=== PATIENT | female | born 1950 | race Caucasian/White ===

== ENCOUNTER 2018-06-23 12:22 | Emergency (ER) | payer MEDICARE, OTHER, SELFPAY ==
[2018-06-23 12:24] VITALS: BP 134/88; PULSE 106; RESP 20; TEMP 36.8; O2SAT 96; BMI 27.4
[2018-06-23 12:28] VITALS: PULSE 86; RESP 22; O2SAT 98
[2018-06-23] MEDS: ALBUTEROL 2.5 MG/3 ML NEB (ADULT) INH (12:28)
--- NOTE | 2018-06-23 12:59 | DI.RAD.S_ITS ---
PROCEDURE: XR CHEST 1V INDICATIONS: short of breath TECHNIQUE: One view of the chest was acquired. COMPARISON: [facility], , CHEST 2 VIEW, 10/23/2008, 1:15. FINDINGS: Surgical changes and devices: None. Lungs and pleura: No pleural effusions or pneumothorax. Lungs are clear. Mediastinum: Mediastinal contours appear normal. Heart size is normal. Bones and chest wall: No suspicious bony lesions. Overlying soft tissues appear unremarkable. IMPRESSION: No acute cardiopulmonary findings. Dictated by: Ira Messina M.D. on 06/23/2018 at 14:23 Approved by: Ira Messina M.D. on 06/23/2018 at 14:23
[2018-06-23 13:00] VITALS: BP 124/93; PULSE 83; RESP 12; O2SAT 100
--- NOTE | 2018-06-23 13:01 | ED.SOB ---
HPI - SOB/Dyspnea General Chief Complaint: Shortness of Breath/Dyspnea Stated Complaint: SOB Time Seen by Provider: 06/23/18 12:31 Source: patient Mode of arrival: ambulatory Limitations: no limitations History of Present Illness Patient is a 68-year-old female with history of asthma presenting with shortness of breath. She says over last 2-3 days she has needed to use her albuterol inhaler about every 2-3 hours. This is pretty atypical for her. She feels her chest gets tight with exertion. No fever no productive cough she does not have chest heaviness or heart palpitations. She has had 1 breathing treatment and does feel little bit better but does not feel back to normal. His MD Complaint: shortness of breath Severity: moderate Exacerbating factors: exertion Related Data Home Medications Medication Instructions Recorded Confirmed Adrenal Stess Calm 1 tab PO DIRECTED 06/23/18 06/23/18 albuterol sulfate [Ventolin HFA] 2 puff INHALATION Q4H PRN 06/23/18 06/23/18 cetirizine [Allergy Relief 10 mg PO DAILY 06/23/18 06/23/18 (cetirizine)] chlorpheniramine maleate 4 mg PO PRN PRN 06/23/18 06/23/18 fluticasone [Flonase Allergy 1 spray INTRANASAL BID 06/23/18 06/23/18 Relief] fluticasone [Flovent HFA] 1 puff INHALATION BID 06/23/18 06/23/18 glucosamine aia-zmprpcrgfs-nvk 1 tab PO DIRECTED 06/23/18 06/23/18 lorazepam [Ativan] 0.25 - 0.5 mg PO Q8H PRN 06/23/18 06/23/18 gfqbgmga-hgm-ofij-FA-lutein 1 tab PO DAILY 06/23/18 06/23/18 [Centrum Silver Women] fvkyz-2a-rxv-epa-fish oil [Fish 1 cap PO DAILY 06/23/18 06/23/18 Oil] sertraline 50 mg PO DAILY 06/23/18 06/23/18 vitamin B complex 1 tab PO DIRECTED 06/23/18 06/23/18 vitamin E 400 unit PO DAILY 06/23/18 06/23/18 Previous Rx's Medication Instructions Recorded prednisone 40 mg PO DAILY #10 tab 06/23/18 Allergies Allergy/AdvReac Type Severity Reaction Status Date / Time venlafaxine [From Effexor] AdvReac Intermediate Difficulty Verified 06/23/18 14:57 Breathing bupropion AdvReac Unknown Anxiety Verified 06/23/18 14:57 escitalopram [From Lexapro] AdvReac Unknown Verified 06/23/18 14:54 fluoxetine AdvReac Unknown Verified 06/23/18 14:57 mirtazapine AdvReac Unknown Verified 06/23/18 14:56 Review of Systems Review of Systems All systems reviewed & are unremarkable except as noted in HPI and below Constitutional Denies chills, Denies fever(s), Denies lethargy and Denies weakness Cardiovascular Reports as per HPI and Reports chest pain Respiratory Reports as per HPI Gastrointestinal Gastrointestinal: Denies abdominal pain, Denies change in bowel habits, Denies diarrhea, Denies nausea and Denies vomiting Musculoskeletal Denies back pain, Denies muscle weakness, Denies numbness and Denies tingling Integumentary/Breasts Denies pruritus, Denies erythema, Denies rash and Denies wounds Neurologic Denies numbness, Denies tingling and Denies weakness [facility] Medical History Asthma (Acute) Social History Smoking Status: Never smoker Exam Initial Vital Signs Initial Vital Signs: Vital Signs Temperature 98.3 F 06/23/18 12:24 Pulse Rate 106 H 06/23/18 12:24 Respiratory Rate 20 06/23/18 12:24 Blood Pressure 134/88 06/23/18 12:24 Pulse Oximetry 96 06/23/18 12:24 GENERAL: Well-appearing, well-nourished and in no acute distress. HEENT: Head atraumatic,EOMI, pupils reactive CARDIOVASCULAR: Regular rate and rhythm without murmurs, rubs or gallops. RESPIRATORY: Decreased breath sounds bilaterally faint expiratory wheezing speak in full sentences no sign of respiratory distress ABDOMEN: Soft, nontender. Normoactive bowel sounds all 4 quadrants. No guarding or rebound. EXTREMITIES: Normal range of motion, no clubbing or edema. Neurovascularly intact NEUROLOGICAL: Alert and oriented x4.Normal gait and speech. Cranial nerves II through XII grossly intact. SKIN: Warm, dry, no laceration, no petechiae, no rashes or lesions. Course Orders Ordered: ED Orders 06/23/18 12:15 EKG-12 Lead Stat 06/23/18 12:58 Consult to Respiratory Therapy Evaluate & Treat B Type Natriuretic Peptide Stat Complete Blood Count AUTO DIFF Stat Comprehensive Metabolic Panel Stat Magnesium Stat Procalcitonin Stat Troponin & CK Cardiac Panel Stat 06/23/18 12:59 XR chest 1V Stat Comprehensive Metabolic Panel Stat Discontinued Medications Albuterol (Ventolin) 2.5 mg INH NOW ONE Stop: 06/23/18 12:28 Last Admin: 06/23/18 12:28 Dose: 2.5 mg Albuterol (Proventil 0.5% Neb Solution) 10 mg INH CONT LILIAN Stop: 06/23/18 13:58 Last Admin: 06/23/18 13:11 Dose: 10 mg Albuterol/Ipratropium (Duoneb) 3 ml INH NOW ONE Stop: 06/23/18 12:59 Last Admin: 06/23/18 13:11 Dose: 3 ml Methylprednisolone (Solu-Medrol 125 Mg Vial) 125 mg IV NOW ONE Stop: 06/23/18 12:59 Last Admin: 06/23/18 13:19 Dose: 125 mg Vital Signs - 8 hr 06/23/18 12:24 06/23/18 12:28 06/23/18 13:00 Temperature 98.3 F Pulse Rate 106 H 86 83 Respiratory Rate 20 22 12 Blood Pressure 134/88 Blood Pressure [Right Arm] 124/93 H Pulse Oximetry 96 98 100 06/23/18 13:22 06/23/18 13:30 06/23/18 14:42 Temperature Pulse Rate 87 89 105 H Respiratory Rate 16 18 19 Blood Pressure Blood Pressure [Right Arm] 126/83 121/78 Pulse Oximetry 100 96 94 MDM - SOB/Dyspnea Lab Data Attestation: I reviewed the patient's lab results. Result diagrams: 06/23/18 13:15 06/23/18 13:15 Lab Results 06/23/18 06/23/18 06/23/18 Range/Units 13:15 13:15 13:15 WBC 8.0 (4.5-11.0) X10^3/uL RBC 4.84 (4.0-5.2) X10^6/uL Hgb 14.2 (12.0-16.0) g/dL Hct 41.7 (36-46) % MCV 86.1 (80-100) fL MCH 29.4 (26-34) PG MCHC 34.2 (30-36) % RDW 13.7 (11.6-14.8) % Plt Count 310 (150-400) X10^3/uL Neut % (Auto) 60.2 (50-75) % Lymph % (Auto) 24.5 L (25-40) % [place] % (Auto) 6.1 (3-14) % Eos % (Auto) 8.7 H (2-4) % Baso % (Auto) 0.5 (0-2) % Neut # (Auto) 4800 (8391-8812) /uL Sodium 141 (137-145) mmol/L Potassium 4.1 (3.4-5.1) mmol/L Chloride 102 (98-107) mmol/L Carbon Dioxide 25 (22-32) mmol/L BUN 13 (7-17) mg/dL Creatinine 0.50 L (0.52-1.04) mg/dL Estimated GFR > 60.0 (>60) mL/min BUN/Creatinine Ratio 26.0 H (6-22) Glucose 91 (80-110) mg/dL Calcium 9.4 (8.4-10.2) mg/dL Magnesium 2.1 (1.6-2.3) mg/dL Total Bilirubin 0.3 (0.2-1.3) mg/dL AST 31 (14-36) IU/L ALT 25 (9-52) IU/L Alkaline Phosphatase 86 (38-126) U/L Total Creatine Kinase 47 (30-135) U/L CK-MB (CK-2) TNP CK-MB (CK-2) Rel Index TNP Troponin I < 0.012 (0.01-0.034) ng/mL B-Natriuretic Peptide < 100.0 (<100) Total Protein 7.3 (6.3-8.2) g/dL Albumin 4.4 (3.5-5.0) g/dL Globulin 2.9 (1.7-4.1) g/dL Albumin/Globulin Ratio 1.5 (1.0-2.8) Procalcitonin < 0.05 (<0.5) ng/mL Imaging Data Chest x-ray: Radiologist's impression: [address] [address] XRay Report Signed Patient: Paz Garcia [facility]#: [id number] : 1Acct:[id number] Age/Sex: 68 / FDate of Service: 06/23/18 Loc: ED Accession Number: [id number] Procedure: XR chest 1V Ordering Provider: Tara Lai D.O. PROCEDURE: XR CHEST 1V INDICATIONS: short of breath TECHNIQUE: One view of the chest was acquired. COMPARISON: [facility], , CHEST 2 VIEW, 10/23/2008, 1:15. FINDINGS: Surgical changes and devices: None. Lungs and pleura: No pleural effusions or pneumothorax. Lungs are clear. Mediastinum: Mediastinal contours appear normal. Heart size is normal. Bones and chest wall: No suspicious bony lesions. Overlying soft tissues appear unremarkable. IMPRESSION: No acute cardiopulmonary findings. Dictated by: Ira Messina M.D. on 06/23/2018 at 14:23 Approved by: Ira Messina M.D. on 06/23/2018 at 14:23 ECG Data Attestation: I personally reviewed and interpreted this ECG as follows: Prior ECG tracings: available for review Interpretation: Normal sinus rhythm rate [address] changes no T-wave inversions, [place] interval 155 QRS 81 similar to previous EKG in 2008 [facility] Narrative Medical decision making narrative: Patient overall is feeling much better after multiple albuterol. She was never hypoxic or in significant respiratory distress. Will start her on prednisone. She feels much better and ready and able to go home Discharge Plan Departure Patient Disposition: Home Clinical Impression: Asthma with exacerbation Discharge Date/Time: 06/23/18 15:18 Interventions: ED Discharge Assessment Last Done: 06/23/18 15:18 Instructions: Asthma -- Adult Activity Restrictions/Additional Instructions: *You have been diagnosed with asthma exacerbation *What to do: Rest, increase fluids, x-rays clear no sign of pneumonia no antibiotics needed at this time *Continue to take medications as directed -prednisone 40 mg once a day for the next 5 days -albuterol inhaler 1-2 puffs every 4 hr if needed for shortness of breath *Follow up with your primary care provider in 2-3 days *Return to ER if you should have increasing shortness of breath, fever or any new, worsening or concerning symptoms Prescriptions: New prednisone 20 mg tablet 40 mg PO DAILY Qty: 10 RF: 0 No Action Adrenal Stess Calm tablet 1 tab PO DIRECTED RF: 0 chlorpheniramine maleate 4 mg Tablet 4 mg PO PRN PRN (Reason: Allergy Symptoms) RF: 0 cetirizine [Allergy Relief (cetirizine)] 10 mg Tablet 10 mg PO DAILY RF: 0 lorazepam [Ativan] 0.5 mg Tablet 0.25 - 0.5 mg PO Q8H PRN (Reason: Sleep) RF: 0 vitamin B complex Tablet 1 tab PO DIRECTED RF: 0 albuterol sulfate [Ventolin HFA] 90 mcg/actuation Hfa Aerosol Inhaler 2 puff INHALATION Q4H PRN (Reason: Shortness Of Breath) RF: 0 fluticasone [Flonase Allergy Relief] 50 mcg/actuation [place],Suspension 1 spray Intranasal BID RF: 0 sertraline 50 mg Tablet 50 mg PO DAILY RF: 0 vitamin E 400 unit Capsule 400 unit PO DAILY RF: 0 fluticasone [Flovent HFA] 110 mcg/actuation Hfa Aerosol Inhaler 1 puff INHALATION BID RF: 0 nfjkprmi-pxw-ljwo-FA-lutein [Centrum Silver Women] 8 mg iron-400 mcg-300 mcg Tablet 1 tab PO DAILY RF: 0 svjkj-2y-qxd-epa-fish oil [Fish Oil] 120 mg-180 mg- 60 mg-1,200 mg Capsule,Delayed Release(Dr/Ec) 1 cap PO DAILY RF: 0 glucosamine sbr-vluyvvelij-hef 1 tab PO DIRECTED RF: 0 Referrals: Niraj Cantu MD [Primary Care Provider] -
--- NOTE | 2018-06-23 13:04 | ED_ITS ---
HPI - SOB/Dyspnea General Chief Complaint: Shortness of Breath/Dyspnea Stated Complaint: SOB Time Seen by Provider: 06/23/18 12:31 Source: patient Mode of arrival: ambulatory Limitations: no limitations History of Present Illness Patient is a 68-year-old female with history of asthma presenting with shortness of breath. She says over last 2-3 days she has needed to use her albuterol inhaler about every 2-3 hours. This is pretty atypical for her. She feels her chest gets tight with exertion. No fever no productive cough she does not have chest heaviness or heart palpitations. She has had 1 breathing treatment and does feel little bit better but does not feel back to normal. His MD Complaint: shortness of breath Severity: moderate Exacerbating factors: exertion Related Data Home Medications Medication Instructions Recorded Confirmed Adrenal Stess Calm 1 tab PO DIRECTED 06/23/18 06/23/18 albuterol sulfate [Ventolin HFA] 2 puff INHALATION Q4H PRN 06/23/18 06/23/18 cetirizine [Allergy Relief 10 mg PO DAILY 06/23/18 06/23/18 (cetirizine)] chlorpheniramine maleate 4 mg PO PRN PRN 06/23/18 06/23/18 fluticasone [Flonase Allergy 1 spray INTRANASAL BID 06/23/18 06/23/18 Relief] fluticasone [Flovent HFA] 1 puff INHALATION BID 06/23/18 06/23/18 glucosamine eiu-whmykirkvs-lhb 1 tab PO DIRECTED 06/23/18 06/23/18 lorazepam [Ativan] 0.25 - 0.5 mg PO Q8H PRN 06/23/18 06/23/18 zhdedaad-xnr-ifyw-FA-lutein 1 tab PO DAILY 06/23/18 06/23/18 [Centrum Silver Women] zoicp-8t-xsi-epa-fish oil [Fish 1 cap PO DAILY 06/23/18 06/23/18 Oil] sertraline 50 mg PO DAILY 06/23/18 06/23/18 vitamin B complex 1 tab PO DIRECTED 06/23/18 06/23/18 vitamin E 400 unit PO DAILY 06/23/18 06/23/18 Previous Rx's Medication Instructions Recorded prednisone 40 mg PO DAILY #10 tab 06/23/18 Allergies Allergy/AdvReac Type Severity Reaction Status Date / Time venlafaxine [From Effexor] AdvReac Intermediate Difficulty Verified 06/23/18 14: 57 Breathing bupropion AdvReac Unknown Anxiety Verified 06/23/18 14:57 escitalopram [From Lexapro] AdvReac Unknown Verified 06/23/18 14:54 fluoxetine AdvReac Unknown Verified 06/23/18 14:57 mirtazapine AdvReac Unknown Verified 06/23/18 14:56 Review of Systems Review of Systems All systems reviewed & are unremarkable except as noted in HPI and below Constitutional Denies chills, Denies fever(s), Denies lethargy and Denies weakness Cardiovascular Reports as per HPI and Reports chest pain Respiratory Reports as per HPI Gastrointestinal Gastrointestinal: Denies abdominal pain, Denies change in bowel habits, Denies diarrhea, Denies nausea and Denies vomiting Musculoskeletal Denies back pain, Denies muscle weakness, Denies numbness and Denies tingling Integumentary/Breasts Denies pruritus, Denies erythema, Denies rash and Denies wounds Neurologic Denies numbness, Denies tingling and Denies weakness [facility] Medical History Asthma (Acute) Social History Smoking Status: Never smoker Exam Initial Vital Signs Initial Vital Signs: Vital Signs Temperature 98.3 F 06/23/18 12:24 Pulse Rate 106 H 06/23/18 12:24 Respiratory Rate 20 06/23/18 12:24 Blood Pressure 134/88 06/23/18 12:24 Pulse Oximetry 96 06/23/18 12:24 GENERAL: Well-appearing, well-nourished and in no acute distress. HEENT: Head atraumatic,EOMI, pupils reactive CARDIOVASCULAR: Regular rate and rhythm without murmurs, rubs or gallops. RESPIRATORY: Decreased breath sounds bilaterally faint expiratory wheezing speak in full sentences no sign of respiratory distress ABDOMEN: Soft, nontender. Normoactive bowel sounds all 4 quadrants. No guarding or rebound. EXTREMITIES: Normal range of motion, no clubbing or edema. Neurovascularly intact NEUROLOGICAL: Alert and oriented x4.Normal gait and speech. Cranial nerves II through XII grossly intact. SKIN: Warm, dry, no laceration, no petechiae, no rashes or lesions. Course Orders Ordered: ED Orders 06/23/18 12:15 EKG-12 Lead Stat 06/23/18 12:58 Consult to Respiratory Therapy Evaluate & Treat B Type Natriuretic Peptide Stat Complete Blood Count AUTO DIFF Stat Comprehensive Metabolic Panel Stat Magnesium Stat Procalcitonin Stat Troponin & CK Cardiac Panel Stat 06/23/18 12:59 XR chest 1V Stat Comprehensive Metabolic Panel Stat Discontinued Medications Albuterol (Ventolin) 2.5 mg INH NOW ONE Stop: 06/23/18 12:28 Last Admin: 06/23/18 12:28 Dose: 2.5 mg Albuterol (Proventil 0.5% Neb Solution) 10 mg INH CONT LILIAN Stop: 06/23/18 13:58 Last Admin: 06/23/18 13:11 Dose: 10 mg Albuterol/Ipratropium (Duoneb) 3 ml INH NOW ONE Stop: 06/23/18 12:59 Last Admin: 06/23/18 13:11 Dose: 3 ml Methylprednisolone (Solu-Medrol 125 Mg Vial) 125 mg IV NOW ONE Stop: 06/23/18 12:59 Last Admin: 06/23/18 13:19 Dose: 125 mg Vital Signs - 8 hr 06/23/18 12:24 06/23/18 12:28 06/23/18 13:00 Temperature 98.3 F Pulse Rate 106 H 86 83 Respiratory Rate 20 22 12 Blood Pressure 134/88 Blood Pressure [Right Arm] 124/93 H Pulse Oximetry 96 98 100 06/23/18 13:22 06/23/18 13:30 06/23/18 14:42 Temperature Pulse Rate 87 89 105 H Respiratory Rate 16 18 19 Blood Pressure Blood Pressure [Right Arm] 126/83 121/78 Pulse Oximetry 100 96 94 MDM - SOB/Dyspnea Lab Data Attestation: I reviewed the patient's lab results. Result diagrams: 06/23/18 13:15 06/23/18 13:15 Lab Results 06/23/18 06/23/18 06/23/18 Range/Units 13:15 13:15 13:15 WBC 8.0 (4.5-11.0) X10^3/uL RBC 4.84 (4.0-5.2) X10^6/uL Hgb 14.2 (12.0-16.0) g/dL Hct 41.7 (36-46) % MCV 86.1 (80-100) fL MCH 29.4 (26-34) PG MCHC 34.2 (30-36) % RDW 13.7 (11.6-14.8) % Plt Count 310 (150-400) X10^3/uL Neut % (Auto) 60.2 (50-75) % Lymph % (Auto) 24.5 L (25-40) % [place] % (Auto) 6.1 (3-14) % Eos % (Auto) 8.7 H (2-4) % Baso % (Auto) 0.5 (0-2) % Neut # (Auto) 4800 (6262-2809) /uL Sodium 141 (137-145) mmol/L Potassium 4.1 (3.4-5.1) mmol/L Chloride 102 (98-107) mmol/L Carbon Dioxide 25 (22-32) mmol/L BUN 13 (7-17) mg/dL Creatinine 0.50 L (0.52-1.04) mg/dL Estimated GFR > 60.0 (>60) mL/min BUN/Creatinine Ratio 26.0 H (6-22) Glucose 91 (80-110) mg/dL Calcium 9.4 (8.4-10.2) mg/dL Magnesium 2.1 (1.6-2.3) mg/dL Total Bilirubin 0.3 (0.2-1.3) mg/dL AST 31 (14-36) IU/L ALT 25 (9-52) IU/L Alkaline Phosphatase 86 (38-126) U/L Total Creatine Kinase 47 (30-135) U/L CK-MB (CK-2) TNP CK-MB (CK-2) Rel Index TNP Troponin I < 0.012 (0.01-0.034) ng/mL B-Natriuretic Peptide < 100.0 (<100) Total Protein 7.3 (6.3-8.2) g/dL Albumin 4.4 (3.5-5.0) g/dL Globulin 2.9 (1.7-4.1) g/dL Albumin/Globulin Ratio 1.5 (1.0-2.8) Procalcitonin < 0.05 (<0.5) ng/mL Imaging Data Chest x-ray: Radiologist's impression: [address] [address] XRay Report Signed Patient: Paz Garcia [facility]#: [id number] : 1Acct:[id number] Age/Sex: 68 / FDate of Service: 06/23/18 Loc: ED Accession Number: [id number] Procedure: XR chest 1V Ordering Provider: Tara Lai D.O. PROCEDURE: XR CHEST 1V INDICATIONS: short of breath TECHNIQUE: One view of the chest was acquired. COMPARISON: [facility], , CHEST 2 VIEW, 10/23/2008, 1:15. FINDINGS: Surgical changes and devices: None. Lungs and pleura: No pleural effusions or pneumothorax. Lungs are clear. Mediastinum: Mediastinal contours appear normal. Heart size is normal. Bones and chest wall: No suspicious bony lesions. Overlying soft tissues appear unremarkable. IMPRESSION: No acute cardiopulmonary findings. Dictated by: Ira Messina M.D. on 06/23/2018 at 14:23 Approved by: Ira Messina M.D. on 06/23/2018 at 14:23 ECG Data Attestation: I personally reviewed and interpreted this ECG as follows: Prior ECG tracings: available for review Interpretation: Normal sinus rhythm rate [address] changes no T-wave inversions, [place] interval 155 QRS 81 similar to previous EKG in 2008 [facility] Narrative Medical decision making narrative: Patient overall is feeling much better after multiple albuterol. She was never hypoxic or in significant respiratory distress. Will start her on prednisone. She feels much better and ready and able to go home Discharge Plan Departure Patient Disposition: Home Clinical Impression: Asthma with exacerbation Discharge Date/Time: 06/23/18 15:18 Interventions: ED Discharge Assessment Last Done: 06/23/18 15:18 Instructions: Asthma -- Adult Activity Restrictions/Additional Instructions: *You have been diagnosed with asthma exacerbation *What to do: Rest, increase fluids, x-rays clear no sign of pneumonia no antibiotics needed at this time *Continue to take medications as directed -prednisone 40 mg once a day for the next 5 days -albuterol inhaler 1-2 puffs every 4 hr if needed for shortness of breath *Follow up with your primary care provider in 2-3 days *Return to ER if you should have increasing shortness of breath, fever or any new, worsening or concerning symptoms Prescriptions: New prednisone 20 mg tablet 40 mg PO DAILY Qty: 10 RF: 0 No Action Adrenal Stess Calm tablet 1 tab PO DIRECTED RF: 0 chlorpheniramine maleate 4 mg Tablet 4 mg PO PRN PRN (Reason: Allergy Symptoms) RF: 0 cetirizine [Allergy Relief (cetirizine)] 10 mg Tablet 10 mg PO DAILY RF: 0 lorazepam [Ativan] 0.5 mg Tablet 0.25 - 0.5 mg PO Q8H PRN (Reason: Sleep) RF: 0 vitamin B complex Tablet 1 tab PO DIRECTED RF: 0 albuterol sulfate [Ventolin HFA] 90 mcg/actuation Hfa Aerosol Inhaler 2 puff INHALATION Q4H PRN (Reason: Shortness Of Breath) RF: 0 fluticasone [Flonase Allergy Relief] 50 mcg/actuation [place],Suspension 1 spray Intranasal BID RF: 0 sertraline 50 mg Tablet 50 mg PO DAILY RF: 0 vitamin E 400 unit Capsule 400 unit PO DAILY RF: 0 fluticasone [Flovent HFA] 110 mcg/actuation Hfa Aerosol Inhaler 1 puff INHALATION BID RF: 0 jpiqyvcw-ogv-adrm-FA-lutein [Centrum Silver Women] 8 mg iron-400 mcg-300 mcg Tablet 1 tab PO DAILY RF: 0 szetk-4e-qmx-epa-fish oil [Fish Oil] 120 mg-180 mg- 60 mg-1,200 mg Capsule, Delayed Release(Dr/Ec) 1 cap PO DAILY RF: 0 glucosamine zsi-ybnwnvrjhi-tks 1 tab PO DIRECTED RF: 0 Referrals: Niraj Cantu MD [Primary Care Provider] -
[2018-06-23] MEDS: ALBUTEROL/IPRATROPIUM 3 ML AMPUL INH (13:11)
[2018-06-23] MEDS: ALBUTEROL 0.5% CONTINUOUS NEB 10 MG INH (13:11)
[2018-06-23] MEDS: methylPREDNISolone 125 MG/2 ML VIAL IV (13:19)
[2018-06-23 13:22] VITALS: PULSE 87; RESP 16; O2SAT 100
[2018-06-23 13:23] LABS: Add Manual Diff / Slide Review NO; Basophils Percent Auto 0.5 % (0-2); Eosinophils Percent Auto 8.7 % (2-4); Hematocrit 41.7 % (36-46); Hemoglobin 14.2 g/dL (12.0-16.0); Lymphocytes Percent Auto 24.5 % (25-40); Mean Corpuscular HGB Conc 34.2 % (30-36); Mean Corpuscular Hemoglobin 29.4 PG (26-34); Mean Corpuscular Volume 86.1 fL (80-100); Monocytes Percent Auto 6.1 % (3-14); Neutrophils Absolute Auto 4800 /uL (3000-5900); Neutrophils Percent Auto 60.2 % (50-75); Platelet Count 310 X10^3/uL (150-400); Red Blood Cell Count 4.84 X10^6/uL (4.0-5.2); Red Cell Distribution Width 13.7 % (11.6-14.8)
[2018-06-23 13:30] VITALS: BP 126/83; PULSE 89; RESP 18; O2SAT 96
[2018-06-23 13:39] LABS: Alanine Aminotransferase 25 IU/L (9-52); Albumin 4.4 g/dL (3.5-5.0); Albumin Globulin Ratio 1.5 (1.0-2.8); Alkaline Phosphatase 86 U/L (38-126); Aspartate Aminotransferase 31 IU/L (14-36); Bilirubin Total 0.3 mg/dL (0.2-1.3); Blood Urea Nitrogen 13 mg/dL (7-17); Calcium 9.4 mg/dL (8.4-10.2); Carbon Dioxide 25 mmol/L (22-32); Chloride 102 mmol/L (98-107); Creatine Kinase 47 U/L (30-135); Estimated Glomerular Filt Rate > 60.0 mL/min (>60); Globulin 2.9 g/dL (1.7-4.1); Glucose 91 mg/dL (80-110); HEMOLYSIS < 15 (0-50); Magnesium 2.1 mg/dL (1.6-2.3); Potassium 4.1 mmol/L (3.4-5.1); Sodium 141 mmol/L (137-145); Total Protein 7.3 g/dL (6.3-8.2)
[2018-06-23 13:51] LABS: Troponin I < 0.012 ng/mL (0.01-0.034)
[2018-06-23 13:55] LABS: Procalcitonin < 0.05 ng/mL (<0.5)
[2018-06-23 14:05] LABS: B Type Natriuretic Peptide < 100.0 (<100)
[2018-06-23 14:42] VITALS: BP 121/78; PULSE 105; RESP 19; O2SAT 94
== END 2018-06-23 15:18 | disposition home or self-care (01) ==
PROVIDERS: Emergency Provider Emergency Medicine; Family Provider Internal Medicine; PCP Internal Medicine
DX: J45.901 Unspecified asthma with (acute) exacerbation (principal)
CPT/HCPCS: 71045; 80053; 82550; 83735; 83880; 84145; 84484; 85025; 93005; 93010; 94150; 94640; 96374; 99283; 99285; J2930; J7611; J7613

== ENCOUNTER → 2018-08-09 15:16 | Outpatient (CLI) | payer MEDICARE, OTHER, SELFPAY ==
--- NOTE | 2018-08-09 | DI.CT.S_ITS ---
PROCEDURE: CT ABDOMEN PELVIS W CON INDICATIONS: unspecified abdominal pain TECHNIQUE: After the administration of oral and intravenous contrast, 5 mm thick sections acquired from the diaphragms to the symphysis. 5 mm thick coronal and sagittal reformats were performed. For radiation dose reduction, the following was used: automated exposure control, adjustment of mA and/or kV according to patient size. COMPARISON: None. FINDINGS: Image quality: Diagnostic ABDOMEN: Lung bases: Lung bases are clear. Heart size is normal. Solid organs: The liver is noted to be hypodense when compared to the spleen. Otherwise, liver is unremarkable. The spleen is within normal limits. The adrenals are not enlarged. The kidneys are normal in size. However, there is a large cystic mass identified involving the inferior pole of the left kidney, which measures 4.6 x 5.3 x 4.5 cm (image 48, series 5 and image 34, series 4). Multiple borderline prominent venous structures adjacent to the left kidney are present. However, no definite intraluminal thrombus is seen within the left renal vein. Mild hydronephrosis of the right kidney probably is related to extrinsic compression of the right ureter. Peritoneum and bowel: There may be a small hiatal hernia. Otherwise, stomach and duodenum are unremarkable. The small bowel loops are nondilated. Moderate residual stool is identified within the colon. Mass effect on the colon from the large pelvic mass is identified. There is a small amount of free fluid identified throughout the abdomen. No loculated fluid collections or free air is evident. Multiple scattered mesenteric nodules are identified, which are seen along the transverse mesocolon and within the bilateral paracolic gutters. There is a large mass arising from the pelvis. Please see below for complete details. Nodes and vessels: No retroperitoneal or mesenteric adenopathy. Aorta and inferior vena cava are normal in caliber. Bones: No acute fracture or dislocation is identified involving the osseous structures of the abdomen. Age-appropriate degenerative changes of the lower lumbar spine are present. No suspicious osseous lesions are evident. PELVIS: Soft tissues: There is a very large heterogeneous mass identified arising from the pelvis, which measures at least 17.1 cm AP by 10.3 cm transverse by 21.9 cm craniocaudal. This mass contains cystic and solid components and is noted to displace multiple vessels and exert mass effect on adjacent structures. Bladder wall thickness is normal. There is a small fat containing left inguinal hernia. Bones: No suspicious bony lesions. No acute pelvic fractures are identified. Age-appropriate degenerative changes of the pelvic joints are present. IMPRESSION: 1. Very large pelvic mass is of uncertain origin, but probably arising from either the uterus or the ovaries. This is suspicious for a neoplasm of genitourinary origin. Lymphoma could potentially have this appearance, as well. Percutaneous biopsy is recommended. 2. Numerous metastatic lesions within the mesentery. 3. Reactive abdominal and pelvic ascites. No loculated fluid collections. 4. 5 cm partly cystic inferior left renal mass is suspicious for a renal neoplasm and may be either the primary site for neoplasm or an additional separate neoplasm. 5. Mild hydronephrosis of the right kidney is likely related to extrinsic compression of the right ureter from the large pelvic mass. 6. Small hiatal hernia. 7. Probable hepatic steatosis. Note: Multiple unsuccessful attempts were made to contact Dr. Cantu, including through a personal pager at approximately 1730 hours (PST) on 08/09/18. Dictated by: Tyrel Morales M.D. on 08/09/2018 at 16:14 Approved by: Tyrel Morales M.D. on 08/09/2018 at 16:45
[2018-08-09 16:12] LABS: Add Manual Diff / Slide Review NO; Basophils Absolute Auto 0 /uL (0-100); Basophils Percent Auto 0.3 % (0-2); Eosinophils Absolute Auto 500 /uL (0-450); Eosinophils Percent Auto 4.9 % (2-4); Hematocrit 42.5 % (36-46); Hemoglobin 13.9 g/dL (12.0-16.0); Lymphocytes Absolute Auto 2100 /uL (1100-4500); Lymphocytes Percent Auto 22.3 % (25-40); Mean Corpuscular HGB Conc 32.6 % (30-36); Mean Corpuscular Hemoglobin 27.9 PG (26-34); Mean Corpuscular Volume 85.5 fL (80-100); Monocytes Absolute Auto 600 /uL (0-900); Monocytes Percent Auto 6.2 % (3-14); Neutrophils Absolute Auto 6200 /uL (1500-7000); Neutrophils Percent Auto 66.3 % (50-75); Platelet Count 375 X10^3/uL (150-400); Red Blood Cell Count 4.97 X10^6/uL (4.0-5.2); Red Cell Distribution Width 14.4 % (11.6-14.8); White Blood Cell Count 9.3 X10^3/uL (4.5-11.0)
[2018-08-09 16:35] LABS: INR 1.1 (0.9-1.3); Prothrombin Time 12.4 SECONDS (10.1-12.7)
[2018-08-09 16:38] LABS: PTT Partial Thromboplastin Tim 30 SECONDS (26.4-36.2)
[2018-08-09 16:42] LABS: Alanine Aminotransferase 38 IU/L (9-52); Albumin 4.4 g/dL (3.5-5.0); Albumin Globulin Ratio 1.6 (1.0-2.8); Alkaline Phosphatase 98 U/L (38-126); Amylase 145 U/L (30-110); Aspartate Aminotransferase 44 IU/L (14-36); Bilirubin Total 0.6 mg/dL (0.2-1.3); Blood Urea Nitrogen 12 mg/dL (7-17); Calcium 9.8 mg/dL (8.4-10.2); Carbon Dioxide 25 mmol/L (22-32); Chloride 99 mmol/L (98-107); Estimated Glomerular Filt Rate > 60.0 mL/min (>60); Globulin 2.8 g/dL (1.7-4.1); Glucose 79 mg/dL (80-110); HEMOLYSIS < 15 (0-50); Lipase 81 U/L (23-300); Potassium 4.8 mmol/L (3.4-5.1); Sodium 137 mmol/L (137-145); Total Protein 7.2 g/dL (6.3-8.2)
[2018-08-09 18:40] LABS: Cancer Antigen 125 753 U/mL (0-35)
== END ==
PROVIDERS: Family Provider Internal Medicine; PCP Internal Medicine; Visit Provider Internal Medicine
DX: C57.9 Malignant neoplasm of female genital organ, unspecified (principal); R10.9 Unspecified abdominal pain; C78.6 Secondary malignant neoplasm of retroperitoneum and peritoneum; R18.8 Other ascites; N28.89 Other specified disorders of kidney and ureter; N13.30 Unspecified hydronephrosis; K44.9 Diaphragmatic hernia without obstruction or gangrene; K40.90 Unilateral inguinal hernia, without obstruction or gangrene, not specified as recurrent
CPT/HCPCS: 36415; 74177; 80053; 82150; 83690; 85025; 85610; 85730; 86304; Q9967

== ENCOUNTER 2018-09-24 14:40 | Emergency (ER) | payer MEDICARE, OTHER, SELFPAY ==
[2018-09-24] VITALS (7 sets, daily range): BP systolic 112–127; BP diastolic 60–73; PULSE 103–134; RESP 18–20; TEMP 38.2–39; O2SAT 91–99
--- NOTE | 2018-09-24 15:26 | DI.RAD.S_ITS ---
PROCEDURE: XR CHEST 1V INDICATIONS: fever, back pain, on chemo TECHNIQUE: One view of the chest was acquired. COMPARISON: [facility], , XR CHEST 1V, 06/23/2018, 13:47. FINDINGS: Surgical changes and devices: Right chest port with the tip projecting at the cavoatrial junction Lungs and pleura: Lungs are clear. No pleural effusions or pneumothorax. Mediastinum: Mediastinal contours appear normal. Heart size is normal. Bones and chest wall: No suspicious bony lesions. Overlying soft tissues appear unremarkable. IMPRESSION: No acute disease Dictated by: Hao Machuca M.D. on 09/24/2018 at 16:03 Approved by: Hao Machuca M.D. on 09/24/2018 at 16:04
--- NOTE | 2018-09-24 15:41 | DI.CT.S_ITS ---
PROCEDURE: CT ABDOMEN PELVIS W CON INDICATIONS: low back/buttock pain, started after sx 2/15 and has worsened. TECHNIQUE: After the administration of oral and intravenous contrast, 5 mm thick sections acquired from the diaphragms to the symphysis. 5 mm thick coronal and sagittal reformats were performed. For radiation dose reduction, the following was used: automated exposure control, adjustment of mA and/or kV according to patient size. COMPARISON: [facility], CT, CT ABDOMEN PELVIS W CON, 08/09/2018, 16:42. FINDINGS: Image quality: Excellent. ABDOMEN: Lung bases: There is mild atelectasis and scarring in the lung bases. Heart size is normal. Solid organs: Evaluation of the liver demonstrates no focal hepatic lesions. The gallbladder appears within normal limits without calcified gallstones. Biliary system is non-dilated. Pancreas enhances normally. Spleen is normal in size and enhancement. No adrenal nodules. There is mild bilateral hydroureteronephrosis secondary to mass effect on the distal ureters. A lobulated left renal mass is redemonstrated measuring up to approximately 4.0 x 4.7 cm in transverse dimension with internal cystic components which may reflect necrosis. This extends anteriorly to the Gerota's fascia. No definite adjacent solid organ invasion or renal vein extension. Peritoneum and bowel: Postsurgical changes are demonstrated status post partial bowel resection with surgical sutures in the pelvis and a diverting left lower quadrant colostomy. There is a large multilobulated peripherally enhancing fluid collection in the pelvis measuring approximately 11.4 x 9.4 x 10.1 cm consistent with an abscess. There is extensive associated inflammatory fat stranding within the pelvis with a small amount of free fluid. The fluid extends to the presacral region. No associated bony erosion. There is associated segmental wall thickening of multiple adjacent small and large bowel loops which is likely reactive. The collection appears contiguous with the residual rectosigmoid colon which demonstrates multiple distention. Nodes and vessels: No retroperitoneal or mesenteric adenopathy by size criteria. Aorta and inferior vena cava are normal in caliber. Miscellaneous: There are postsurgical changes within the ventral, wall. There is also an implanted infusion catheter in the left abdominal wall. No ventral hernias. PELVIS: Genitourinary: There is concentric bladder wall thickening and fat stranding consistent with a cystitis, possibly reactive to the adjacent inflammatory changes in the pelvis. Miscellaneous: No inguinal hernias or adenopathy. Bones: No suspicious bony lesions. No vertebral body compression fractures. IMPRESSION: 1. Large multilobulated peripherally enhancing fluid collection in the pelvis with extensive associated inflammatory changes consistent with an abscess. The collection appears contiguous with the residual rectosigmoid colon and is suspicious for bowel perforation or anastomotic dehiscence. 2. Associated mass effect on the ureters with mild bilateral hydroureteronephrosis. 3. Multilobulated left renal mass highly suspicious for renal cell carcinoma redemonstrated. 4. Diverting left lower quadrant colostomy demonstrated. No evidence of proximal bowel obstruction. Findings discussed with Dr. Lai on 09/24/18 at 5:40 PM [place] time. Dictated by: Nikko Grove M.D. on 09/24/2018 at 16:32 Approved by: Nikko Grove M.D. on 09/24/2018 at 16:46
--- NOTE | 2018-09-24 15:44 | ED_ITS ---
HPI - Back Pain/Injury General Chief Complaint: Back Pain/Injury Stated Complaint: blood pressure low,lot of pain Time Seen by Provider: 09/24/18 15:20 Source: patient, family ( ) and old records reviewed ( office note from Dr. Cantu) Mode of arrival: ambulatory Limitations: no limitations History of Present Illness HPI Narrative: This is a 68-year-old female comes to the emergency department with complaint of fever. Patient states fever started today. She is also complaining of low back but really more like buttock pain in the SI region. Patient states she has had pain since her surgery in mid August but it got a lot worse today. She has felt chilled. She has not had any nasal congestion, no chest pain, shortness of breath or cold cough or congestion. She has been nauseated and had couple episodes of vomiting. She did take Compazine which she states helped. She has had good output from her colostomy. She has had a little bit of clearish drainage from the rectum but no purulent or pus-like drainage. She is not having any rectal pain. Patient has known ovarian cancer as well as a renal cell carcinoma. This is on the left. She has just finished her 2nd round of chemo on Thursday. She was initially being seen by Dr. Christopher Corona [facility] but is supposed to follow up through billing him for her further treatments. She was in the office with her primary care doctor Rodri garcia today and sent to the ER. Related Data Home Medications Medication Instructions Recorded Confirmed Adrenal Stess Calm 1 tab PO DIRECTED 06/23/18 09/24/18 albuterol sulfate [Ventolin HFA] 2 puff INHALATION Q4H PRN 06/23/18 09/24/18 cetirizine [Allergy Relief 10 mg PO DAILY 06/23/18 09/24/18 (cetirizine)] chlorpheniramine maleate 4 mg PO PRN PRN 06/23/18 09/24/18 fluticasone [Flonase Allergy 1 spray INTRANASAL BID 06/23/18 09/24/18 Relief] fluticasone [Flovent HFA] 1 puff INHALATION BID 06/23/18 09/24/18 glucosamine-chondroitin 1 tab PO DIRECTED 06/23/18 09/24/18 lorazepam [Ativan] 0.25 - 0.5 mg PO Q8H PRN 06/23/18 09/24/18 zjnkiggi-kri-sjrm-FA-lutein 1 tab PO DAILY 06/23/18 09/24/18 [Centrum Silver Women] vitamin B complex 1 tab PO DIRECTED 06/23/18 09/24/18 vitamin E 400 unit PO DAILY 06/23/18 09/24/18 Fish Oil 1,200 mg PO DAILY 09/24/18 09/24/18 acetaminophen 500 mg PO Q6H PRN 09/24/18 09/24/18 enoxaparin 1 dose SUBCUT DIRECTED 09/24/18 09/24/18 ibuprofen 1 dose PO DIRECTED 09/24/18 09/24/18 oxycodone 5 mg PO Q6H 09/24/18 09/24/18 polyethylene glycol 3350 [Miralax] 17 g PO DIRECTED 09/24/18 09/24/18 senna 1 dose PO DIRECTED 09/24/18 09/24/18 sertraline 100 mg PO DAILY 09/24/18 09/24/18 Allergies Allergy/AdvReac Type Severity Reaction Status Date / Time venlafaxine [From Effexor] AdvReac Intermediate Difficulty Verified 06/23/18 14:57 Breathing bupropion AdvReac Unknown Anxiety Verified 06/23/18 14:57 escitalopram [From Lexapro] AdvReac Unknown Verified 06/23/18 14:54 fluoxetine AdvReac Unknown Verified 06/23/18 14:57 mirtazapine AdvReac Unknown Verified 06/23/18 14:56 Review of Systems Review of Systems ROS Unobtainable: All systems reviewed & are unremarkable except as noted in HPI and below Constitutional Reports anorexia, Reports chills, Reports fever(s), Denies headache(s), Denies lethargy and Denies weakness ENT Ears, Nose, Mouth, and Throat: Denies change in voice, Denies headache(s), Denies nasal congestion, Denies neck pain and Denies sore throat Cardiovascular Denies chest pain, Denies syncope, Denies irregular heart rhythm, Denies lightheadedness, Denies palpitations, Denies dyspnea, Denies dyspnea on exertion and Denies orthopnea Respiratory Denies chest congestion, Denies cough, Denies pain on inspiration, Denies dyspnea, Denies dyspnea on exertion and Denies wheezing Gastrointestinal Gastrointestinal: Denies abdominal pain, Denies change in bowel habits, Denies diarrhea, Reports nausea and Reports vomiting Genitourinary Denies hematuria, Denies urinary frequency, Denies dysuria, Denies flank pain, Denies urinary incontinence and Denies urinary urgency Musculoskeletal Reports back pain (very low back, tailbone), Denies arthralgias and Denies neck pain Integumentary/Breasts Denies unusual bruising, Reports wounds and Reports other (incisions) Neurologic Denies syncope, Denies headache(s) and Denies weakness Endocrine Denies palpitations Allergic/Immunologic Denies wheezing PFSH Medical History Ovarian cancer (Acute) Renal cell carcinoma (Acute) Asthma (Acute) Social History Smoking Status: Never smoker Social History marital status: Smoking Status: Never smoker Exam Narrative Exam Narrative: GEN: well nourished, well appearing female, alert and oriented x 3, patient appears to be in mild distress. HEENT: Atraumatic, pupils are equal round reactive to light, extraocular movements are intact, nares are clear. Throat is clear without any exudates, erythema, tonsillar enlargement or uvular deviation HEART: Regular rate and rhythm without murmur, clicks, rubs. LUNGS:Lungs clear to auscultation, no wheezes, rales, crackles, chest moves symmetrically. no tachypnea or accessory muscle use. ABD:bowel sounds normal, soft, non-tender, no guarding, rebound, rigidity, no masses noted, no hepatosplenomegaly. patient has colostomy on the left lower side which is draining brownish stool. :No CVA tenderness. BACK: No cervical, thoracic or lumbar vertebral point tenderness. Patient has normal range of motion. Patient's gait is not tested. Muscle strength is 5/5 in lower extremities, Dorsalis pedis and tibialis pulses are 2+ and lower extremities. Sensation is intact in the lower extremities. MSCL: Non-tender, no muscle atrophy, muscles strength 5/5 upper and lower extremities, full range of motion, normal gait NEURO:CN 2-12 intact, sensation normal, Initial Vital Signs Initial Vital Signs: Vital Signs Temperature 100.8 F H 09/24/18 15:05 Pulse Rate 134 H 09/24/18 15:05 Blood Pressure 112/72 09/24/18 15:05 Pulse Oximetry 96 09/24/18 15:05 Course Orders Ordered: ED Orders 09/24/18 15:26 XR chest 1V Stat 09/24/18 15:41 CT abdomen pelvis w con Stat 09/24/18 16:09 Complete Blood Count AUTO DIFF Stat Comprehensive Metabolic Panel Stat Lactate (Lactic Acid) Stat Partial Thromboplastin Time Stat Procalcitonin Stat Prothrombin Time INR Stat 09/24/18 16:27 Blood Culture Stat Hydromorphone HCl (Dilaudid) 2 mg IV NOW PRN PRN Reason: Pain, Moderate (4-6) Metronidazole (Flagyl) 500 mg in 100 mls @ 100 mls/hr IV NOW ONE Stop: 09/24/18 19:45 Last Admin: 09/24/18 19:08 Dose: 100 mls/hr Discontinued Medications Acetaminophen (Tylenol) 975 mg PO NOW ONE Stop: 09/24/18 15:42 Last Admin: 09/24/18 16:22 Dose: Not Given Hydromorphone HCl (Dilaudid) 1 mg IV NOW ONE Stop: 09/24/18 15:42 Last Admin: 09/24/18 16:17 Dose: 1 mg Hydromorphone HCl (Dilaudid) 1 mg IV NOW ONE Stop: 09/24/18 18:03 Last Admin: 09/24/18 18:03 Dose: 1 mg Cefepime HCl 2 gm/ Sodium (Chloride) 100 mls @ 200 mls/hr IV NOW ONE Stop: 09/24/18 15:27 Last Infusion: 09/24/18 17:01 Dose: 0 mls/hr Admin: 09/24/18 16:21 Dose: 200 mls/hr Sodium Chloride (Normal Saline 0.9%) 1,877.88 mls @ 625.96 mls/hr 30 ml/kg infuse over 3 hr (1877.88 ml) IV NOW ONE Stop: 09/24/18 18:25 Last Admin: 09/24/18 16:18 Dose: 625.96 mls/hr Piperacillin/Tazobactam/Dextrose (Zosyn) 3.375 gm in 50 mls @ 100 mls/hr IV NOW ONE Stop: 09/24/18 19:30 Ondansetron HCl (Zofran) 4 mg IV NOW ONE Stop: 09/24/18 15:45 Last Admin: 09/24/18 16:17 Dose: 4 mg Vital Signs - 8 hr 09/24/18 15:05 09/24/18 16:30 09/24/18 17:00 Temperature 100.8 F H 102.2 F H Pulse Rate 134 H 109 H 106 H Respiratory Rate 20 20 Blood Pressure 112/72 Blood Pressure [Left Arm] 116/73 116/60 Pulse Oximetry 96 91 96 09/24/18 18:08 Temperature Pulse Rate 112 H Respiratory Rate 20 Blood Pressure Blood Pressure [Left Arm] 112/71 Pulse Oximetry 92 MDM - Back Pain/Injury Lab Data Attestation: I reviewed the patient's lab results. Result diagrams: 09/24/18 16:09 09/24/18 16:09 Lab Results 09/24/18 09/24/18 09/24/18 Range/Units 16:09 16:09 16:09 WBC 14.7 H (4.5-11.0) X10^3/uL RBC 3.81 L (4.0-5.2) X10^6/uL Hgb 10.6 L (12.0-16.0) g/dL Hct 31.7 L (36-46) % MCV 83.3 (80-100) fL MCH 27.7 (26-34) PG MCHC 33.3 (30-36) % RDW 14.9 H (11.6-14.8) % Plt Count 359 (150-400) X10^3/uL Neut % (Auto) Not Reportable Lymph % (Auto) Not Reportable [place] % (Auto) Not Reportable Eos % (Auto) Not Reportable Baso % (Auto) Not Reportable Lymph # (Auto) Not Reportable [place] # (Auto) Not Reportable Baso # (Auto) Not Reportable Total Counted 100 Seg Neutrophils % 81.0 H (38-70) % Band Neutrophils % 16.0 H (3-7) % Lymphocytes % (Manual) 3.0 L (25-45) % Neutrophils # (Manual) 26285 H (8267-7247) /uL RBC Morphology Normal morphology PT 14.4 H (10.1-12.7) SECONDS INR 1.3 (0.9-1.3) APTT 22 L D (26.4-36.2) SECONDS Sodium (137-145) mmol/L Potassium (3.4-5.1) mmol/L Chloride (98-107) mmol/L Carbon Dioxide (22-32) mmol/L BUN (7-17) mg/dL Creatinine (0.52-1.04) mg/dL Estimated GFR (>60) mL/min BUN/Creatinine Ratio (6-22) Glucose (80-110) mg/dL Lactate (0.7-2.1) mmol/L Calcium (8.4-10.2) mg/dL Total Bilirubin (0.2-1.3) mg/dL AST (14-36) IU/L ALT (9-52) IU/L Alkaline Phosphatase (38-126) U/L Total Protein (6.3-8.2) g/dL Albumin (3.5-5.0) g/dL Globulin (1.7-4.1) g/dL Albumin/Globulin Ratio (1.0-2.8) Procalcitonin 1.15 H (<0.5) ng/mL 09/24/18 09/24/18 Range/Units 16:09 16:09 WBC (4.5-11.0) X10^3/uL RBC (4.0-5.2) X10^6/uL Hgb (12.0-16.0) g/dL Hct (36-46) % MCV (80-100) fL MCH (26-34) PG MCHC (30-36) % RDW (11.6-14.8) % Plt Count (150-400) X10^3/uL Neut % (Auto) Lymph % (Auto) [place] % (Auto) Eos % (Auto) Baso % (Auto) Lymph # (Auto) [place] # (Auto) Baso # (Auto) Total Counted Seg Neutrophils % (38-70) % Band Neutrophils % (3-7) % Lymphocytes % (Manual) (25-45) % Neutrophils # (Manual) (4203-5106) /uL RBC Morphology PT (10.1-12.7) SECONDS INR (0.9-1.3) APTT (26.4-36.2) SECONDS Sodium 128 L (137-145) mmol/L Potassium 3.9 (3.4-5.1) mmol/L Chloride 92 L (98-107) mmol/L Carbon Dioxide 23 (22-32) mmol/L BUN 18 H (7-17) mg/dL Creatinine 0.60 (0.52-1.04) mg/dL Estimated GFR > 60.0 (>60) mL/min BUN/Creatinine Ratio 30.0 H (6-22) Glucose 153 H (80-110) mg/dL Lactate 0.7 (0.7-2.1) mmol/L Calcium 9.0 (8.4-10.2) mg/dL Total Bilirubin 0.4 (0.2-1.3) mg/dL AST 19 (14-36) IU/L ALT 27 (9-52) IU/L Alkaline Phosphatase 72 (38-126) U/L Total Protein 6.6 (6.3-8.2) g/dL Albumin 3.6 (3.5-5.0) g/dL Globulin 3.0 (1.7-4.1) g/dL Albumin/Globulin Ratio 1.2 (1.0-2.8) Procalcitonin (<0.5) ng/mL Imaging Data Chest x-ray: Radiologist's impression: [place] [address] XRay Report Signed Patient: Paz Garcia [facility]#: [id number] : 1950cct:[id number] Age/Sex: 68 / FDate of Service: 09/24/18 Loc: ED Accession Number: [id number] Procedure: XR chest 1V Ordering Provider: Chanda Lai D.O. PROCEDURE: XR CHEST 1V INDICATIONS: fever, back pain, on chemo TECHNIQUE: One view of the chest was acquired. COMPARISON: [facility], , XR CHEST 1V, 06/23/2018, 13:47. FINDINGS: Surgical changes and devices: Right chest port with the tip projecting at the cavoatrial junction Lungs and pleura: Lungs are clear. No pleural effusions or pneumothorax. Mediastinum: Mediastinal contours appear normal. Heart size is normal. Bones and chest wall: No suspicious bony lesions. Overlying soft tissues appear unremarkable. IMPRESSION: No acute disease Dictated by: Hao Machuca M.D. on 09/24/2018 at 16:03 Approved by: Hao Machuca M.D. on 09/24/2018 at 16:04 CT scan - abdomen: Radiologist's impression: Paz Garcia 68 F [address] [address] [address] Scan Report Signed Patient: Paz Garcia [facility]#: [id number] : 1950cct:[id number] Age/Sex: 68 / FDate of Service: 09/24/18 Loc: ED Accession Number: [id number] Procedure: CT abdomen pelvis w con Ordering Provider: Chanda Lai D.O. PROCEDURE: CT ABDOMEN PELVIS W CON INDICATIONS: low back/buttock pain, started after sx 08/27 and has worsened. TECHNIQUE: After the administration of oral and intravenous contrast, 5 mm thick sections acquired from the diaphragms to the symphysis. 5 mm thick coronal and sagittal reformats were performed. For radiation dose reduction, the following was used: automated exposure control, adjustment of mA and/or kV according to patient size. COMPARISON: [facility], CT, CT ABDOMEN PELVIS W CON, 08/09/2018, 16:42. FINDINGS: Image quality: Excellent. ABDOMEN: Lung bases: There is mild atelectasis and scarring in the lung bases. Heart size is normal. Solid organs: Evaluation of the liver demonstrates no focal hepatic lesions. Th e gallbladder appears within normal limits without calcified gallstones. Biliary system is non-dilated. Pancreas enhances normally. Spleen is normal in size and enhancement. No adrenal nodules. There is mild bilateral hydroureteronephrosis secondary to mass effect on the distal ureters. A lobulated left renal mass is redemonstrated measuring up to approximately 4.0 x 4.7 cm in transverse dimension with internal cystic components which may reflect necrosis. This extends anteriorly to the Gerota's fascia. No definite adjacent solid organ invasion or renal vein extension. Peritoneum and bowel: Postsurgical changes are demonstrated status post partial bowel resection with surgical sutures in the pelvis and a diverting left lower quadrant colostomy. There is a large multilobulated peripherally enhancing fluid collection in the pelvis measuring approximately 11.4 x 9.4 x 10.1 cm consistent with an abscess. There is extensive associated inflammatory fat stranding within the pelvis with a small amount of free fluid. The fluid extends to the presacral region. No associated bony erosion. There is associated segmental wall thickening of multiple adjacent small and large bow el loops which is likely reactive. The collection appears contiguous with the residual rectosigmoid colon which demonstrates multiple distention. Nodes and vessels: No retroperitoneal or mesenteric adenopathy by size criteria. Aorta and inferior vena cava are normal in caliber. Miscellaneous: There are postsurgical changes within the ventral, wall. There is also an implanted infusion catheter in the left abdominal wall. No ventral hernias. PELVIS: Genitourinary: There is concentric bladder wall thickening and fat stranding consistent with a cystitis, possibly reactive to the adjacent inflammatory changes in the pelvis. Miscellaneous: No inguinal hernias or adenopathy. Bones: No suspicious bony lesions. No vertebral body compression fractures. IMPRESSION: 1. Large multilobulated peripherally enhancing fluid collection in the pelvis with extensive associated inflammatory changes consistent with an abscess. The collection appears contiguous with the residual rectosigmoid colon and is suspicious for bowel perforation or anastomotic dehiscence. 2. Associated mass effect on the ureters with mild bilateral hydroureteronephrosis. 3. Multilobulated left renal mass highly suspicious for renal cell carcinoma redemonstrated. 4. Diverting left lower quadrant colostomy demonstrated. No evidence of proximal bowel obstruction. Findings discussed with Dr. Lai on 09/24/18 at 5:40 PM pacific time. Dictated by: Nikko Grove M.D. on 09/24/2018 at 16:32 Approved by: Nikko Grove M.D. on 09/24/2018 at 16:46 MDM Narrative Medical decision making narrative: Initially patient was concerning for febrile neutropenia as patient was 4 days status post her 2nd chemo treatment. White count was actually 14 patient was initially given cefepime. Patient's he moglobin is at 10 and this may be secondary to her recent surgery in August. Patient is renal function and electrolytes show that her kidney function is normal but sodium is 128 with chloride that is also decreased at 97. Procalcitonin is positive. Blood cultures are pending. Patient had been complaining of lower pelvic sort of low back pain. She was really complaining of abdominal pain but CT abdomen and pelvis were ordered was not really her lumbar spine that was hurting which shows a large loculated fluid collection consistent with abscess the largest diameter is 11 cm patient had her surgery at [facility] and they were contacted. Spoke with Dr. Stokes who suggested the patient come to them for interventional radiology treatment and drain versus surgery and IV antibiotics. We discussed that we do not have IR available for this. surgery did recommend Flagyl Zosyn coverage. She is septic she has not been hypotensive in the department. She has received Tylenol fever improved and then increased given Motrin. [facility] is very tight on beds at this and kindly accept patient for transfer under Dr. Stokes, plan for patient transfer to ER. Discharge Plan Departure Patient Disposition: [facility] Clinical Impression: Pelvic abscess, History of abdominal surgery Sepsis Qualifiers: Sepsis type: sepsis due to unspecified organism Qualified Code(s): A41.9 - S epsis, unspecified organism Prescriptions: No Action polyethylene glycol 3350 [Miralax] 17 gram Powder In Packet 17 g PO DIRECTED RF: 0 sertraline 100 mg tablet 100 mg PO DAILY RF: 0 ibuprofen 200 mg Tablet 1 dose PO DIRECTED RF: 0 acetaminophen 500 mg Capsule 500 mg PO Q6H PRN (Reason: PAIN) RF: 0 oxycodone 5 mg tablet 5 mg PO Q6H RF: 0 enoxaparin 40 mg/0.4 mL syringe 1 dose subcut DIRECTED RF: 0 Fish Oil 1,200 MG 1,200 mg PO DAILY RF: 0 senna 1 dose PO DIRECTED RF: 0 Adrenal Stess Calm tablet 1 tab PO DIRECTED RF: 0 chlorpheniramine maleate 4 mg Tablet 4 mg PO PRN PRN (Reason: Allergy Symptoms) RF: 0 cetirizine [Allergy Relief (cetirizine)] 10 mg Tablet 10 mg PO DAILY RF: 0 lorazepam [Ativan] 0.5 mg Tablet 0.25 - 0.5 mg PO Q8H PRN (Reason: Sleep) RF: 0 vitamin B complex Tablet 1 tab PO DIRECTED RF: 0 albuterol sulfate [Ventolin HFA] 90 mcg/actuation Hfa Aerosol Inhaler 2 puff INHALATION Q4H PRN (Reason: Shortness Of Breath) RF: 0 fluticasone [Flonase Allergy Relief] 50 mcg/actuation [place],Suspension 1 spray Intranasal BID RF: 0 vitamin E 400 unit Capsule 400 unit PO DAILY RF: 0 Flovent HFA 110 mcg/actuation Hfa Aerosol Inhaler 1 puff INHALATION BID RF: 0 Centrum Silver Women 8 mg iron-400 mcg-300 mcg Tablet 1 tab PO DAILY RF: 0 glucosamine-chondroitin 1 tab PO DIRECTED RF: 0 Referrals: Niraj Cantu MD [Primary Care Provider] -
[2018-09-24] MEDS: HYDROMORPHONE 1 MG INJ IV ×2 (16:17→18:03)
[2018-09-24] MEDS: ONDANSETRON 4 MG/2 ML INJ IV (16:17)
[2018-09-24] MEDS: SODIUM CHLORIDE 0.9% 1,877.88 ML 625.96 ML IV (16:18)
[2018-09-24] MEDS: CEFEPIME 2 GM in SODIUM CHLORIDE 0.9% 100 ML 200 ML IV (16:21)
[2018-09-24 16:22] LABS: Hematocrit 31.7 % (36-46); Hemoglobin 10.6 g/dL (12.0-16.0); Mean Corpuscular HGB Conc 33.3 % (30-36); Mean Corpuscular Hemoglobin 27.7 PG (26-34); Mean Corpuscular Volume 83.3 fL (80-100); Platelet Count 359 X10^3/uL (150-400); Red Blood Cell Count 3.81 X10^6/uL (4.0-5.2); Red Cell Distribution Width 14.9 % (11.6-14.8); White Blood Cell Count 14.7 X10^3/uL (4.5-11.0)
[2018-09-24 16:30] LABS: INR 1.3 (0.9-1.3); Prothrombin Time 14.4 SECONDS (10.1-12.7)
[2018-09-24 16:32] LABS: PTT Partial Thromboplastin Tim 22 SECONDS (26.4-36.2)
[2018-09-24 16:47] LABS: Add Manual Diff / Slide Review YES; Alanine Aminotransferase 27 IU/L (9-52); Albumin 3.6 g/dL (3.5-5.0); Albumin Globulin Ratio 1.2 (1.0-2.8); Alkaline Phosphatase 72 U/L (38-126); Aspartate Aminotransferase 19 IU/L (14-36); Bilirubin Total 0.4 mg/dL (0.2-1.3); Blood Urea Nitrogen 18 mg/dL (7-17); Carbon Dioxide 23 mmol/L (22-32); Chloride 92 mmol/L (98-107); Estimated Glomerular Filt Rate > 60.0 mL/min (>60); Glucose 153 mg/dL (80-110); HEMOLYSIS < 15 (0-50); Lactate (Lactic Acid) 0.7 mmol/L (0.7-2.1); Potassium 3.9 mmol/L (3.4-5.1); Sodium 128 mmol/L (137-145); Total Protein 6.6 g/dL (6.3-8.2)
[2018-09-24 16:55] LABS: Neutrophils Absolute Manual 14259 /uL (3000-5900); RBC Morphology Normal Morphology; Total Cells Counted 100
[2018-09-24 17:08] LABS: Procalcitonin 1.15 ng/mL (<0.5)
--- NOTE | 2018-09-24 18:07 | PC.NURSE ---
I asked pt to call me when her pain started coming back and she did. Dr. Lai verbally ok'd giving her another dose of Dilaudid.
[2018-09-24] MEDS: metroNIDAZOLE 500 MG/100 ML PIGGYBACK 100 MG IV (19:08)
[2018-09-24] MEDS: PIPERACILLIN-TAZO 3.375 GM/50 ML FROZ.PIGGY IV (20:09)
== END 2018-09-24 20:50 | disposition short-term general hospital (02) ==
PROVIDERS: Emergency Medicine; Emergency Provider Emergency Medicine; Family Provider Internal Medicine; PCP Internal Medicine
DX: N73.9 Female pelvic inflammatory disease, unspecified (principal); Z98.890 Other specified postprocedural states
CPT/HCPCS: 36415; 36591; 71045; 74177; 80053; 83605; 84145; 85025; 85610; 85730; 87040; 96361; 96365; 96367; 96375; 96376; 99285; J0692; J1170; J2405; J2543; Q9967

== ENCOUNTER 2018-09-27 23:20 | Emergency (ER) | payer MEDICARE, OTHER, SELFPAY ==
[2018-09-27 23:36] VITALS: BP 140/79; PULSE 96; RESP 28; TEMP 37.1; O2SAT 100; BMI 24.4
--- NOTE | 2018-09-27 23:46 | ED.SKABFB ---
HPI - Skin/Abscess/Foreign Bdy General Chief complaint: Skin/Abscess/Foreign Body Stated complaint: pus oozing out of ostomy - was in Time Seen by Provider: 09/27/18 23:35 Source: patient Mode of arrival: ambulatory Limitations: no limitations History of Present Illness HPI narrative: Patient is a 68-year-old female who was just discharged from the [facility] today. She was sent there after she was 1st evaluated here at this hospital and found to have a intra-abdominal/pelvic abscess. She states she was sent to [facility] after that visit here a couple days ago. She states she was continued on IV antibiotics. She states that no procedures were done because of the location of the abscess. She stated that she was discharged after being 48 hr without any symptoms. She was discharged on Augmentin. She returns to the emergency department today because when she got home and she changed the bag from her colostomy she noticed that there was what appeared to be pus coming from around the ostomy. She states that she feels well. Has no abdominal pain. Still having fecal drainage from the ostomy site. Related Data Home Medications Medication Instructions Recorded Confirmed Adrenal Stess Calm 1 tab PO DIRECTED 06/23/18 09/24/18 albuterol sulfate [Ventolin HFA] 2 puff INHALATION Q4H PRN 06/23/18 09/24/18 cetirizine [Allergy Relief 10 mg PO DAILY 06/23/18 09/24/18 (cetirizine)] chlorpheniramine maleate 4 mg PO PRN PRN 06/23/18 09/24/18 fluticasone propionate [Flonase 1 spray INTRANASAL BID 06/23/18 09/24/18 Allergy Relief] fluticasone propionate [Flovent 1 puff INHALATION BID 06/23/18 09/24/18 HFA] glucosamine-chondroitin 1 tab PO DIRECTED 06/23/18 09/24/18 lorazepam [Ativan] 0.25 - 0.5 mg PO Q8H PRN 06/23/18 09/24/18 zlevntfp-ber-jbrl-FA-lutein 1 tab PO DAILY 06/23/18 09/24/18 [Centrum Silver Women] vitamin B complex 1 tab PO DIRECTED 06/23/18 09/24/18 vitamin E 400 unit PO DAILY 06/23/18 09/24/18 Fish Oil 1,200 mg PO DAILY 09/24/18 09/24/18 acetaminophen 500 mg PO Q6H PRN 09/24/18 09/24/18 enoxaparin 1 dose SUBCUT DIRECTED 09/24/18 09/24/18 ibuprofen 1 dose PO DIRECTED 09/24/18 09/24/18 oxycodone 5 mg PO Q6H 09/24/18 09/24/18 polyethylene glycol 3350 [Miralax] 17 g PO DIRECTED 09/24/18 09/24/18 senna 1 dose PO DIRECTED 09/24/18 09/24/18 sertraline 100 mg PO DAILY 09/24/18 09/24/18 Allergies Allergy/AdvReac Type Severity Reaction Status Date / Time venlafaxine [From Effexor] AdvReac Intermediate Difficulty Verified 06/23/18 14:57 Breathing bupropion AdvReac Unknown Anxiety Verified 06/23/18 14:57 escitalopram [From Lexapro] AdvReac Unknown Verified 06/23/18 14:54 fluoxetine AdvReac Unknown Verified 06/23/18 14:57 mirtazapine AdvReac Unknown Verified 06/23/18 14:56 Review of Systems Constitutional Denies fever(s) Cardiovascular Denies chest pain and Denies dyspnea Respiratory Denies dyspnea Gastrointestinal Gastrointestinal: Denies abdominal pain Comments: Purulent drainage from around the ostomy site Integumentary/Breasts Comments: No redness of the abdomen Hematologic/Lymphatic Denies easy bleeding and Denies easy bruising PFSH Medical History Asthma (Acute) Ovarian cancer (Acute) Renal cell carcinoma (Acute) Social History marital status: Smoking Status: Never smoker Exam Initial Vital Signs Initial Vital Signs: Vital Signs Temperature 98.7 F 09/27/18 23:36 Pulse Rate 96 H 09/27/18 23:36 Respiratory Rate 28 H 09/27/18 23:36 Blood Pressure 140/79 09/27/18 23:36 Pulse Oximetry 100 09/27/18 23:36 Const General: cooperative, comfortable, well developed, well groomed and No acute distress Orientation: alert, awake and oriented x3 HENMT Head: normal to inspection and normocephalic Resp Effort & Inspection: normal respiratory effort Auscultation: clear to auscultation bilaterally Cardio Rate: regular rate Rhythm: regular rhythm GI Other: Ostomy site looks well. There does appear to be what looks like purulent material coming from around the stoma where it meets the abdominal wall. It is not coming from the ostomy itself. We were able to express material by pushing on the abdomen around it. Skin Other: No redness of the skin surrounding the stoma Neuro General: alert, awake and oriented x3 Extrem General: normal to inspection and capillary refill normal Psych Appearance: grossly normal and well kempt Course Vital Signs - 8 hr 09/27/18 23:36 09/28/18 01:42 Temperature 98.7 F Pulse Rate 96 H 90 Respiratory Rate 28 H Blood Pressure 140/79 Blood Pressure [Left Arm] 127/73 Pulse Oximetry 100 97 MDM - Skin/Abscess/Foreign Bdy MDM Narrative Medical decision making narrative: Patient looks well. Afebrile. Discussed the case with Dr. antunez at the [facility] who states that if the patient looks well the fact that it is draining from around the stoma is not unexpected. She has a known intra-abdominal abscess that was not drained while they were down there due to the location and other factors. Her recommendation was to continue the patient on the oral antibiotics and have her call their office tomorrow for follow-up later this week with repeat imaging. I discussed all this with the patient. She was given return precautions. She expressed understanding and agreement with plan. Discharge Plan Departure Patient Disposition: Home Clinical Impression: Abscess of skin or subcutaneous tissue Qualifiers: Site of cutaneous abscess: unspecified site Qualified Code(s): L02.91 - Cutaneous abscess, unspecified Activity Restrictions/Additional Instructions: Continue the antibiotics that you were given upon discharge today. Tomorrow morning contact the surgery clinic down at the [facility] to schedule a follow-up in the next couple days. Continue the care of the stoma like normal. Return to the emergency department for any new symptoms, worsening symptoms, fevers, skin changes or any other concerning symptoms. Prescriptions: No Action polyethylene glycol 3350 [Miralax] 17 gram Powder In Packet 17 g PO DIRECTED RF: 0 sertraline 100 mg tablet 100 mg PO DAILY RF: 0 ibuprofen 200 mg Tablet 1 dose PO DIRECTED RF: 0 acetaminophen 500 mg Capsule 500 mg PO Q6H PRN (Reason: PAIN) RF: 0 oxycodone 5 mg tablet 5 mg PO Q6H RF: 0 enoxaparin 40 mg/0.4 mL syringe 1 dose subcut DIRECTED RF: 0 Fish Oil 1,200 MG 1,200 mg PO DAILY RF: 0 senna 1 dose PO DIRECTED RF: 0 Adrenal Stess Calm tablet 1 tab PO DIRECTED RF: 0 chlorpheniramine maleate 4 mg Tablet 4 mg PO PRN PRN (Reason: Allergy Symptoms) RF: 0 cetirizine [Allergy Relief (cetirizine)] 10 mg Tablet 10 mg PO DAILY RF: 0 lorazepam [Ativan] 0.5 mg Tablet 0.25 - 0.5 mg PO Q8H PRN (Reason: Sleep) RF: 0 vitamin B complex Tablet 1 tab PO DIRECTED RF: 0 albuterol sulfate [Ventolin HFA] 90 mcg/actuation Hfa Aerosol Inhaler 2 puff INHALATION Q4H PRN (Reason: Shortness Of Breath) RF: 0 fluticasone propionate [Flonase Allergy Relief] 50 mcg/actuation Tiff,Suspension 1 spray Intranasal BID RF: 0 vitamin E 400 unit Capsule 400 unit PO DAILY RF: 0 Flovent HFA 110 mcg/actuation Hfa Aerosol Inhaler 1 puff INHALATION BID RF: 0 Centrum Silver Women 8 mg iron-400 mcg-300 mcg Tablet 1 tab PO DAILY RF: 0 glucosamine-chondroitin 1 tab PO DIRECTED RF: 0 Referrals: Niraj Cantu MD [Primary Care Provider] -
[2018-09-28 01:42] VITALS: BP 127/73; PULSE 90; O2SAT 97
== END 2018-09-28 01:58 | disposition home or self-care (01) ==
PROVIDERS: Emergency Provider Emergency Medicine; Family Provider Internal Medicine; PCP Internal Medicine
DX: L02.91 Cutaneous abscess, unspecified (principal)
CPT/HCPCS: 99282

== ENCOUNTER → 2018-10-04 13:09 | Outpatient (CLI) | payer MEDICARE, OTHER, SELFPAY ==
[2018-10-04 15:41] LABS: Blood Urea Nitrogen 12 mg/dL (7-17); Estimated Glomerular Filt Rate > 60.0 mL/min (>60)
== END ==
PROVIDERS: Family Provider Internal Medicine; PCP Internal Medicine; Visit Provider Internal Medicine
DX: K65.1 Peritoneal abscess (principal)
CPT/HCPCS: 36415; 82565; 84520

== ENCOUNTER → 2018-10-06 09:54 | Outpatient (CLI) | payer MEDICARE, OTHER, SELFPAY ==
--- NOTE | 2018-10-06 | DI.CT.S_ITS ---
PROCEDURE: CT ABDOMEN PELVIS W CON INDICATIONS: Peritoneal abscess TECHNIQUE: After the administration of oral and intravenous contrast, 5 mm thick sections acquired from the diaphragms to the symphysis. 5 mm thick coronal and sagittal reformats were performed. For radiation dose reduction, the following was used: automated exposure control, adjustment of mA and/or kV according to patient size. COMPARISON: [facility], CT, CT ABDOMEN PELVIS W CON, 09/24/2018, 17:12. [facility], CT, CT ABDOMEN PELVIS W CON, 08/09/2018, 16:42. FINDINGS: Image quality: Excellent. ABDOMEN: Lung bases: Lung bases are near clear but there is a small amount of scarring in each lung base and a 2 mm nodule at the far periphery of the posterolateral left lower lobe (series 3 image 7).. Heart size is normal. Solid organs: Liver is normal in size and enhancement. Gallbladder appears normal. Biliary system is non-dilated. Pancreas enhances normally. Spleen is normal in size and enhancement. No adrenal nodules. Kidneys are normal in size and the right kidney is normal in enhancement, without hydronephrosis bilaterally. There is, however, again noted the malignant-appearing mass exophytic from the anterior border of the junction of the middle and lower thirds of the left kidney, with lobulated contours and without change in size from the comparison study from 08/09/18. Persistent mild prominence of the left renal collecting system and ureter which crosses the area of maximal postoperative change and inflammation as a transit to the bladder. Peritoneum and bowel: Stomach, small bowel, and colon loops are normal in caliber and wall thickness. No free fluid or air. Nodes and vessels: No retroperitoneal or mesenteric adenopathy. Aorta and inferior vena cava are normal in caliber. Miscellaneous: No ventral hernias. PELVIS: Genitourinary: Bladder wall thickness is normal. Miscellaneous: No inguinal hernias or definite residual adenopathy. The large abscess deep within the posterior lower pelvis has decreased significantly in volume, to only approximately 1/3 of its prior volume, and confluent soft tissue inflammatory change could obscure visualization of several areas of minor adenopathy in the pelvis. Bones: No suspicious bony lesions. No vertebral body compression fractures. IMPRESSION: 1. Stable appearance of a left malignant appearing renal mass previously documented, with an appearance considered much more likely to represent a coincidental primary renal cell carcinoma then metastatic disease. 2. Extensive postsurgical change within the pelvis, previously identified adenopathy/peritoneal masses can no longer be seen as discrete entities. There is, however, postoperative and postinflammatory change that could obscure discrete visualization of mild adenopathy in the posterior lower pelvis along the common and external iliac node chains (right greater than left). Continued followup is recommended. Mild residual hydronephrosis and hydroureter on the left. 3. A large postoperative pelvic abscess has prominently improved in appearance, with at least two thirds volume reduction when compared to CT scanning 09/24/18. Dictated by: Flynn Robbins M.D. on 10/06/2018 at 16:40 Approved by: Flynn Robbins M.D. on 10/06/2018 at 16:55
== END ==
PROVIDERS: Family Provider Internal Medicine; PCP Internal Medicine; Visit Provider Internal Medicine
DX: K65.1 Peritoneal abscess (principal); N28.89 Other specified disorders of kidney and ureter; N13.30 Unspecified hydronephrosis
CPT/HCPCS: 74177; Q9967

== ENCOUNTER 2018-10-28 11:17 | Emergency (ER) | payer MEDICARE, OTHER, SELFPAY ==
[2018-10-28 11:24] VITALS: BP 157/95; PULSE 92; RESP 19; TEMP 36.6; O2SAT 97
--- NOTE | 2018-10-28 12:17 | ED.SKABFB ---
HPI - Skin/Abscess/Foreign Bdy <Chanda Mcknightmer, RETAIL LOSS PREVENTION INVESTIGATOR-BC - Last Filed: 10/28/18 15:28> General Chief complaint: Skin/Abscess/Foreign Body Stated complaint: Hole in stomach/post surgery dorina Time Seen by Provider: 10/28/18 12:04 Source: patient Mode of arrival: ambulatory Limitations: no limitations History of Present Illness HPI narrative: Patient is a 68-year-old female nonsmoker presents by herself for chief complaint of wound on her abdomen. She has a long history including carcinoma, and had surgery done at [facility] several months ago for colostomy. She noted on Thursday some redness on her abdomen. She saw her primary care who placed her on Keflex yesterday. She has had 5 doses of her Keflex. She noticed a decrease in redness, but now notes a wound. She states it is a small wound on her abdomen by the redness. She denies any issues with colostomy. She denies any nausea vomiting diarrhea or fever. She denies any pain at this point time. Related Data Home Medications Medication Instructions Recorded Confirmed albuterol sulfate [Ventolin HFA] 2 puff INHALATION Q4H PRN 06/23/18 10/28/18 cetirizine [Allergy Relief 10 mg PO QPM 06/23/18 10/28/18 (cetirizine)] acetaminophen 500 mg PO Q6H PRN 09/24/18 10/28/18 ibuprofen 1 dose PO PRN PRN 09/24/18 10/28/18 sertraline 100 mg PO DAILY 09/24/18 10/28/18 hydromorphone 4 mg PO Q4-6H PRN 10/14/18 10/28/18 cephalexin 500 mg PO Q6H 10/28/18 10/28/18 fluticasone propionate [Flovent 1 puff INHALATION BID 10/28/18 10/28/18 HFA] oxycodone 5 - 10 mg PO Q3H PRN 10/28/18 10/28/18 Allergies Allergy/AdvReac Type Severity Reaction Status Date / Time venlafaxine [From Effexor] AdvReac Intermediate Difficulty Verified 06/23/18 14:57 Breathing bupropion AdvReac Unknown Anxiety Verified 06/23/18 14:57 escitalopram [From Lexapro] AdvReac Unknown Verified 06/23/18 14:54 fluoxetine AdvReac Unknown Verified 06/23/18 14:57 mirtazapine AdvReac Unknown Verified 06/23/18 14:56 Review of Systems <DAIANA Manzo - Last Filed: 10/28/18 15:28> Review of Systems GENERAL: Denies chills, fatigue, malaise, fever, sweats. HEENT: Denies sinus pain, ear pain, sore throat, difficulty swallowing, dizziness. RESPIRATORY: Denies dyspnea, cough, wheezing, hemoptysis, sputum. CARDIOVASCULAR: Denies chest pain, palpitations, orthopnea, edema, GASTROINTESTINAL: Denies nausea, vomiting, abdominal pain, diarrhea, constipation, melena. : Denies dysuria, frequency, incontinence, hematuria, urinary retention. MUSCULOSKELETAL: denies weakness, joint pain, or bony pain SKIN: See HPI NEUROLOGIC: Denies weakness, headache, numbness, change in speech, confusion, seizures, incoordination. PSYCHIATRIC: No concerning psychosocial issues. 12 point review of systems is negative except for those stated above PFSH <DAIANA Manzo - Last Filed: 10/28/18 15:28> Medical History (Updated 10/28/18 @ 14:51 by DAIANA Manzo) Ovarian cancer (Acute) Asthma (Acute) Renal cell carcinoma (Acute) Tubal ligation evaluation (Acute) Surgical History (Updated 10/14/18 @ 16:57 by Irina Perla MD) H/O breast biopsy (Acute) Social History (Updated 09/24/18 @ 15:50 by Chanda Lai DO) marital status: Smoking Status: Never smoker alcohol intake: never substance use type: does not use Social History (Updated 09/24/18 @ 15:50 by Chanda Lai DO) marital status: Smoking Status: Never smoker alcohol intake: never substance use type: does not use Exam <DAIANA Manzo - Last Filed: 10/28/18 15:28> Narrative Exam Narrative: GENERAL: Chronically ill appearing elderly female lying on stretcher HEAD: Atraumatic. Normocephalic. No temporal or scalp tenderness. EYES: Pupils equal round and reactive. Extraocular motions intact. No scleral icterus. No injection or drainage. ENT: Nose without bleeding, purulent drainage or septal hematoma. Throat without erythema, tonsillar hypertrophy or exudate. Uvula midline. Airway patent. NECK: Trachea midline. No JVD or lymphadenopathy. Supple, nontender, no meningeal signs. CARDIOVASCULAR: Regular rate and rhythm without murmurs, gallops, or rubs. RESPIRATORY: Clear to auscultation. Breath sounds equal bilaterally. No wheezes, rales, or rhonchi. No cough. No increased respiratory effort. GASTROINTESTINAL: Abdomen soft, non-tender, nondistended. No hepato-splenomegaly, or palpable masses. No guarding. colostomy in place. Active bowel sounds. erythema is noted in skin exam. EXTREMITIES: No clubbing, cyanosis, or edema. No joint tenderness, effusion, or edema noted. BACK: Nontender without deformity or crepitance. No flank tenderness. NEURO: AOx3. SKIN: 0.3 cm wound noted medial to colostomy. 2 mm deep. 4 cm surrounding erythema noted. wound is draining serosanguineous drainage. erythema surrounded by marker, which is 2 cm smaller than the day previous. Initial Vital Signs Initial Vital Signs: Vital Signs Temperature 97.8 F 10/28/18 11:24 Pulse Rate 92 H 10/28/18 11:24 Respiratory Rate 10/28/18 11:24 Blood Pressure 157/95 H 10/28/18 11:24 Pulse Oximetry 97 10/28/18 11:24 <Tara Lai DO - Last Filed: 10/31/18 18:50> Initial Vital Signs Initial Vital Signs: Vital Signs Temperature 97.8 F 10/28/18 11:24 Pulse Rate 92 H 10/28/18 11:24 Respiratory Rate 10/28/18 11:24 Blood Pressure 157/95 H 10/28/18 11:24 Pulse Oximetry 97 10/28/18 11:24 Course <ROXANNE ManzoBC - Last Filed: 10/28/18 15:28> Orders Ordered: ED Orders 10/28/18 12:22 CT abdomen pelvis w con Stat 10/28/18 12:40 Complete Blood Count AUTO DIFF Stat Comprehensive Metabolic Panel Stat Wound Culture and Gram Stain Stat Vital Signs - 8 hr 10/28/18 11:24 10/28/18 14:23 10/28/18 15:17 Temperature 97.8 F 98.2 F 98.0 F Pulse Rate 92 H 84 90 Respiratory Rate 19 18 16 Blood Pressure 157/95 H Blood Pressure [Left Arm] 141/87 H 146/85 H Pulse Oximetry 97 97 97 <Tara Lai DO - Last Filed: 10/31/18 18:50> Orders Ordered: ED Orders 10/28/18 12:22 CT abdomen pelvis w con Stat 10/28/18 12:40 Complete Blood Count AUTO DIFF Stat Comprehensive Metabolic Panel Stat Wound Culture and Gram Stain Stat Vital Signs - 8 hr 10/28/18 11:24 10/28/18 14:23 10/28/18 15:17 Temperature 97.8 F 98.2 F 98.0 F Pulse Rate 92 H 84 90 Respiratory Rate 19 18 16 Blood Pressure 157/95 H Blood Pressure [Left Arm] 141/87 H 146/85 H Pulse Oximetry 97 97 97 MDM - Skin/Abscess/Foreign Bdy <MATILDA Manzo-BC - Last Filed: 10/28/18 15:28> Lab Data Result diagrams: 10/28/18 12:40 10/28/18 12:40 Lab Results 10/28/18 10/28/18 Range/Units 12:40 12:40 WBC 6.1 (4.5-11.0) X10^3/uL RBC 3.90 L (4.0-5.2) X10^6/uL Hgb 10.9 L (12.0-16.0) g/dL Hct 33.2 L (36-46) % MCV 84.9 (80-100) fL MCH 27.8 (26-34) PG MCHC 32.8 (30-36) % RDW 18.9 H (11.6-14.8) % Plt Count 283 (150-400) X10^3/uL Neut % (Auto) 46.6 L (50-75) % Lymph % (Auto) 43.5 H (25-40) % Centre % (Auto) 8.1 (3-14) % Eos % (Auto) 1.3 L (2-4) % Baso % (Auto) 0.5 (0-2) % Neut # (Auto) 2800 (6168-6098) /uL Lymph # (Auto) 2600 (9531-7266) /uL Centre # (Auto) 500 (0-900) /uL Eos # (Auto) 100 (0-450) /uL Baso # (Auto) 0 (0-100) /uL Sodium 136 L (137-145) mmol/L Potassium 4.5 (3.4-5.1) mmol/L Chloride 99 (98-107) mmol/L Carbon Dioxide 26 (22-32) mmol/L BUN 16 (7-17) mg/dL Creatinine 0.70 (0.52-1.04) mg/dL Estimated GFR > 60.0 (>60) mL/min BUN/Creatinine Ratio 22.9 H (6-22) Glucose 80 (80-110) mg/dL Calcium 9.6 (8.4-10.2) mg/dL Total Bilirubin 0.2 (0.2-1.3) mg/dL AST 23 (14-36) IU/L ALT 20 (9-52) IU/L Alkaline Phosphatase 67 (38-126) U/L Total Protein 7.8 (6.3-8.2) g/dL Albumin 4.3 (3.5-5.0) g/dL Globulin 3.5 (1.7-4.1) g/dL Albumin/Globulin Ratio 1.2 (1.0-2.8) Imaging Data CT scan - abdomen: Radiologist's impression: [place] [address] CT Scan Report Signed Patient: Paz Garcia [facility]#: [id number] : 1Acct:[id number] Age/Sex: 68 / FDate of Service: 10/28/18 Loc: ED Accession Number: [id number] Procedure: CT abdomen pelvis w con Ordering Provider: Chanda Verde PROCEDURE: CT ABDOMEN PELVIS W CON INDICATIONS: hx abd surg, wound, concern for fistula vs abscess TECHNIQUE: After the administration of oral and intravenous contrast, 5 mm thick sections acquired from the diaphragms to the symphysis. 5 mm thick coronal and sagittal reformats were performed. For radiation dose reduction, the following was used: automated exposure control, adjustment of mA and/or kV according to patient size. COMPARISON: [facility], CT, CT ABDOMEN PELVIS W CON, 10/06/2018, 11:04. FINDINGS: Image quality: Excellent. ABDOMEN: Lung bases: Lung bases are clear. Heart size is normal. Solid organs: Liver is normal in size and enhancement. Hepatic steatosis is present. Gallbladder is unremarkable. Biliary system is non-dilated. Pancreas enhances normally. Spleen is normal in size and enhancement. No adrenal nodules. As identified on prior exam, heterogeneously enhancing left renal mass is present, unchanged. There has been interval decrease in size of prominence of the left renal collecting system. Peritoneum and bowel: Stomach, small bowel, and colon loops are normal in caliber and wall thickness. No free fluid or air. Left lower ostomy site is present. Nodes and vessels: No retroperitoneal or mesenteric adenopathy. Aorta and inferior vena cava are normal in caliber. Miscellaneous: No ventral hernias. Interval decreased size of pelvic abscess measuring 37 mm AP x 40 mm transverse with central fluid collection measuring 18 mm AP x 15 mm transverse. This is compared to 61 mm AP x 55 mm transverse with central fluid measuring 54 m AP x 38 mm transverse. PELVIS: Genitourinary: Bladder wall thickness is normal. Miscellaneous: No inguinal hernias or adenopathy. Bones: No suspicious bony lesions. No vertebral body compression fractures. IMPRESSION: 1. Continued interval decrease in size of previously identified pelvic abscess. 2. Unchanged appearance of heterogeneously enhancing left renal mass most likely renal cell neoplasm. 3. Interval decrease in prominence of previously dilated left renal collecting system. Dictated by: Prisca Ambrose M.D. on 10/28/2018 at 14:17 Approved by: Prisca Ambrose M.D. on 10/28/2018 at 14:29 MDM Narrative Medical decision making narrative: The patient is a 68-year-old female who presents with concern for wound near her colostomy. She is afebrile and hemodynamically stable. The erythema is responding well to Keflex and CT scan shows a decreasing abdominal abscess. She has no systemic signs of infection and is afebrile emergency department. A wound culture was taken from the drainage. Thus I discussed continuing the Keflex and following up with her primary care provider. I discussed at length return precautions including fever vomiting or diarrhea. The patient has no questions or concerns upon discharge. <Tara Lai, DO - Last Filed: 10/31/18 18:50> Lab Data Lab Results 10/28/18 10/28/18 Range/Units 12:40 12:40 WBC 6.1 (4.5-11.0) X10^3/uL RBC 3.90 L (4.0-5.2) X10^6/uL Hgb 10.9 L (12.0-16.0) g/dL Hct 33.2 L (36-46) % MCV 84.9 (80-100) fL MCH 27.8 (26-34) PG MCHC 32.8 (30-36) % RDW 18.9 H (11.6-14.8) % Plt Count 283 (150-400) X10^3/uL Neut % (Auto) 46.6 L (50-75) % Lymph % (Auto) 43.5 H (25-40) % Centre % (Auto) 8.1 (3-14) % Eos % (Auto) 1.3 L (2-4) % Baso % (Auto) 0.5 (0-2) % Neut # (Auto) 2800 (4342-2503) /uL Lymph # (Auto) 2600 (8420-1682) /uL Centre # (Auto) 500 (0-900) /uL Eos # (Auto) 100 (0-450) /uL Baso # (Auto) 0 (0-100) /uL Sodium 136 L (137-145) mmol/L Potassium 4.5 (3.4-5.1) mmol/L Chloride 99 (98-107) mmol/L Carbon Dioxide 26 (22-32) mmol/L BUN 16 (7-17) mg/dL Creatinine 0.70 (0.52-1.04) mg/dL Estimated GFR > 60.0 (>60) mL/min BUN/Creatinine Ratio 22.9 H (6-22) Glucose 80 (80-110) mg/dL Calcium 9.6 (8.4-10.2) mg/dL Total Bilirubin 0.2 (0.2-1.3) mg/dL AST 23 (14-36) IU/L ALT 20 (9-52) IU/L Alkaline Phosphatase 67 (38-126) U/L Total Protein 7.8 (6.3-8.2) g/dL Albumin 4.3 (3.5-5.0) g/dL Globulin 3.5 (1.7-4.1) g/dL Albumin/Globulin Ratio 1.2 (1.0-2.8) Discharge Plan Departure Patient Disposition: Home Clinical Impression: Wound abscess Cellulitis Qualifiers: Site of cellulitis: trunk Site of cellulitis of trunk: abdominal wall Qualified Code(s): L03.311 - Cellulitis of abdominal wall Discharge Date/Time: 10/28/18 15:18 Interventions: ED Discharge Assessment Last Done: 10/28/18 15:18 Activity Restrictions/Additional Instructions: Your CT scan shows that your abscess is getting smaller. Please continue the Keflex. Your wound culture should be back in 2-3 days, which could direct antibiotic therapy if needed. Monitor for fever vomiting diarrhea or acute concerns and be evaluated for any acute concerns. Please follow up with your primary care provider in the next few days. Prescriptions: No Action sertraline 100 mg tablet 100 mg PO DAILY RF: 0 ibuprofen 200 mg Tablet 1 dose PO PRN PRN (Reason: pain) RF: 0 acetaminophen 500 mg Capsule 500 mg PO Q6H PRN (Reason: PAIN) RF: 0 cetirizine [Allergy Relief (cetirizine)] 10 mg Tablet 10 mg PO QPM RF: 0 albuterol sulfate [Ventolin HFA] 90 mcg/actuation Hfa Aerosol Inhaler 2 puff INHALATION Q4H PRN (Reason: Shortness Of Breath) RF: 0 hydromorphone 4 mg Tablet 4 mg PO Q4-6H PRN (Reason: Pain (Scale Score 4-6)) RF: 0 cephalexin 500 mg capsule 500 mg PO Q6H RF: 0 Flovent HFA 110 mcg/actuation HFA aerosol inhaler 1 puff Inhalation BID RF: 0 oxycodone 5 mg tablet 5 - 10 mg PO Q3H PRN (Reason: pain) RF: 0 Referrals: Niraj Cantu MD [Primary Care Provider] - <Tara Lai DO - Last Filed: 10/31/18 18:50> Cosign ED Attending Britniature Attestation: I was immediately available in the department for consultation. Documentation has been reviewed. I agree with assessment and plan.
--- NOTE | 2018-10-28 12:22 | ED_ITS ---
HPI - Skin/Abscess/Foreign Bdy <Chanda Mcknightmer, LASER ENGRAVER-BC - Last Filed: 10/28/18 15:28> General Chief complaint: Skin/Abscess/Foreign Body Stated complaint: Hole in stomach/post surgery dorina Time Seen by Provider: 10/28/18 12:04 Source: patient Mode of arrival: ambulatory Limitations: no limitations History of Present Illness HPI narrative: Patient is a 68-year-old female nonsmoker presents by herself for chief complaint of wound on her abdomen. She has a long history including carcinoma, and had surgery done at [facility] several months ago for colostomy. She noted on Thursday some redness on her abdomen. She saw her primary care who placed her on Keflex yesterday. She has had 5 doses of her Keflex. She noticed a decrease in redness, but now notes a wound. She states it is a small wound on her abdomen by the redness. She denies any issues with colostomy. She denies any nausea vomiting diarrhea or fever. She denies any pain at this point time. Related Data Home Medications Medication Instructions Recorded Confirmed albuterol sulfate [Ventolin HFA] 2 puff INHALATION Q4H PRN 06/23/18 10/28/18 cetirizine [Allergy Relief 10 mg PO QPM 06/23/18 10/28/18 (cetirizine)] acetaminophen 500 mg PO Q6H PRN 09/24/18 10/28/18 ibuprofen 1 dose PO PRN PRN 09/24/18 10/28/18 sertraline 100 mg PO DAILY 09/24/18 10/28/18 hydromorphone 4 mg PO Q4-6H PRN 10/14/18 10/28/18 cephalexin 500 mg PO Q6H 10/28/18 10/28/18 fluticasone propionate [Flovent 1 puff INHALATION BID 10/28/18 10/28/18 HFA] oxycodone 5 - 10 mg PO Q3H PRN 10/28/18 10/28/18 Allergies Allergy/AdvReac Type Severity Reaction Status Date / Time venlafaxine [From Effexor] AdvReac Intermediate Difficulty Verified 06/23/18 14:57 Breathing bupropion AdvReac Unknown Anxiety Verified 06/23/18 14:57 escitalopram [From Lexapro] AdvReac Unknown Verified 06/23/18 14:54 fluoxetine AdvReac Unknown Verified 06/23/18 14:57 mirtazapine AdvReac Unknown Verified 06/23/18 14:56 Review of Systems <DAIANA Manzo - Last Filed: 10/28/18 15:28> Review of Systems GENERAL: Denies chills, fatigue, malaise, fever, sweats. HEENT: Denies sinus pain, ear pain, sore throat, difficulty swallowing, dizziness. RESPIRATORY: Denies dyspnea, cough, wheezing, hemoptysis, sputum. CARDIOVASCULAR: Denies chest pain, palpitations, orthopnea, edema, GASTROINTESTINAL: Denies nausea, vomiting, abdominal pain, diarrhea, constipation, melena. : Denies dysuria, frequency, incontinence, hematuria, urinary retention. MUSCULOSKELETAL: denies weakness, joint pain, or bony pain SKIN: See HPI NEUROLOGIC: Denies weakness, headache, numbness, change in speech, confusion, seizures, incoordination. PSYCHIATRIC: No concerning psychosocial issues. 12 point review of systems is negative except for those stated above PFSH <DAIANA Manzo - Last Filed: 10/28/18 15:28> Medical History (Updated 10/28/18 @ 14:51 by DAIANA Manzo) Ovarian cancer (Acute) Asthma (Acute) Renal cell carcinoma (Acute) Tubal ligation evaluation (Acute) Surgical History (Updated 10/14/18 @ 16:57 by Irina Perla MD) H/O breast biopsy (Acute) Social History (Updated 09/24/18 @ 15:50 by Chanda Lai DO) marital status: Smoking Status: Never smoker alcohol intake: never substance use type: does not use Social History (Updated 09/24/18 @ 15:50 by Chanda Lai DO) marital status: Smoking Status: Never smoker alcohol intake: never substance use type: does not use Exam <DAIANA Manzo - Last Filed: 10/28/18 15:28> Narrative Exam Narrative: GENERAL: Chronically ill appearing elderly female lying on stretcher HEAD: Atraumatic. Normocephalic. No temporal or scalp tenderness. EYES: Pupils equal round and reactive. Extraocular motions intact. No scleral icterus. No injection or drainage. ENT: Nose without bleeding, purulent drainage or septal hematoma. Throat without erythema, tonsillar hypertrophy or exudate. Uvula midline. Airway patent. NECK: Trachea midline. No JVD or lymphadenopathy. Supple, nontender, no meningeal signs. CARDIOVASCULAR: Regular rate and rhythm without murmurs, gallops, or rubs. RESPIRATORY: Clear to auscultation. Breath sounds equal bilaterally. No wheezes, rales, or rhonchi. No cough. No increased respiratory effort. GASTROINTESTINAL: Abdomen soft, non-tender, nondistended. No hepato- splenomegaly, or palpable masses. No guarding. colostomy in place. Active bowel sounds. erythema is noted in skin exam. EXTREMITIES: No clubbing, cyanosis, or edema. No joint tenderness, effusion, or edema noted. BACK: Nontender without deformity or crepitance. No flank tenderness. NEURO: AOx3. SKIN: 0.3 cm wound noted medial to colostomy. 2 mm deep. 4 cm surrounding erythema noted. wound is draining serosanguineous drainage. erythema surrounded by marker, which is 2 cm smaller than the day previous. Initial Vital Signs Initial Vital Signs: Vital Signs Temperature 97.8 F 10/28/18 11:24 Pulse Rate 92 H 10/28/18 11:24 Respiratory Rate 10/28/18 11:24 Blood Pressure 157/95 H 10/28/18 11:24 Pulse Oximetry 97 10/28/18 11:24 <Tara Lai DO - Last Filed: 10/31/18 18:50> Initial Vital Signs Initial Vital Signs: Vital Signs Temperature 97.8 F 10/28/18 11:24 Pulse Rate 92 H 10/28/18 11:24 Respiratory Rate 10/28/18 11:24 Blood Pressure 157/95 H 10/28/18 11:24 Pulse Oximetry 97 10/28/18 11:24 Course <ROXANNE ManzoBC - Last Filed: 10/28/18 15:28> Orders Ordered: ED Orders 10/28/18 12:22 CT abdomen pelvis w con Stat 10/28/18 12:40 Complete Blood Count AUTO DIFF Stat Comprehensive Metabolic Panel Stat Wound Culture and Gram Stain Stat Vital Signs - 8 hr 10/28/18 11:24 10/28/18 14:23 10/28/18 15:17 Temperature 97.8 F 98.2 F 98.0 F Pulse Rate 92 H 84 90 Respiratory Rate 19 18 16 Blood Pressure 157/95 H Blood Pressure [Left Arm] 141/87 H 146/85 H Pulse Oximetry 97 97 97 <Tara Lai DO - Last Filed: 10/31/18 18:50> Orders Ordered: ED Orders 10/28/18 12:22 CT abdomen pelvis w con Stat 10/28/18 12:40 Complete Blood Count AUTO DIFF Stat Comprehensive Metabolic Panel Stat Wound Culture and Gram Stain Stat Vital Signs - 8 hr 10/28/18 11:24 10/28/18 14:23 10/28/18 15:17 Temperature 97.8 F 98.2 F 98.0 F Pulse Rate 92 H 84 90 Respiratory Rate 19 18 16 Blood Pressure 157/95 H Blood Pressure [Left Arm] 141/87 H 146/85 H Pulse Oximetry 97 97 97 MDM - Skin/Abscess/Foreign Bdy <MATILDA Manzo-BC - Last Filed: 10/28/18 15:28> Lab Data Result diagrams: 10/28/18 12:40 10/28/18 12:40 Lab Results 10/28/18 10/28/18 Range/Units 12:40 12:40 WBC 6.1 (4.5-11.0) X10^3/uL RBC 3.90 L (4.0-5.2) X10^6/uL Hgb 10.9 L (12.0-16.0) g/dL Hct 33.2 L (36-46) % MCV 84.9 (80-100) fL MCH 27.8 (26-34) PG MCHC 32.8 (30-36) % RDW 18.9 H (11.6-14.8) % Plt Count 283 (150-400) X10^3/uL Neut % (Auto) 46.6 L (50-75) % Lymph % (Auto) 43.5 H (25-40) % Norton % (Auto) 8.1 (3-14) % Eos % (Auto) 1.3 L (2-4) % Baso % (Auto) 0.5 (0-2) % Neut # (Auto) 2800 (3506-0758) /uL Lymph # (Auto) 2600 (9842-1010) /uL Norton # (Auto) 500 (0-900) /uL Eos # (Auto) 100 (0-450) /uL Baso # (Auto) 0 (0-100) /uL Sodium 136 L (137-145) mmol/L Potassium 4.5 (3.4-5.1) mmol/L Chloride 99 (98-107) mmol/L Carbon Dioxide 26 (22-32) mmol/L BUN 16 (7-17) mg/dL Creatinine 0.70 (0.52-1.04) mg/dL Estimated GFR > 60.0 (>60) mL/min BUN/Creatinine Ratio 22.9 H (6-22) Glucose 80 (80-110) mg/dL Calcium 9.6 (8.4-10.2) mg/dL Total Bilirubin 0.2 (0.2-1.3) mg/dL AST 23 (14-36) IU/L ALT 20 (9-52) IU/L Alkaline Phosphatase 67 (38-126) U/L Total Protein 7.8 (6.3-8.2) g/dL Albumin 4.3 (3.5-5.0) g/dL Globulin 3.5 (1.7-4.1) g/dL Albumin/Globulin Ratio 1.2 (1.0-2.8) Imaging Data CT scan - abdomen: Radiologist's impression: [place] [address] CT Scan Report Signed Patient: Paz Garcia [facility]#: [id number] : 1Acct:[id number] Age/Sex: 68 / FDate of Service: 10/28/18 Loc: ED Accession Number: [id number] Procedure: CT abdomen pelvis w con Ordering Provider: Chanda Verde PROCEDURE: CT ABDOMEN PELVIS W CON INDICATIONS: hx abd surg, wound, concern for fistula vs abscess TECHNIQUE: After the administration of oral and intravenous contrast, 5 mm thick sections acquired from the diaphragms to the symphysis. 5 mm thick coronal and sagittal reformats were performed. For radiation dose reduction, the following was used: automated exposure control, adjustment of mA and/or kV according to patient size. COMPARISON: [facility], CT, CT ABDOMEN PELVIS W CON, 10/06/2018, 11:04. FINDINGS: Image quality: Excellent. ABDOMEN: Lung bases: Lung bases are clear. Heart size is normal. Solid organs: Liver is normal in size and enhancement. Hepatic steatosis is present. Gallbladder is unremarkable. Biliary system is non-dilated. Pancreas enhances normally. Spleen is normal in size and enhancement. No adrenal nodules. As identified on prior exam, heterogeneously enhancing left renal mass is present, unchanged. There has been interval decrease in size of prominence of the left renal collecting system. Peritoneum and bowel: Stomach, small bowel, and colon loops are normal in caliber and wall thickness. No free fluid or air. Left lower ostomy site is present. Nodes and vessels: No retroperitoneal or mesenteric adenopathy. Aorta and inferior vena cava are normal in caliber. Miscellaneous: No ventral hernias. Interval decreased size of pelvic abscess measuring 37 mm AP x 40 mm transverse with central fluid collection measuring 18 mm AP x 15 mm transverse. This is compared to 61 mm AP x 55 mm transverse with central fluid measuring 54 m AP x 38 mm transverse. PELVIS: Genitourinary: Bladder wall thickness is normal. Miscellaneous: No inguinal hernias or adenopathy. Bones: No suspicious bony lesions. No vertebral body compression fractures. IMPRESSION: 1. Continued interval decrease in size of previously identified pelvic abscess. 2. Unchanged appearance of heterogeneously enhancing left renal mass most likely renal cell neoplasm. 3. Interval decrease in prominence of previously dilated left renal collecting system. Dictated by: Prisca Ambrose M.D. on 10/28/2018 at 14:17 Approved by: Prisca Ambrose M.D. on 10/28/2018 at 14:29 MDM Narrative Medical decision making narrative: The patient is a 68-year-old female who presents with concern for wound near her colostomy. She is afebrile and hemodynamically stable. The erythema is responding well to Keflex and CT scan shows a decreasing abdominal abscess. She has no systemic signs of infection and is afebrile emergency department. A wound culture was taken from the drainage. Thus I discussed continuing the Keflex and following up with her primary care provider. I discussed at length return precautions including fever vomiting or diarrhea. The patient has no questions or concerns upon discharge. <Tara Lai, DO - Last Filed: 10/31/18 18:50> Lab Data Lab Results 10/28/18 10/28/18 Range/Units 12:40 12:40 WBC 6.1 (4.5-11.0) X10^3/uL RBC 3.90 L (4.0-5.2) X10^6/uL Hgb 10.9 L (12.0-16.0) g/dL Hct 33.2 L (36-46) % MCV 84.9 (80-100) fL MCH 27.8 (26-34) PG MCHC 32.8 (30-36) % RDW 18.9 H (11.6-14.8) % Plt Count 283 (150-400) X10^3/uL Neut % (Auto) 46.6 L (50-75) % Lymph % (Auto) 43.5 H (25-40) % Norton % (Auto) 8.1 (3-14) % Eos % (Auto) 1.3 L (2-4) % Baso % (Auto) 0.5 (0-2) % Neut # (Auto) 2800 (0893-7769) /uL Lymph # (Auto) 2600 (7829-1160) /uL Norton # (Auto) 500 (0-900) /uL Eos # (Auto) 100 (0-450) /uL Baso # (Auto) 0 (0-100) /uL Sodium 136 L (137-145) mmol/L Potassium 4.5 (3.4-5.1) mmol/L Chloride 99 (98-107) mmol/L Carbon Dioxide 26 (22-32) mmol/L BUN 16 (7-17) mg/dL Creatinine 0.70 (0.52-1.04) mg/dL Estimated GFR > 60.0 (>60) mL/min BUN/Creatinine Ratio 22.9 H (6-22) Glucose 80 (80-110) mg/dL Calcium 9.6 (8.4-10.2) mg/dL Total Bilirubin 0.2 (0.2-1.3) mg/dL AST 23 (14-36) IU/L ALT 20 (9-52) IU/L Alkaline Phosphatase 67 (38-126) U/L Total Protein 7.8 (6.3-8.2) g/dL Albumin 4.3 (3.5-5.0) g/dL Globulin 3.5 (1.7-4.1) g/dL Albumin/Globulin Ratio 1.2 (1.0-2.8) Discharge Plan Departure Patient Disposition: Home Clinical Impression: Wound abscess Cellulitis Qualifiers: Site of cellulitis: trunk Site of cellulitis of trunk: abdominal wall Qualified Code(s): L03.311 - Cellulitis of abdominal wall Discharge Date/Time: 10/28/18 15:18 Interventions: ED Discharge Assessment Last Done: 10/28/18 15:18 Activity Restrictions/Additional Instructions: Your CT scan shows that your abscess is getting smaller. Please continue the Keflex. Your wound culture should be back in 2-3 days, which could direct antibiotic therapy if needed. Monitor for fever vomiting diarrhea or acute concerns and be evaluated for any acute concerns. Please follow up with your primary care provider in the next few days. Prescriptions: No Action sertraline 100 mg tablet 100 mg PO DAILY RF: 0 ibuprofen 200 mg Tablet 1 dose PO PRN PRN (Reason: pain) RF: 0 acetaminophen 500 mg Capsule 500 mg PO Q6H PRN (Reason: PAIN) RF: 0 cetirizine [Allergy Relief (cetirizine)] 10 mg Tablet 10 mg PO QPM RF: 0 albuterol sulfate [Ventolin HFA] 90 mcg/actuation Hfa Aerosol Inhaler 2 puff INHALATION Q4H PRN (Reason: Shortness Of Breath) RF: 0 hydromorphone 4 mg Tablet 4 mg PO Q4-6H PRN (Reason: Pain (Scale Score 4-6)) RF: 0 cephalexin 500 mg capsule 500 mg PO Q6H RF: 0 Flovent HFA 110 mcg/actuation HFA aerosol inhaler 1 puff Inhalation BID RF: 0 oxycodone 5 mg tablet 5 - 10 mg PO Q3H PRN (Reason: pain) RF: 0 Referrals: Niraj Cantu MD [Primary Care Provider] - <Tara Lai DO - Last Filed: 10/31/18 18:50> Cosign ED Attending Britniature Attestation: I was immediately available in the department for consultation. Documentation has been reviewed. I agree with assessment and plan.
[2018-10-28 12:55] LABS: Add Manual Diff / Slide Review NO; Basophils Absolute Auto 0 /uL (0-100); Basophils Percent Auto 0.5 % (0-2); Eosinophils Absolute Auto 100 /uL (0-450); Eosinophils Percent Auto 1.3 % (2-4); Hematocrit 33.2 % (36-46); Hemoglobin 10.9 g/dL (12.0-16.0); Lymphocytes Absolute Auto 2600 /uL (1100-4500); Lymphocytes Percent Auto 43.5 % (25-40); Mean Corpuscular HGB Conc 32.8 % (30-36); Mean Corpuscular Hemoglobin 27.8 PG (26-34); Mean Corpuscular Volume 84.9 fL (80-100); Monocytes Absolute Auto 500 /uL (0-900); Monocytes Percent Auto 8.1 % (3-14); Neutrophils Absolute Auto 2800 /uL (1500-7000); Neutrophils Percent Auto 46.6 % (50-75); Platelet Count 283 X10^3/uL (150-400); Red Cell Distribution Width 18.9 % (11.6-14.8); White Blood Cell Count 6.1 X10^3/uL (4.5-11.0)
[2018-10-28 13:06] LABS: Alanine Aminotransferase 20 IU/L (9-52); Albumin 4.3 g/dL (3.5-5.0); Albumin Globulin Ratio 1.2 (1.0-2.8); Alkaline Phosphatase 67 U/L (38-126); Aspartate Aminotransferase 23 IU/L (14-36); BUN Creatinine Ratio 22.9 (6-22); Bilirubin Total 0.2 mg/dL (0.2-1.3); Blood Urea Nitrogen 16 mg/dL (7-17); Calcium 9.6 mg/dL (8.4-10.2); Carbon Dioxide 26 mmol/L (22-32); Chloride 99 mmol/L (98-107); Estimated Glomerular Filt Rate > 60.0 mL/min (>60); Globulin 3.5 g/dL (1.7-4.1); Glucose 80 mg/dL (80-110); HEMOLYSIS < 15 (0-50); Potassium 4.5 mmol/L (3.4-5.1); Sodium 136 mmol/L (137-145); Total Protein 7.8 g/dL (6.3-8.2)
[2018-10-28 14:23] VITALS: BP 141/87; PULSE 84; RESP 18; TEMP 36.8; O2SAT 97
[2018-10-28 15:17] VITALS: BP 146/85; PULSE 90; RESP 16; TEMP 36.7; O2SAT 97
== END 2018-10-28 15:18 | disposition home or self-care (01) ==
PROVIDERS: Emergency Provider Nurse Practitioner Family; Family Provider Internal Medicine; PCP Internal Medicine
DX: L03.311 Cellulitis of abdominal wall (principal)
CPT/HCPCS: 36591; 74177; 80053; 85025; 87070; 87075; 87077; 87186; 87205; 99282; 99285; Q9967

== ENCOUNTER → 2019-01-19 09:35 | Outpatient (CLI) | payer MEDICARE, OTHER, SELFPAY ==
--- NOTE | 2019-01-19 10:54 | DI.CT.S_ITS ---
PROCEDURE: CT CHEST ABD PEL W CON INDICATIONS: Ovarian cancer post-chemo pre-op evaluation TECHNIQUE: After the administration of oral and intravenous contrast, 5 mm thick sections acquired from the lung apices to the symphysis. 5 mm coronal and sagittal reformats were performed, with additional 7 mm coronal MIP reformats through the lungs. For radiation dose reduction, the following was used: automated exposure control, adjustment of mA and/or kV according to patient size. COMPARISON: [facility], CT, CT ABDOMEN PELVIS W CON, 10/28/2018, 13:52. [facility], CT, CT ABDOMEN PELVIS W CON, 10/06/2018, 11:04. [facility], CT, CT ABDOMEN PELVIS W CON, 09/24/2018, 17:12. [facility], CR, XR CHEST 1V, 09/24/2018, 15:32. [facility], CT, CT ABDOMEN PELVIS W CON, 08/09/2018, 16:42. FINDINGS: Image quality: Excellent. CHEST: Lungs and pleura: No acute airspace opacities. Note is made of a far peripheral right middle lobe lateral segment nodule best seen on series 8 image 144. No pleural effusions or pneumothorax. Central and peripheral airways appear patent and normal in caliber. Mediastinum: Heart size is normal. No pericardial effusion. No mediastinal or hilar adenopathy by size criteria. Thoracic aorta and central pulmonary arteries are normal in size. Esophagus is normal in caliber. No hiatal hernia. Chest wall: No axillary or supraclavicular adenopathy by size criteria. Thyroid gland appears normal where well visualized. ABDOMEN: Solid organs: Liver is normal in size and enhancement. Gallbladder appears normal. Biliary system is non dilated. Pancreas enhances normally. Spleen is normal in size and enhancement. No adrenal nodules. Kidneys demonstrate normal size and enhancement, without hydronephrosis except at the anterior lower left kidney where a malignant appearing mass measures up to 4.0 x 3.7 cm, previously identified, with exophytic adjacent soft tissue nodules but no definite distant or regional metastatic disease is associated.. Peritoneum and bowel: Bowel loops demonstrate normal wall thickness and caliber. No free fluid or air. Nodes and vessels: No retroperitoneal or mesenteric adenopathy by size criteria. Aorta and inferior vena cava are normal in size. Miscellaneous: No ventral hernias. PELVIS: Genitourinary: Bladder wall thickness is normal. Miscellaneous: No inguinal hernias or adenopathy. Ostomy site left lower quadrant. A rectal tube is in place and rectal contrast was utilized extending cephalad to a staple line seen on series 2 image 92 in the presacral space, without evidence of extravasation of this contrast into the adjacent structures such as the vagina or bowel. Bones: No suspicious bony lesions. No vertebral body compression fractures. IMPRESSION: 1. A single pulmonary nodule measuring 4 mm in diameter is seen at the subpleural margin of the right middle lobe lateral segment. No additional prior CT scan covers this area and therefore chronicity is uncertain. 2. Partial bowel resection, hysterectomy. Rectal contrast utilized which does not document presence of a fistula to adjacent structures including the vagina and bowel. 3. Through the abdomen and pelvis no adenopathy or evidence of peritoneal tumor implants are found. Left lower quadrant colostomy. 4. Renal mass lesion at the left kidney inferiorly, exophytic, with an appearance consistent with renal cell carcinoma which does not invade adjacent structures, nor is associated with adenopathy. Dictated by: Flynn Robbins M.D. on 01/19/2019 at 14:12 Approved by: Flynn Robbins M.D. on 01/19/2019 at 14:28
== END ==
PROVIDERS: Family Provider Internal Medicine; PCP Internal Medicine; Referring Provider Obstetrics & Gynecology Gynecologic Oncology; Visit Provider Internal Medicine Hematology & Oncology
DX: C56.9 Malignant neoplasm of unspecified ovary (principal)
CPT/HCPCS: 71260; 74177; Q9967

== ENCOUNTER 2019-03-01 14:38 | Emergency (ER) | payer MEDICARE, OTHER, SELFPAY ==
[2019-03-01 14:55] VITALS: BP 137/80; PULSE 87; RESP 20; TEMP 37.1; O2SAT 100
--- NOTE | 2019-03-01 15:22 | ONC.MSW ---
Description: Updated ER re: pt status Activity: Called the ER to update them that we are aware of pt's presentation there to have her new surgical stoma assessed. Confirmed that we will monitor, f/u with patient tomorrow morning for next steps.
--- NOTE | 2019-03-01 15:29 | ED_ITS ---
HPI - Skin/Abscess/Foreign Bdy General Chief complaint: Skin/Abscess/Foreign Body Stated complaint: new colostomy that needs looked at Time Seen by Provider: 03/01/19 15:11 History of Present Illness HPI narrative: Please see other note from same visit. Related Data Home Medications Medication Instructions Recorded Confirmed albuterol sulfate [Ventolin HFA] 2 puff INHALATION Q4H PRN 06/23/18 03/04/19 acetaminophen 500 mg PO Q6H PRN 09/24/18 03/04/19 sertraline 100 mg PO DAILY 09/24/18 03/04/19 fluticasone propionate [Flovent 1 puff INHALATION BID 10/28/18 03/04/19 HFA] ibuprofen 600 mg PO Q6H PRN 03/01/19 03/04/19 lorazepam 0.25 - 0.5 mg PO TID PRN 03/01/19 03/04/19 melatonin 5 mg PO BEDTIME PRN 03/01/19 03/04/19 oxycodone 5 mg PO PRN PRN 03/01/19 03/04/19 Previous Rx's Medication Instructions Recorded ondansetron HCl [Zofran] 8 mg PO BID-TID PRN #20 tab 12/23/18 Allergies Allergy/AdvReac Type Severity Reaction Status Date / Time venlafaxine [From Effexor] AdvReac Intermediate Difficulty Verified 06/23/18 14:57 Breathing bupropion AdvReac Unknown Anxiety Verified 06/23/18 14:57 escitalopram [From Lexapro] AdvReac Unknown Verified 06/23/18 14:54 fluoxetine AdvReac Unknown Verified 06/23/18 14:57 mirtazapine AdvReac Unknown Verified 06/23/18 14:56 [facility] Surgical History (Updated 01/06/19 @ 10:27 by Irina Perla MD) H/O breast biopsy (Acute) Social History marital status: household members: spouse Smoking Status: Never smoker alcohol intake: never substance use type: does not use Social History marital status: household members: spouse Smoking Status: Never smoker alcohol intake: never substance use type: does not use Exam Initial Vital Signs Initial Vital Signs: Vital Signs Temperature 98.8 F 03/01/19 14:55 Pulse Rate 87 03/01/19 14:55 Respiratory Rate 20 03/01/19 14:55 Blood Pressure 137/80 03/01/19 14:55 Pulse Oximetry 100 03/01/19 14:55 Course Vital Signs - 8 hr 03/01/19 14:55 Temperature 98.8 F Pulse Rate 87 Respiratory Rate 20 Blood Pressure 137/80 Pulse Oximetry 100 Discharge Plan Departure Patient Disposition: Home Clinical Impression: Feared complaint without diagnosis, Colostomy present Discharge Date/Time: 03/01/19 15:42 Interventions: ED Discharge Assessment Last Done: 03/01/19 15:42 Instructions: How to Care for Your Colostomy or Ileostomy, Colostomy / Ileostomy Activity Restrictions/Additional Instructions: *You have been diagnosed with colostomy *What to do: At this time this seems to be appropriate postoperative healing. However continue to monitor it. If there is more sloughing, or drainage you need to be evaluated. *Continue to take medications as directed *Follow up with your primary care provider in 2-3 days, please see your surgeon at the [facility] *Return to ER if you should have increase laughing redness fever drainage or any new, worsening or concerning symptoms Prescriptions: No Action sertraline 100 mg tablet 100 mg PO DAILY RF: 0 acetaminophen 500 mg Capsule 500 mg PO Q6H PRN (Reason: PAIN) RF: 0 ibuprofen 600 mg tablet 600 mg PO Q6H PRN (Reason: pain) RF: 0 lorazepam 0.5 mg tablet 0.25 - 0.5 mg PO TID PRN (Reason: Anxiety) RF: 0 oxycodone 5 mg tablet 5 mg PO PRN PRN (Reason: pain) RF: 0 melatonin 5 mg Tablet 5 mg PO BEDTIME PRN (Reason: Sleep) RF: 0 albuterol sulfate [Ventolin HFA] 90 mcg/actuation Hfa Aerosol Inhaler 2 puff INHALATION Q4H PRN (Reason: Shortness Of Breath) RF: 0 ondansetron HCl [Zofran] 8 mg Tablet 8 mg PO BID-TID PRN (Reason: Nausea) Qty: 20 RF: 3 Flovent HFA 110 mcg/actuation HFA aerosol inhaler 1 puff Inhalation BID RF: 0 Referrals: Niraj Cantu MD [Primary Care Provider] - Ira Capellan MD [Non-Staff] -
--- NOTE | 2019-03-01 15:36 | ED_ITS ---
HPI - Skin/Abscess/Foreign Bdy General Chief complaint: Skin/Abscess/Foreign Body Stated complaint: new colostomy that needs looked at Time Seen by Provider: 03/01/19 15:11 Source: patient Mode of arrival: ambulatory Limitations: no limitations History of Present Illness HPI narrative: Patient is a 68-year-old female who presents postop colostomy 1 week. She has the unfortunate diagnosis of then required rectosigmoid and colostomy at [facility]. 1 week ago they attempted to do a reanastomosis unfortunately there was too much scar tissue so she got up per minute colostomy. She had an infection and a pelvic abscess previously and is worried that the stump itself may be infected. It is draining. She has some mild postoperative abdominal pain but no significant pain. It is draining. Dr. Ira Capellan at [facility] did surgery. Related Data Home Medications Medication Instructions Recorded Confirmed albuterol sulfate [Ventolin HFA] 2 puff INHALATION Q4H PRN 06/23/18 03/01/19 acetaminophen 500 mg PO Q6H PRN 09/24/18 03/01/19 sertraline 100 mg PO DAILY 09/24/18 03/01/19 hydromorphone 4 mg PO Q4-6H PRN 10/14/18 03/01/19 fluticasone propionate [Flovent 1 puff INHALATION BID 10/28/18 03/01/19 HFA] ibuprofen 600 mg PO Q6H PRN 03/01/19 03/01/19 lorazepam 0.25 - 0.5 mg PO TID PRN 03/01/19 03/01/19 melatonin 5 mg PO BEDTIME PRN 03/01/19 03/01/19 oxycodone 5 mg PO PRN PRN 03/01/19 03/01/19 Previous Rx's Medication Instructions Recorded diphenoxylate-atropine [Lomotil] 1 tab PO Q6-8H PRN #30 tab 11/10/18 ondansetron HCl [Zofran] 8 mg PO BID-TID PRN #20 tab 12/23/18 Allergies Allergy/AdvReac Type Severity Reaction Status Date / Time venlafaxine [From Effexor] AdvReac Intermediate Difficulty Verified 06/23/18 14:57 Breathing bupropion AdvReac Unknown Anxiety Verified 06/23/18 14:57 escitalopram [From Lexapro] AdvReac Unknown Verified 06/23/18 14:54 fluoxetine AdvReac Unknown Verified 06/23/18 14:57 mirtazapine AdvReac Unknown Verified 06/23/18 14:56 Review of Systems Review of Systems GENERAL: Denies chills, fatigue, malaise, fever, sweats, travel HEENT: Denies sinus pain, ear pain, sore throat, difficulty swallowing, neck pain RESPIRATORY: Denies dyspnea, cough, wheezing, hemoptysis, sputum. CARDIOVASCULAR: Denies chest pain, palpitations, orthopnea, edema GASTROINTESTINAL: Denies nausea, vomiting, abdominal pain, diarrhea, constipation, melena. : Denies dysuria, frequency, incontinence, hematuria, urinary retention, flank pain. MUSCULOSKELETAL: Denies weakness, joint pain, or bony pain SKIN: See HPI concern for colostomy NEUROLOGIC: Denies weakness, dizziness, headache, numbness, change in speech, confusion PSYCHIATRIC: No concerning psychosocial issues. 12 point review of systems is negative except for those stated above and HPI [facility] Medical History (Updated 03/01/19 @ 15:36 by Tara Lai DO) Ovarian cancer (Acute) Asthma (Acute) Renal cell carcinoma (Acute) Tubal ligation evaluation (Acute) Surgical History (Updated 01/06/19 @ 10:27 by Irina Perla MD) H/O breast biopsy (Acute) Social History (Updated 09/24/18 @ 15:50 by Chanda Lai DO) marital status: Smoking Status: Never smoker alcohol intake: never substance use type: does not use Social History (Updated 09/24/18 @ 15:50 by Chanda Lai DO) marital status: Smoking Status: Never smoker alcohol intake: never substance use type: does not use Exam Initial Vital Signs Initial Vital Signs: Vital Signs Temperature 98.8 F 03/01/19 14:55 Pulse Rate 87 03/01/19 14:55 Respiratory Rate 20 03/01/19 14:55 Blood Pressure 137/80 03/01/19 14:55 Pulse Oximetry 100 03/01/19 14:55 GENERAL: Well-appearing, well-nourished and in no acute distress. CARDIOVASCULAR: peripheral pulses in tact, cap refill <2 sec RESPIRATORY: No respiratory distress, speaks in full sentences without difficulty ABDOMEN: Soft, incision site clean and dry dorina in place no redness swelling or drainage. Colostomy noted. She does have some mild sloughing on the stoma but is draining. No gross discharge. EXTREMITIES: Normal range of motion, no clubbing or edema. Neurovascularly intact NEUROLOGICAL: Cranial nerves II through XII grossly intact. Normal gait and speech. SKIN: Warm, dry, no petechiae, no rashes or lesions. Course Vital Signs - 8 hr 03/01/19 14:55 Temperature 98.8 F Pulse Rate 87 Respiratory Rate 20 Blood Pressure 137/80 Pulse Oximetry 100 MDM - Skin/Abscess/Foreign Bdy MDM Narrative Medical decision making narrative: At this time the area overall does not appear infected. This seems to have normal healing and post surgery appearance. She has follow-up appointment with her surgeon. Discharge Plan Departure Patient Disposition: Home Clinical Impression: Feared complaint without diagnosis, Colostomy present Discharge Date/Time: 03/01/19 15:42 Interventions: ED Discharge Assessment Last Done: 03/01/19 15:42 Instructions: How to Care for Your Colostomy or Ileostomy, Colostomy / Ileostomy Activity Restrictions/Additional Instructions: *You have been diagnosed with colostomy *What to do: At this time this seems to be appropriate postoperative healing. However continue to monitor it. If there is more sloughing, or drainage you need to be evaluated. *Continue to take medications as directed *Follow up with your primary care provider in 2-3 days, please see your surgeon at the [facility] *Return to ER if you should have increase laughing redness fever drainage or any new, worsening or concerning symptoms Prescriptions: No Action sertraline 100 mg tablet 100 mg PO DAILY RF: 0 acetaminophen 500 mg Capsule 500 mg PO Q6H PRN (Reason: PAIN) RF: 0 ibuprofen 600 mg tablet 600 mg PO Q6H PRN (Reason: pain) RF: 0 lorazepam 0.5 mg tablet 0.25 - 0.5 mg PO TID PRN (Reason: Anxiety) RF: 0 oxycodone 5 mg tablet 5 mg PO PRN PRN (Reason: pain) RF: 0 melatonin 5 mg Tablet 5 mg PO BEDTIME PRN (Reason: Sleep) RF: 0 albuterol sulfate [Ventolin HFA] 90 mcg/actuation Hfa Aerosol Inhaler 2 puff INHALATION Q4H PRN (Reason: Shortness Of Breath) RF: 0 hydromorphone 4 mg Tablet 4 mg PO Q4-6H PRN (Reason: Pain (Scale Score 4-6)) RF: 0 diphenoxylate-atropine [Lomotil] 2.5-0.025 mg Tablet 1 tab PO Q6-8H PRN (Reason: Diarrhea) Qty: 30 RF: 1 ondansetron HCl [Zofran] 8 mg Tablet 8 mg PO BID-TID PRN (Reason: Nausea) Qty: 20 RF: 3 Flovent HFA 110 mcg/actuation HFA aerosol inhaler 1 puff Inhalation BID RF: 0 Referrals: Niraj Cantu MD [Primary Care Provider] - Ira Capellan MD [Non-Staff] -
--- NOTE | 2019-03-01 15:40 | PC.NURSE ---
left stoma looks good. granulation tissue starting to form. stoma slightly inflammed from surgery. no fevers. pt is just concerned about the risk of possible infection
== END 2019-03-01 15:42 | disposition home or self-care (01) ==
PROVIDERS: Emergency Provider Emergency Medicine; Family Provider Internal Medicine; PCP Internal Medicine
DX: Z71.1 Person with feared health complaint in whom no diagnosis is made (principal); Z93.3 Colostomy status
CPT/HCPCS: 99282

== ENCOUNTER 2019-03-04 05:12 | Emergency (ER) | payer MEDICARE, OTHER, SELFPAY ==
[2019-03-04] VITALS (15 sets, daily range): BP systolic 140–159; BP diastolic 72–97; PULSE 77–93; RESP 14–18; TEMP 36.6–36.8; O2SAT 95–100; BMI 25.0
--- NOTE | 2019-03-04 05:21 | DI.CT.S_ITS ---
PROCEDURE: CT ABDOMEN PELVIS W CON INDICATIONS: Generalized abdominal pain after bowel resection TECHNIQUE: After the administration of intravenous contrast, 5 mm thick sections acquired from the diaphragms to the symphysis. 5 mm thick coronal and sagittal reformats were performed. For radiation dose reduction, the following was used: automated exposure control, adjustment of mA and/or kV according to patient size. COMPARISON: [facility], CT, CT ABDOMEN PELVIS W CON, 08/09/2018, 16:42. [facility], CT, CT CHEST ABD PEL W CON, 01/19/2019, 10:54. [facility], CT, CT ABDOMEN PELVIS W CON, 10/28/2018, 13:52. FINDINGS: Image quality: Excellent. ABDOMEN: Lung bases: There is a small right pleural effusion with associated compressive atelectasis in the right lower lobe. Additional mild bilateral atelectasis is also noted. Heart size is normal. Solid organs: Evaluation of the liver demonstrates no focal hepatic lesions. The gallbladder appears within normal limits without calcified gallstones. Biliary system is non-dilated. There is a small ovoid cystic lesion within the body of the pancreas measuring approximately 0.9 cm adjacent to the main pancreatic duct redemonstrated likely representing a small sidebranch IPMN. No peripancreatic fat stranding or fluid collections. No pancreatic duct dilatation. The spleen is normal in size. No adrenal nodules. Kidneys demonstrate no hydronephrosis. An exophytic lobulated enhancing left renal mass is redemonstrated, measuring approximately 4.8 x 3.8 cm in transverse dimension, similar in size to the prior studies. This extends to Gerota's fascia anteriorly without evidence of adjacent solid organ invasion. No evidence of renal vein invasion. Peritoneum and bowel: Postsurgical changes are demonstrated status post partial colectomy with a left paracentral ostomy. There is distention of the stomach and proximal small bowel loops with multiple air-fluid levels consistent with a small bowel obstruction. There is a transition point in the mid abdomen centered on series 2 image 51. More distal small bowel loops are nondistended. There is mild wall enhancement of multiple bowel loops in the lower abdomen likely representing reactive changes. There is fat stranding within the abdomen anteriorly along the surgical bed. There is a small amount of intraperitoneal free fluid with peritoneal enhancement. Although there is not definite loculated peripherally enhancing fluid collection, a developing abscess cannot be excluded in the pelvis. No intraperitoneal free air. A rectal stump is nondistended. Nodes and vessels: No retroperitoneal or mesenteric adenopathy. Aorta and inferior vena cava are normal in caliber. Miscellaneous: No ventral hernias. PELVIS: Genitourinary: The urinary bladder is partially distended with mild wall thickening. Miscellaneous: No inguinal hernias or adenopathy. Bones: No suspicious bony lesions. No vertebral body compression fractures. IMPRESSION: 1. Postsurgical changes status post partial colectomy with findings consistent with a small bowel obstruction. Transition point is demonstrated in the mid abdomen as described. 2. Small amount of free fluid in the abdomen and pelvis with peritoneal enhancement and areas of fat stranding compatible with peritonitis. A developing abscess cannot be excluded. 3. Multilobular left renal mass consistent with renal cell carcinoma redemonstrated. No evidence of adjacent solid organ invasion or renal vein invasion. 4. Small hypoattenuating cystic lesion within the pancreatic body likely represents a sidebranch IPMN and appears similar in size to the prior studies. 5. Small subpleural nodule in the right middle lobe appears unchanged compared to the prior study. Findings of small bowel obstruction and renal cell carcinoma are concordant with preliminary interpretation. Dictated by: Nikko Grove M.D. on 03/04/2019 at 10:27 Approved by: Nikko Grove M.D. on 03/04/2019 at 10:44
--- NOTE | 2019-03-04 05:21 | ED.NAVMDI ---
HPI - Nausea/Vomiting/Diarrhea <Arun Cantu DO - Last Filed: 03/04/19 17:58> General Chief complaint: Nausea/Vomiting/Diarrhea Stated complaint: nausea vomiting no BM recent surgery colostomy Time Seen by Provider: 03/04/19 05:13 Source: patient Mode of arrival: ambulatory Limitations: no limitations History of Present Illness HPI Narrative: 68-year-old female who within the past 2 weeks underwent a colon resection with an ostomy placement at [facility]. She comes the emergency department today for having very little output into the ostomy bag over the past 24 hours and almost no output over the past 12 hours. She is also having generalized abdominal pain and vomiting. She is concerned that she may have an obstruction. Related Data Home Medications Medication Instructions Recorded Confirmed albuterol sulfate [Ventolin HFA] 2 puff INHALATION Q4H PRN 06/23/18 03/04/19 acetaminophen 500 mg PO Q6H PRN 09/24/18 03/04/19 sertraline 100 mg PO DAILY 09/24/18 03/04/19 fluticasone propionate [Flovent 1 puff INHALATION BID 10/28/18 03/04/19 HFA] ibuprofen 600 mg PO Q6H PRN 03/01/19 03/04/19 lorazepam 0.25 - 0.5 mg PO TID PRN 03/01/19 03/04/19 melatonin 5 mg PO BEDTIME PRN 03/01/19 03/04/19 oxycodone 5 mg PO PRN PRN 03/01/19 03/04/19 Previous Rx's Medication Instructions Recorded ondansetron HCl [Zofran] 8 mg PO BID-TID PRN #20 tab 12/23/18 Allergies Allergy/AdvReac Type Severity Reaction Status Date / Time venlafaxine [From Effexor] AdvReac Intermediate Difficulty Verified 06/23/18 14:57 Breathing bupropion AdvReac Unknown Anxiety Verified 06/23/18 14:57 escitalopram [From Lexapro] AdvReac Unknown Verified 06/23/18 14:54 fluoxetine AdvReac Unknown Verified 06/23/18 14:57 mirtazapine AdvReac Unknown Verified 06/23/18 14:56 Review of Systems <DO Nate Rogers Last Filed: 03/04/19 17:58> Constitutional Denies fever(s) and Denies headache(s) ENT Ears, Nose, Mouth, and Throat: Denies headache(s) Cardiovascular Denies chest pain and Denies dyspnea Respiratory Denies dyspnea Gastrointestinal Gastrointestinal: Reports abdominal pain, Reports nausea and Reports vomiting Comments: Decreased ostomy output Genitourinary Denies dysuria Integumentary/Breasts Denies rash Neurologic Denies behavioral changes and Denies headache(s) Psychiatric Denies behavioral changes Hematologic/Lymphatic Denies easy bleeding and Denies easy bruising PFSH <DO Nate Rogers Last Filed: 03/04/19 17:58> Medical History Ovarian cancer (Acute) Asthma (Acute) Renal cell carcinoma (Acute) Tubal ligation evaluation (Acute) Surgical History (Updated 01/06/19 @ 10:27 by Irina Perla MD) H/O breast biopsy (Acute) Social History marital status: household members: spouse Smoking Status: Never smoker alcohol intake: never substance use type: does not use Social History marital status: household members: spouse Smoking Status: Never smoker alcohol intake: never substance use type: does not use Exam <DO Nate Rogers Last Filed: 03/04/19 17:58> Initial Vital Signs Initial Vital Signs: Vital Signs Temperature 97.8 F 03/04/19 05:21 Pulse Rate 87 03/04/19 05:21 Respiratory Rate 18 03/04/19 05:21 Blood Pressure 148/87 H 03/04/19 05:21 Pulse Oximetry 97 03/04/19 05:21 Const General: cooperative and ill appearing Orientation: alert and awake Resp Effort & Inspection: normal respiratory effort Auscultation: clear to auscultation bilaterally Cardio Rate: regular rate GI Inspection: distended and incision (Midline incision looks well) Palpation: tender (Generalized tenderness) Other: Ostomy in place looks well Skin Lesions: no lesions Rashes: no rashes Neuro General: alert and awake Cognition: normal cognition Speech: speech normal Extrem General: normal to inspection and capillary refill normal Psych Appearance: grossly normal and well kempt <Chanda Lai DO - Last Filed: 03/04/19 15:06> Narrative Exam Narrative: GENERAL: Alert and oriented x three, elderly appearing female in mild distress. HEENT: Head normocephalic, atraumatic, EOMI, pupils reactive, face symmetric, moist mucous membranes NECK: Supple, full range of motion CARDIOVASCULAR: Regular rate and rhythm without murmurs, rubs or gallops. RESPIRATORY: Breath sounds equal bilaterally, no wheezes rales or rhonchi. ABDOMEN: Soft, nontender to palpation. Normoactive bowel sounds all 4 quadrants. No guarding or rebound, rigidity, no mass. Patient has a colostomy present, there is a very minimal amount of air and about 20 cc of liquidy stool. Per patient this is all the output she has had over the last 72 hours and she has not changed her colostomy since. The surrounding area looks clean dry and intact without any signs of infection. Patient also has midline incision with dorina present that appears clean dry and intact and healing. : No CVA tenderness EXTREMITIES: Normal range of motion, no clubbing or edema. Neurovascularly intact NEUROLOGICAL: Cranial nerves II through XII grossly intact. Moving all extremities SKIN: Warm, dry, no petechiae, no rashes or lesions. Initial Vital Signs Initial Vital Signs: Vital Signs Temperature 97.8 F 03/04/19 05:21 Pulse Rate 87 03/04/19 05:21 Respiratory Rate 18 03/04/19 05:21 Blood Pressure 148/87 H 03/04/19 05:21 Pulse Oximetry 97 03/04/19 05:21 Course <Arun Cantu DO - Last Filed: 03/04/19 17:58> Orders Ordered: ED Orders 03/04/19 09:47 XR KUB Stat Benzocaine/Butamben/Tetracaine HCl (Cetacaine [place]) 1 spray TOP PRN PRN PRN Reason: Sore Throat Last Admin: 03/04/19 12:02 Dose: 1 spray Sodium Chloride (Normal Saline 0.9%) 1,000 mls @ 200 mls/hr IV CONT LILIAN Last Admin: 03/04/19 14:24 Dose: 200 mls/hr Infusion: 03/04/19 14:24 Dose: 0 mls/hr Infusion: 03/04/19 13:03 Dose: 0 mls/hr Admin: 03/04/19 08:31 Dose: 200 mls/hr Discontinued Medications Benzocaine/Butamben/Tetracaine HCl (Cetacaine [place]) 1 spray TOP PRN PRN PRN Reason: Sore Throat Diphenhydramine HCl (Benadryl) 12.5 mg IV NOW ONE Stop: 03/04/19 16:14 Last Admin: 03/04/19 16:15 Dose: 12.5 mg Sodium Chloride (Normal Saline 0.9%) 1,000 mls @ 150 mls/hr IV CONT LILIAN Last Infusion: 03/04/19 07:44 Dose: 0 mls/hr Admin: 03/04/19 06:12 Dose: 150 mls/hr Sodium Chloride (Normal Saline 0.9%) 1,000 mls @ 1,000 mls/hr IV BOLUS ONE Stop: 03/04/19 08:28 Last Infusion: 03/04/19 08:32 Dose: 0 mls/hr Admin: 03/04/19 07:42 Dose: 1,000 mls/hr Lidocaine HCl (Xylocaine 1% (Pf)) 2 ml SUBCUT NOW ONE Stop: 03/04/19 05:31 Last Admin: 03/04/19 05:53 Dose: 2 ml Lidocaine HCl (Xylocaine 1% (Pf)) 2 ml INJ NOW ONE Stop: 03/04/19 09:29 Last Admin: 03/04/19 09:32 Dose: 2 ml Lorazepam (Ativan) 0.5 mg IV NOW ONE Stop: 03/04/19 08:33 Last Admin: 03/04/19 08:36 Dose: 0.5 mg Ondansetron HCl (Zofran Odt) 4 mg PO NOW ONE Stop: 03/04/19 05:21 Last Admin: 03/04/19 05:26 Dose: 4 mg Ondansetron HCl (Zofran) 4 mg IV NOW ONE Stop: 03/04/19 06:07 Last Admin: 03/04/19 06:11 Dose: 4 mg Ondansetron HCl (Zofran) 4 mg IV NOW ONE Stop: 03/04/19 07:42 Last Admin: 03/04/19 07:44 Dose: 4 mg Vital Signs - 8 hr 03/04/19 10:06 03/04/19 10:55 03/04/19 11:00 Temperature Pulse Rate 83 84 88 Respiratory Rate 17 14 17 Blood Pressure Blood Pressure [Left Arm] 147/82 H 143/81 H 144/87 H Pulse Oximetry 98 96 96 03/04/19 12:13 03/04/19 13:03 03/04/19 13:10 Temperature 98.3 F Pulse Rate 93 H 84 90 Respiratory Rate 16 16 16 Blood Pressure 148/76 H 149/72 H Blood Pressure [Left Arm] 159/91 H Pulse Oximetry 95 95 97 03/04/19 16:14 Temperature Pulse Rate 91 H Respiratory Rate 17 Blood Pressure Blood Pressure [Left Arm] 153/80 H Pulse Oximetry 97 <Chanda Lai DO - Last Filed: 03/04/19 15:06> Orders Ordered: ED Orders 03/04/19 09:47 XR KUB Stat Benzocaine/Butamben/Tetracaine HCl (Cetacaine [place]) 1 spray TOP PRN PRN PRN Reason: Sore Throat Last Admin: 03/04/19 12:02 Dose: 1 spray Sodium Chloride (Normal Saline 0.9%) 1,000 mls @ 200 mls/hr IV CONT LILIAN Last Admin: 03/04/19 14:24 Dose: 200 mls/hr Infusion: 03/04/19 14:24 Dose: 0 mls/hr Infusion: 03/04/19 13:03 Dose: 0 mls/hr Admin: 03/04/19 08:31 Dose: 200 mls/hr Discontinued Medications Benzocaine/Butamben/Tetracaine HCl (Cetacaine [place]) 1 spray TOP PRN PRN PRN Reason: Sore Throat Diphenhydramine HCl (Benadryl) 12.5 mg IV NOW ONE Stop: 03/04/19 16:14 Last Admin: 03/04/19 16:15 Dose: 12.5 mg Sodium Chloride (Normal Saline 0.9%) 1,000 mls @ 150 mls/hr IV CONT LILIAN Last Infusion: 03/04/19 07:44 Dose: 0 mls/hr Admin: 03/04/19 06:12 Dose: 150 mls/hr Sodium Chloride (Normal Saline 0.9%) 1,000 mls @ 1,000 mls/hr IV BOLUS ONE Stop: 03/04/19 08:28 Last Infusion: 03/04/19 08:32 Dose: 0 mls/hr Admin: 03/04/19 07:42 Dose: 1,000 mls/hr Lidocaine HCl (Xylocaine 1% (Pf)) 2 ml SUBCUT NOW ONE Stop: 03/04/19 05:31 Last Admin: 03/04/19 05:53 Dose: 2 ml Lidocaine HCl (Xylocaine 1% (Pf)) 2 ml INJ NOW ONE Stop: 03/04/19 09:29 Last Admin: 03/04/19 09:32 Dose: 2 ml Lorazepam (Ativan) 0.5 mg IV NOW ONE Stop: 03/04/19 08:33 Last Admin: 03/04/19 08:36 Dose: 0.5 mg Ondansetron HCl (Zofran Odt) 4 mg PO NOW ONE Stop: 03/04/19 05:21 Last Admin: 03/04/19 05:26 Dose: 4 mg Ondansetron HCl (Zofran) 4 mg IV NOW ONE Stop: 03/04/19 06:07 Last Admin: 03/04/19 06:11 Dose: 4 mg Ondansetron HCl (Zofran) 4 mg IV NOW ONE Stop: 03/04/19 07:42 Last Admin: 03/04/19 07:44 Dose: 4 mg Vital Signs - 8 hr 03/04/19 10:06 03/04/19 10:55 03/04/19 11:00 Temperature Pulse Rate 83 84 88 Respiratory Rate 17 14 17 Blood Pressure Blood Pressure [Left Arm] 147/82 H 143/81 H 144/87 H Pulse Oximetry 98 96 96 03/04/19 12:13 03/04/19 13:03 03/04/19 13:10 Temperature 98.3 F Pulse Rate 93 H 84 90 Respiratory Rate 16 16 16 Blood Pressure 148/76 H 149/72 H Blood Pressure [Left Arm] 159/91 H Pulse Oximetry 95 95 97 03/04/19 16:14 Temperature Pulse Rate 91 H Respiratory Rate 17 Blood Pressure Blood Pressure [Left Arm] 153/80 H Pulse Oximetry 97 MDM - Nausea/Vomiting/Diarrhea <Arun Cantu DO - Last Filed: 03/04/19 17:58> Lab Data Attestation: I reviewed the patient's lab results. Result diagrams: 03/04/19 05:48 03/04/19 05:48 Lab Results 03/04/19 03/04/1919 Range/Units 05:48 05:48 05:48 WBC 9.4 (4.5-11.0) X10^3/uL RBC 3.08 L (4.0-5.2) X10^6/uL Hgb 9.7 L (12.0-16.0) g/dL Hct 28.2 L (36-46) % MCV 91.4 (80-100) fL MCH 31.5 (26-34) PG MCHC 34.4 (30-36) % RDW 18.5 H (11.6-14.8) % Plt Count 522 H (150-400) X10^3/uL Neut % (Auto) 65.9 (50-75) % Lymph % (Auto) 15.4 L (25-40) % Frio % (Auto) 6.1 (3-14) % Eos % (Auto) 12.1 H (2-4) % Baso % (Auto) 0.5 (0-2) % Neut # (Auto) 6200 (3309-0346) /uL Lymph # (Auto) 1500 (2391-6490) /uL Frio # (Auto) 600 (0-900) /uL Eos # (Auto) 1100 H (0-450) /uL Baso # (Auto) 0 (0-100) /uL Sodium 134 L (137-145) mmol/L Potassium 3.6 (3.4-5.1) mmol/L Chloride 89 L (98-107) mmol/L Carbon Dioxide 35 H (22-32) mmol/L BUN 12 (7-17) mg/dL Creatinine 0.60 (0.52-1.04) mg/dL Estimated GFR > 60.0 (>60) mL/min BUN/Creatinine Ratio 20.0 (6-22) Glucose 119 H (80-110) mg/dL Lactate 0.7 (0.7-2.1) mmol/L Calcium 9.4 (8.4-10.2) mg/dL Total Bilirubin 0.4 (0.2-1.3) mg/dL AST 19 (14-36) IU/L ALT 16 (9-52) IU/L Alkaline Phosphatase 66 (38-126) U/L Total Protein 6.7 (6.3-8.2) g/dL Albumin 3.8 (3.5-5.0) g/dL Globulin 2.9 (1.7-4.1) g/dL Albumin/Globulin Ratio 1.3 (1.0-2.8) Lipase (23-300) U/L 03/04/19 Range/Units 05:48 WBC (4.5-11.0) X10^3/uL RBC (4.0-5.2) X10^6/uL Hgb (12.0-16.0) g/dL Hct (36-46) % MCV (80-100) fL MCH (26-34) PG MCHC (30-36) % RDW (11.6-14.8) % Plt Count (150-400) X10^3/uL Neut % (Auto) (50-75) % Lymph % (Auto) (25-40) % Frio % (Auto) (3-14) % Eos % (Auto) (2-4) % Baso % (Auto) (0-2) % Neut # (Auto) (2878-5374) /uL Lymph # (Auto) (2779-2054) /uL Frio # (Auto) (0-900) /uL Eos # (Auto) (0-450) /uL Baso # (Auto) (0-100) /uL Sodium (137-145) mmol/L Potassium (3.4-5.1) mmol/L Chloride (98-107) mmol/L Carbon Dioxide (22-32) mmol/L BUN (7-17) mg/dL Creatinine (0.52-1.04) mg/dL Estimated GFR (>60) mL/min BUN/Creatinine Ratio (6-22) Glucose (80-110) mg/dL Lactate (0.7-2.1) mmol/L Calcium (8.4-10.2) mg/dL Total Bilirubin (0.2-1.3) mg/dL AST (14-36) IU/L ALT (9-52) IU/L Alkaline Phosphatase (38-126) U/L Total Protein (6.3-8.2) g/dL Albumin (3.5-5.0) g/dL Globulin (1.7-4.1) g/dL Albumin/Globulin Ratio (1.0-2.8) Lipase 42 (23-300) U/L Urine Dip Bedside Urine Glucose Negative Bedside Urine Bilirubin - Negative Bedside Urine Ketone - Negative Urine Specific [place] 1.010 Bedside Urine Occult Blood - Negative Bedside Urine pH 8.0 Bedside Urine Protein +/- 15 Bedside Urine Urobilinogen - Negative Bedside Urine Nitrite - Negative Bedside Urine Leukocytes - Negative Esterase MDM Narrative Medical decision making narrative: History and Physical is concerning for a bowel obstruction. Labs appear to be relatively unremarkable. CT scan is pending. Care turned over to Dr. Lai at change of shift to follow up on CT scan <Chanda Lai, - Last Filed: 03/04/19 15:06> Lab Data Attestation: I reviewed the patient's lab results. Lab Results 03/04/19 03/04/19 03/04/19 Range/Units 05:48 05:48 05:48 WBC 9.4 (4.5-11.0) X10^3/uL RBC 3.08 L (4.0-5.2) X10^6/uL Hgb 9.7 L (12.0-16.0) g/dL Hct 28.2 L (36-46) % MCV 91.4 (80-100) fL MCH 31.5 (26-34) PG MCHC 34.4 (30-36) % RDW 18.5 H (11.6-14.8) % Plt Count 522 H (150-400) X10^3/uL Neut % (Auto) 65.9 (50-75) % Lymph % (Auto) 15.4 L (25-40) % Frio % (Auto) 6.1 (3-14) % Eos % (Auto) 12.1 H (2-4) % Baso % (Auto) 0.5 (0-2) % Neut # (Auto) 6200 (7251-2886) /uL Lymph # (Auto) 1500 (6930-1336) /uL Frio # (Auto) 600 (0-900) /uL Eos # (Auto) 1100 H (0-450) /uL Baso # (Auto) 0 (0-100) /uL Sodium 134 L (137-145) mmol/L Potassium 3.6 (3.4-5.1) mmol/L Chloride 89 L (98-107) mmol/L Carbon Dioxide 35 H (22-32) mmol/L BUN 12 (7-17) mg/dL Creatinine 0.60 (0.52-1.04) mg/dL Estimated GFR > 60.0 (>60) mL/min BUN/Creatinine Ratio 20.0 (6-22) Glucose 119 H (80-110) mg/dL Lactate 0.7 (0.7-2.1) mmol/L Calcium 9.4 (8.4-10.2) mg/dL Total Bilirubin 0.4 (0.2-1.3) mg/dL AST 19 (14-36) IU/L ALT 16 (9-52) IU/L Alkaline Phosphatase 66 (38-126) U/L Total Protein 6.7 (6.3-8.2) g/dL Albumin 3.8 (3.5-5.0) g/dL Globulin 2.9 (1.7-4.1) g/dL Albumin/Globulin Ratio 1.3 (1.0-2.8) Lipase (23-300) U/L 03/04/19 Range/Units 05:48 WBC (4.5-11.0) X10^3/uL RBC (4.0-5.2) X10^6/uL Hgb (12.0-16.0) g/dL Hct (36-46) % MCV (80-100) fL MCH (26-34) PG MCHC (30-36) % RDW (11.6-14.8) % Plt Count (150-400) X10^3/uL Neut % (Auto) (50-75) % Lymph % (Auto) (25-40) % Frio % (Auto) (3-14) % Eos % (Auto) (2-4) % Baso % (Auto) (0-2) % Neut # (Auto) (8920-0870) /uL Lymph # (Auto) (9237-2243) /uL Frio # (Auto) (0-900) /uL Eos # (Auto) (0-450) /uL Baso # (Auto) (0-100) /uL Sodium (137-145) mmol/L Potassium (3.4-5.1) mmol/L Chloride (98-107) mmol/L Carbon Dioxide (22-32) mmol/L BUN (7-17) mg/dL Creatinine (0.52-1.04) mg/dL Estimated GFR (>60) mL/min BUN/Creatinine Ratio (6-22) Glucose (80-110) mg/dL Lactate (0.7-2.1) mmol/L Calcium (8.4-10.2) mg/dL Total Bilirubin (0.2-1.3) mg/dL AST (14-36) IU/L ALT (9-52) IU/L Alkaline Phosphatase (38-126) U/L Total Protein (6.3-8.2) g/dL Albumin (3.5-5.0) g/dL Globulin (1.7-4.1) g/dL Albumin/Globulin Ratio (1.0-2.8) Lipase 42 (23-300) U/L Urine Dip Bedside Urine Glucose Negative Bedside Urine Bilirubin - Negative Bedside Urine Ketone - Negative Urine Specific [place] 1.010 Bedside Urine Occult Blood - Negative Bedside Urine pH 8.0 Bedside Urine Protein +/- 15 Bedside Urine Urobilinogen - Negative Bedside Urine Nitrite - Negative Bedside Urine Leukocytes - Negative Esterase MDM Narrative Medical decision making narrative: Patient signed out to myself by Dr. Cantu while pending CT report. Patient's labs show anemia although not drastically changed from prior hemoglobin. She had no leukocytosis, platelets are elevated at 522. A sodium 134 with a chloride 89 and a CO2 of 35. Normal renal function with a normal BUN. Glucose is 119 and LFTs do not show any acute changes. Report was called to myself that patient is status post hemicolectomy with small-bowel obstruction with a transition point at the anterior mid abdomen. Patient also is noted to have appears to be left renal cell carcinoma. Patient has had vomiting and nausea for the past 12 hours with minimal to no output via her colostomy Colostomy over the last [address] Capellan at [facility]. Patient continues to feel nauseated but has found zofran helpful and is not actively vomiting at this time. Reviewed patients labs and CT finding with her. Contacted [facility] and discussed with Dr. Capellan. She accepts for transfer but they do not have bed availability. Based on patient's stability she feels that patient can be conservatively managed here until a bed becomes available. She does recommended NG tube which was placed and patient had 1300 cc out immediately. She recommends continued IV fluids and supportive care. If patient has any changes or worsening in her symptoms they can be re-contacted and she is happy to consult via phone in the event that patient may need a transfer sooner. Spoke with Dr. Abbasi from general surgery and he is aware of the patient and that he has been consulted for Internal Medicine. Patient was accepted by Dr. Cody. Discharge Plan Departure Clinical Impression: Bowel obstruction, Renal cell carcinoma Interventions: ED Discharge Assessment Last Done: 03/04/19 16:54 Prescriptions: No Action sertraline 100 mg tablet 100 mg PO DAILY RF: 0 acetaminophen 500 mg Capsule 500 mg PO Q6H PRN (Reason: PAIN) RF: 0 ibuprofen 600 mg tablet 600 mg PO Q6H PRN (Reason: pain) RF: 0 lorazepam 0.5 mg tablet 0.25 - 0.5 mg PO TID PRN (Reason: Anxiety) RF: 0 oxycodone 5 mg tablet 5 mg PO PRN PRN (Reason: pain) RF: 0 melatonin 5 mg Tablet 5 mg PO BEDTIME PRN (Reason: Sleep) RF: 0 albuterol sulfate [Ventolin HFA] 90 mcg/actuation Hfa Aerosol Inhaler 2 puff INHALATION Q4H PRN (Reason: Shortness Of Breath) RF: 0 ondansetron HCl [Zofran] 8 mg Tablet 8 mg PO BID-TID PRN (Reason: Nausea) Qty: 20 RF: 3 Flovent HFA 110 mcg/actuation HFA aerosol inhaler 1 puff Inhalation BID RF: 0 Referrals: Niraj Cantu MD [Primary Care Provider] -
[2019-03-04] MEDS: ONDANSETRON 4 MG ODT PO (05:26)
[2019-03-04] MEDS: LIDOCAINE 1% (PF) 2 ML SUBCUT (05:53)
[2019-03-04 05:55] LABS: Add Manual Diff / Slide Review NO; Basophils Absolute Auto 0 /uL (0-100); Basophils Percent Auto 0.5 % (0-2); Eosinophils Absolute Auto 1100 /uL (0-450); Eosinophils Percent Auto 12.1 % (2-4); Hematocrit 28.2 % (36-46); Hemoglobin 9.7 g/dL (12.0-16.0); Lymphocytes Absolute Auto 1500 /uL (1100-4500); Lymphocytes Percent Auto 15.4 % (25-40); Mean Corpuscular HGB Conc 34.4 % (30-36); Mean Corpuscular Hemoglobin 31.5 PG (26-34); Mean Corpuscular Volume 91.4 fL (80-100); Monocytes Absolute Auto 600 /uL (0-900); Monocytes Percent Auto 6.1 % (3-14); Neutrophils Absolute Auto 6200 /uL (1500-7000); Neutrophils Percent Auto 65.9 % (50-75); Platelet Count 522 X10^3/uL (150-400); Red Blood Cell Count 3.08 X10^6/uL (4.0-5.2); Red Cell Distribution Width 18.5 % (11.6-14.8); White Blood Cell Count 9.4 X10^3/uL (4.5-11.0)
--- NOTE | 2019-03-04 05:56 | PC.NURSE ---
Patient feeling like her nausea has subsided enough after SL Zofran to begin drinking contrast. Labs sent.
[2019-03-04 06:06] LABS: Lactate (Lactic Acid) 0.7 mmol/L (0.7-2.1)
[2019-03-04 06:07] LABS: Alanine Aminotransferase 16 IU/L (9-52); Albumin 3.8 g/dL (3.5-5.0); Albumin Globulin Ratio 1.3 (1.0-2.8); Alkaline Phosphatase 66 U/L (38-126); Aspartate Aminotransferase 19 IU/L (14-36); Bilirubin Total 0.4 mg/dL (0.2-1.3); Blood Urea Nitrogen 12 mg/dL (7-17); Calcium 9.4 mg/dL (8.4-10.2); Carbon Dioxide 35 mmol/L (22-32); Chloride 89 mmol/L (98-107); Estimated Glomerular Filt Rate > 60.0 mL/min (>60); Globulin 2.9 g/dL (1.7-4.1); Glucose 119 mg/dL (80-110); HEMOLYSIS < 15 (0-50); Lipase 42 U/L (23-300); Potassium 3.6 mmol/L (3.4-5.1); Sodium 134 mmol/L (137-145); Total Protein 6.7 g/dL (6.3-8.2)
[2019-03-04] MEDS: ONDANSETRON 4 MG/2 ML INJ IV ×2 (06:11→07:44)
[2019-03-04] MEDS: SODIUM CHLORIDE 0.9% 1,000 ML 150 ML IV (06:12)
--- NOTE | 2019-03-04 06:15 | PC.NURSE ---
Patient medicated for nausea. Finished with PO contrast and now awaiting CT.
--- NOTE | 2019-03-04 06:56 | PC.NURSE ---
Patient returns from CT scan. Denies complaints at this time and denies needs. Patient with no nausea at the moment. Awaiting CT results. Pt and spouse updated on plan of care.
[2019-03-04] MEDS: SODIUM CHLORIDE 0.9% 1,000 ML 1000 ML IV (07:42)
[2019-03-04] MEDS: SODIUM CHLORIDE 0.9% 1,000 ML 200 ML IV ×2 (08:31→14:24)
[2019-03-04] MEDS: LORazepam 2 MG/ML INJ 0.5 MG IV (08:36)
[2019-03-04] MEDS: LIDOCAINE 1% (PF) 2 ML INJ (09:32)
--- NOTE | 2019-03-04 09:47 | DI.RAD.S_ITS ---
PROCEDURE: XR KUB INDICATIONS: post NGT placement TECHNIQUE: One view of the abdomen acquired. COMPARISON: [facility], CT, CT ABDOMEN PELVIS W CON, 03/04/2019, 5:37. FINDINGS: Surgical changes and devices: A nasogastric tube coils within the gastric cardia, and the side-port is well below the EG junction. Bowel: Bowel gas pattern is normal. Soft tissues: No suspicious abdominal calcifications. Visualized solid organ contours appear normal in size. Note is made of expected excretion of injected contrast from CT scanning performed earlier today, opac and partially opacifying the ureters, and the bladder. ifying the collecting systems of the kidneys bilaterally, Bones: No suspicious bony lesions. IMPRESSION: Nasogastric tube side port below the EG junction, with the tube coiling within the gastric cardia this time. No abnormality is seen at the urinary tract partially opacified by excreted contrast from CT scanning earlier today. Dictated by: Flynn Robbins M.D. on 03/04/2019 at 9:59 Approved by: Flynn Robbins M.D. on 03/04/2019 at 10:00
[2019-03-04] MEDS: TETRACAINE/BENZOCAINE/BUTAMBEN (CETACAINE) BOTTLE 1 SPRAY TOP (12:02)
--- NOTE | 2019-03-04 14:52 | PC.NURSE ---
Pt admitted to room 227 at 1310. She is admitted for a SBO after having a surgery to try and do a closure of her colostomy but it was unsuccessful due to to much scar tissue from ovarian tumor removal. Pt is now producing some soft, liquid stool in her pouch.. She has an NG tube to low intermittent suction and this is putting out a light green bile. Pt is A&Ox3 and pleasant. She voided before laying down in bed. Resting comfortably at this time and pt is npo.
[2019-03-04] MEDS: diphenhydrAMINE 50 MG/ML VIAL 12.5 MG IV (16:15)
== END 2019-03-04 20:13 | disposition short-term general hospital (02) ==
LOC: ED 10:27 → AC 10:47 → ED 20:00
PROVIDERS: Emergency Medicine; Emergency Provider Emergency Medicine; Family Provider Internal Medicine; PCP Internal Medicine
DX: K91.30 Postprocedural intestinal obstruction, unspecified as to partial versus complete (principal); C64.9 Malignant neoplasm of unspecified kidney, except renal pelvis
CPT/HCPCS: 36591; 74018; 74177; 80053; 81003; 83605; 83690; 85025; 96361; 96374; 96375; 96376; 99285; J1200; J2060; J2405; Q9967

== ENCOUNTER → 2019-08-09 13:50 | Outpatient (CLI) | payer MEDICARE, OTHER, SELFPAY ==
[2019-03-04 14:38] VITALS: BMI 25.0
[2019-08-09 14:08] LABS: Add Manual Diff / Slide Review NO; Basophils Absolute Auto 0 /uL (0-100); Basophils Percent Auto 0.6 % (0-2); Eosinophils Absolute Auto 300 /uL (0-450); Eosinophils Percent Auto 3.8 % (2-4); Hematocrit 39.6 % (36-46); Hemoglobin 13.3 g/dL (12.0-16.0); Lymphocytes Absolute Auto 2500 /uL (1100-4500); Mean Corpuscular HGB Conc 33.7 % (30-36); Mean Corpuscular Hemoglobin 29.5 PG (26-34); Mean Corpuscular Volume 87.6 fL (80-100); Monocytes Absolute Auto 500 /uL (0-900); Monocytes Percent Auto 7.3 % (3-14); Neutrophils Absolute Auto 3500 /uL (1500-7000); Neutrophils Percent Auto 51.3 % (50-75); Platelet Count 304 X10^3/uL (150-400); Red Blood Cell Count 4.51 X10^6/uL (4.0-5.2); Red Cell Distribution Width 15.8 % (11.6-14.8); White Blood Cell Count 6.8 X10^3/uL (4.5-11.0)
--- NOTE | 2019-08-09 14:20 | DI.CT.S_ITS ---
PROCEDURE: CT ABDOMEN W CON INDICATIONS: LEFT RENAL MASS TECHNIQUE: After the administration of oral and intravenous contrast, 5 mm thick sections acquired from the diaphragms to the iliac crests. 5 mm thick coronal and sagittal reformats were acquired. For radiation dose reduction, the following was used: automated exposure control, adjustment of mA and/or kV according to patient size. COMPARISON: [facility], CT, CT ABDOMEN PELVIS W CON, 03/04/2019, 5:37. [facility], CT, CT ABDOMEN PELVIS W CON, 08/09/2018, 16:42. FINDINGS: Image quality: Excellent. Lung bases: Lung bases are clear. Heart size is normal. Solid organs: Hepatic steatosis. Gallbladder negative. Biliary system is non dilated. 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 No adrenal nodules. Redemonstration of bilobed heterogeneous enhancing left renal mass measuring approximately 4.9 x 3.8 cm, previously 4.6 x 4.3 cm on 08/09/18. No definite discernible change since the most recent comparison study date Peritoneum and bowel: Contrast enhanced bowel loops appear normal in caliber. Left-sided ostomy is only partially visualized. Ill-defined soft tissue attenuation nodularity present within the visualized right abdomen however not entirely included. This appears increased in size measuring 2.7 x 1.5 cm, previously 1.8 x 1.0 cm There are scattered nodular subcentimeter soft tissue attenuation lesions, potentially peritoneal metastases image 39 series 2 in the left paracolic gutter. No free fluid or air. Nodes and vessels: No retroperitoneal or mesenteric adenopathy by size criteria. Aorta and inferior vena cava are normal in size. Bones: No suspicious bony lesions. No vertebral body compression fractures. Miscellaneous: No ventral hernias. IMPRESSION: Hepatic steatosis Redemonstration of bilobed left heterogeneous renal mass, again compatible with renal cell carcinoma. No definite discernible interval change since 03/04/19 however suspect slight indolent growth since 08/09/18 Interval progression and ill-defined nodular soft tissue attenuation nodules within both paracolic gutters which is suspicious for intraperitoneal metastases. Dictated by: Hao Machuca M.D. on 08/09/2019 at 18:22 Approved by: Hao Machuca M.D. on 08/09/2019 at 18:40
[2019-08-09 14:21] LABS: Alanine Aminotransferase 20 IU/L (<35); Albumin 4.8 g/dL (3.5-5.0); Albumin Globulin Ratio 1.3 (1.0-2.8); Alkaline Phosphatase 74 U/L (38-126); Aspartate Aminotransferase 26 IU/L (14-36); BUN Creatinine Ratio 31.4 (6-22); Bilirubin Total 0.4 mg/dL (0.2-1.3); Blood Urea Nitrogen 22 mg/dL (7-17); Carbon Dioxide 29 mmol/L (22-32); Chloride 98 mmol/L (98-107); Estimated Glomerular Filt Rate > 60.0 mL/min (>60); Globulin 3.6 g/dL (1.7-4.1); Glucose 94 mg/dL (80-110); HEMOLYSIS < 15 (0-50); Potassium 4.1 mmol/L (3.4-5.1); Sodium 138 mmol/L (137-145); Total Protein 8.4 g/dL (6.3-8.2)
== END ==
PROVIDERS: Internal Medicine Hematology & Oncology; Visit Provider Urology
DX: C56.9 Malignant neoplasm of unspecified ovary (principal); N28.89 Other specified disorders of kidney and ureter; K76.0 Fatty (change of) liver, not elsewhere classified
CPT/HCPCS: 36415; 74160; 80053; 85025; Q9967

== ENCOUNTER → 2019-09-22 07:31 | Outpatient (CLI) | payer MEDICARE, OTHER, SELFPAY ==
[2019-03-04 14:38] VITALS: BMI 25.0
--- NOTE | 2019-09-22 07:34 | DI.NM.S_ITS ---
PROCEDURE: [facility] RADIOPHARMACEUTICAL: 24.8 mCi Tc-99m labeled autologous red cells IV. INDICATIONS: ovarian ca, anthracycline TECHNIQUE: After intravenous administration of autologous labeled WBC, HEBREW views of the chest were obtained. A region of interest was drawn around the left ventricle to calculate left ventricle ejection fraction. COMPARISON: None. FINDINGS: The heart and great vessels are of normal size and configuration. The left ventricle contracts normally, with left ventricle ejection fraction of 70.3%. Normal ejection fractions for this study are above 55%. A drop from baseline ejection fraction of greater than 10 percentage points or to below 45% on follow-up studies may be considered significant. IMPRESSION: Left ventricle ejection fraction is 70.3%. Dictated by: Belen Hobbs M.D. on 09/22/2019 at 11:33 Approved by: Belen Hobbs M.D. on 09/22/2019 at 11:34
== END ==
PROVIDERS: PCP Internal Medicine; Referring Provider Internal Medicine Hematology & Oncology; Visit Provider Internal Medicine Hematology & Oncology
DX: C56.9 Malignant neoplasm of unspecified ovary (principal)
CPT/HCPCS: 78472; A9512; A9538

== ENCOUNTER → 2020-04-02 18:24 | Outpatient (ROUT) | payer MEDICARE, OTHER, SELFPAY ==
[2019-03-04 14:38] VITALS: BMI 25.0
== END ==
PROVIDERS: PCP Internal Medicine; Visit Provider Internal Medicine
DX: R39.9 Unspecified symptoms and signs involving the genitourinary system (principal)
CPT/HCPCS: 87086

== ENCOUNTER 2020-06-28 16:51 | Emergency (ER) | payer MEDICARE, OTHER, SELFPAY ==
[2019-03-04 14:38] VITALS: BMI 25.0
[2020-06-28] VITALS (7 sets, daily range): BP systolic 131–155; BP diastolic 85–86; PULSE 88–96; RESP 14–27; TEMP 36.9; O2SAT 94–99; BMI 28.3
--- NOTE | 2020-06-28 17:34 | DI.CT.S_ITS ---
PROCEDURE: CT ABDOMEN PELVIS W CON INDICATIONS: RLQ pain, hx of ovarian CA TECHNIQUE: After the administration of intravenous contrast, 5 mm thick sections acquired from the diaphragm to the symphysis. 5 mm coronal and sagittal reformats were acquired. For radiation dose reduction, the following was used: automated exposure control, adjustment of mA and/or kV according to patient size. COMPARISON: [facility], CT, CT CHEST ABD PEL W CON, 01/19/2019, 10:54. [facility], CT, CT ABDOMEN PELVIS W CON, 10/28/2018, 13:52. [facility], CT, CT ABDOMEN PELVIS W CON, 10/06/2018, 11:04. [facility], CT, CT ABDOMEN PELVIS W CON, 09/24/2018, 17:12. [facility], CT, CT ABDOMEN W CON, 08/09/2019, 14:20. [facility], CT, CT ABDOMEN PELVIS W CON, 03/04/2019, 5:37. FINDINGS: Image quality: Excellent. ABDOMEN: Lung bases: Lung bases are clear. Heart size is normal. Small pericardial effusion. Solid organs: There is a 1.9 x 2.5 cm mass in the left hepatic lobe adjacent to the falciform ligament, enlarged compared to the last exam on 08/09/2019. Liver is normal in size and enhancement. Gallbladder is contracted. Biliary system is non dilated. Pancreas enhances normally. Spleen is normal in size. There is a 1.8 x 1.2 cm hypodense mass in the medial aspect of the spleen, unchanged. No adrenal nodules. There is a 3.7 x 4.4 x 3.0 cm lobulated mixed solid and cystic mass in the is inferior pole of left kidney, compatible with renal cell carcinoma. Kidneys demonstrate normal size and enhancement, without hydronephrosis. Peritoneum and bowel: There are multiple peritoneal nodules consistent with carcinomatosis. Compared to the last exam, there is interval enlargement. For example, there is a conglomerate 2.4 x 3.3 cm anterior to inferior spleen, previously multiple small nodules are present in the same area. There is a 3.7 x 3.6 cm cystic mass in the right anterior abdomen adjacent to the cecum. There is a small amount of ascites anterior to liver. Duodenum appears thickened. Bowel loops demonstrate normal caliber. There is a colostomy. Appendix is normal. No free fluid or air. Nodes and vessels: No retroperitoneal or mesenteric adenopathy by size criteria. Aorta and inferior vena cava are normal in size. Miscellaneous: No ventral hernias. PELVIS: Genitourinary: Bladder wall thickness is normal. Miscellaneous: No inguinal hernias or adenopathy. Bones: No suspicious bony lesions. No vertebral body compression fractures. IMPRESSION: 1. A 3.7 x 3.6 cm cystic mass in the right anterior abdomen adjacent to the cecum. Differential diagnosis include a small abscess or a cystic metastatic lesion. 2. Interval worsening of peritoneal carcinomatosis. 3. Interval enlargement of hepatic lesion consistent with metastasis. 4. Stable lesion in posterior medial aspect of the spleen. 5. Stable lobulated mass in the left kidney. 6. Duodenum is thickened. There is an air-fluid level in stomach. 7. Small pericardial effusion. Dictated by: Belen Hobbs M.D. on 06/28/2020 at 18:15 Approved by: Belen Hobbs M.D. on 06/28/2020 at 18:35
--- NOTE | 2020-06-28 17:40 | ED_ITS ---
HPI - Abdominal Pain <Jennifer HazelLEO - Last Filed: 06/28/20 20:33> General Chief Complaint: Abdominal Pain Stated Complaint: Sent From Onc, Pain In Rt Abd Time Seen by Provider: 06/28/20 17:25 Source: patient Mode of arrival: Ambulatory Limitations: no limitations History of Present Illness HPI narrative: 70yo female with a history of stage III high-grade serous ovarian carcinoma, renal mass, ostomy, presents emergency department per instruction of oncology. She is currently on chemo, last treatment was last week. Today she reported having right quadrant abdominal pain. There is a history of increased bleeding with chemo medication, she was sent to the emergency department for an abdominal CT scan. Laboratory work was done in oncology. She denies any other symptoms such as vomiting, change in ostomy output, dizziness, chest pain, fevers, shortness of breath, or any other concerns. Related Data Home Medications Medication Instructions Recorded Confirmed albuterol sulfate [Ventolin HFA] 2 puff INHALATION Q4H PRN 06/23/18 06/14/20 acetaminophen 500 mg PO Q6H PRN 09/24/18 06/14/20 sertraline 100 mg PO DAILY 09/24/18 06/14/20 fluticasone propionate [Flovent 1 puff INHALATION BID 10/28/18 06/14/20 HFA] ibuprofen 600 mg PO Q6H PRN 03/01/19 06/14/20 lorazepam 0.25 - 0.5 mg PO TID PRN 03/01/19 06/14/20 melatonin 5 mg PO BEDTIME PRN 03/01/19 06/14/20 oxycodone 5 mg PO PRN PRN 03/01/19 06/14/20 Previous Rx's Medication Instructions Recorded ondansetron HCl [Zofran] 8 mg PO BID-TID PRN #20 tab 12/23/18 Allergies Allergy/AdvReac Type Severity Reaction Status Date / Time venlafaxine [From Effexor] AdvReac Intermediate Difficulty Verified 06/23/18 14:57 Breathing bupropion AdvReac Unknown Anxiety Verified 06/23/18 14:57 escitalopram [From Lexapro] AdvReac Unknown Verified 06/23/18 14:54 fluoxetine AdvReac Unknown Verified 06/23/18 14:57 mirtazapine AdvReac Unknown Verified 06/23/18 14:56 Review of Systems <LEO López - Last Filed: 06/28/20 20:33> Review of Systems Narrative: REVIEW OF SYSTEMS: GENERAL: Denies fever or chills. HENT: No head trauma. CARDIOVASCULAR: No chest pain. RESPIRATORY: No cough. GASTROINTESTINAL: Complains of right-sided abdominal pain, see HPI GENITOURINARY: No flank pain. MUSCULOSKELETAL: No pain, weakness, or trauma. INTEGUMENTARY: No rash, lesions, or pruritus. PSYCH: No behavior or mood changes. Patient History <LEO López - Last Filed: 06/28/20 20:33> Medical History (Updated 07/02/20 @ 17:56 by Irina Perla MD) Asthma Double vision Ovarian cancer Renal cell carcinoma Tubal ligation evaluation Surgical History H/O breast biopsy Social History marital status: household members: spouse Smoking Status: Never smoker alcohol intake: never substance use type: does not use Smoking Status: Never smoker Substance Use Type: does not use Exam <LEO López - Last Filed: 06/28/20 20:33> Initial Vital Signs Initial Vital Signs: Vital Signs Blood Pressure 155/86 H 06/28/20 17:19 PHYSICAL EXAMINATION: GENERAL: 70-year-old female, awake and alert, no distress. HENT: Normocephalic, atraumatic. EYES: Conjunctiva pink, sclera white, no periorbital swelling. CARDIOVASCULAR: S1 and S2 sounds normal. Regular rate and rhythm, no murmurs, clicks, or bruits. No pedal edema. RESPIRATORY: Normal respiratory rate, trachea midline, airway patent. No stridor, nasal flaring or accessory muscle use. Lungs are clear in all jesus without wheeze, rhonchi, or crackles. GASTROINTESTINAL: Bowel sounds normoactive. Abdomen is soft, moderate right mid to lower quadrant tenderness with palpation. No organomegaly, no palpable masses. GENITALURINARY: No flank tenderness. MUSCULOSKELETAL: Normal gait and coordination. Equal tone and mass bilaterally. EXTREMITIES: CMS intact, no pedal edema. SKIN: Warm, dry, soft, appropriate color for ethnicity. No lesions, rashes, or wounds to visualized areas. NEURO: Alert and Oriented X 3. Good coordination. No ataxia, or sensory deficits, or cognitive issues. PSYCH: Appropriate affect and mood. <Chanda Lai DO - Last Filed: 07/04/20 09:19> Initial Vital Signs Initial Vital Signs: Vital Signs Blood Pressure 155/86 H 06/28/20 17:19 Course <Jennifer Hazel OPERATIONS PROGRAM MANAGER - Last Filed: 06/28/20 20:33> Course Course Narrative: 1930: Patient updated on CT results, denies need for pain medication at this time. 1917: I spoke with oncologist, Dr. Tijerina, discussed patient's history and new findings on CT as well as laboratory work. He stated that he will forward records to Dr. Perla and he will follow up with her tomorrow. We discussed that she is well-appearing and vitals are stable without concerns of significant infection. Discussed there is no indication for admission at this time. 1919: Updated patient on plan of care, she verbalized understanding. Discussed importance of follow-up with Dr. Perla tomorrow for further evaluation and treatment. Strict ED return precautions given. Orders Ordered: Discontinued Medications Heparin Sodium (Porcine) (Heparin 500 Unit/5 Ml Port Flush) 500 unit IV PRN PRN PRN Reason: Flush Last Admin: 06/28/20 20:19 Dose: 500 unit Documented by: AUPDIKE Reevaluation(s) Reevaluation #1: Patient staffed with Dr. Lai discussed test, test results, plan of care. Vital Signs Vital signs: Vital Signs - 8 hr 06/28/20 17:19 06/28/20 17:20 06/28/20 18:00 Temperature 98.4 F Pulse Rate 95 H 88 Respiratory Rate 18 21 Blood Pressure 155/86 H 155/86 H Pulse Oximetry 99 98 06/28/20 19:00 06/28/20 19:30 06/28/20 19:31 Temperature Pulse Rate 90 96 H 95 H Respiratory Rate 14 Blood Pressure 131/85 Pulse Oximetry 97 94 98 06/28/20 20:00 Temperature Pulse Rate 91 H Respiratory Rate 27 H Blood Pressure Pulse Oximetry 97 <Chanda Lai DO - Last Filed: 12/23/20 09:19> Orders Ordered: Discontinued Medications Heparin Sodium (Porcine) (Heparin 500 Unit/5 Ml Port Flush) 500 unit IV PRN PRN PRN Reason: Flush Last Admin: 06/28/20 20:19 Dose: 500 unit Documented by: ULISSES Vital Signs Vital signs: Vital Signs - 8 hr 06/28/20 17:19 06/28/20 17:20 06/28/20 18:00 Temperature 98.4 F Pulse Rate 95 H 88 Respiratory Rate 18 21 Blood Pressure 155/86 H 155/86 H Pulse Oximetry 99 98 06/28/20 19:00 06/28/20 19:30 06/28/20 19:31 Temperature Pulse Rate 90 96 H 95 H Respiratory Rate 14 Blood Pressure 131/85 Pulse Oximetry 97 94 98 06/28/20 20:00 Temperature Pulse Rate 91 H Respiratory Rate 27 H Blood Pressure Pulse Oximetry 97 MDM - Abdominal Pain <LEO López - Last Filed: 06/28/20 20:33> Medical Records Attestation: I reviewed the patient's medical records. Lab Data Attestation: I reviewed the patient's lab results. Point of care testing: Urine Dip Bedside Urine Glucose Negative Bedside Urine Bilirubin - Negative Bedside Urine Ketone - Negative Urine Specific [place] 1.010 Bedside Urine Occult Blood - Negative Bedside Urine pH 6.0 Bedside Urine Protein - Negative Bedside Urine Urobilinogen - Negative Bedside Urine Nitrite - Negative Bedside Urine Leukocytes - Negative Esterase Imaging Data CT scan - abdomen/pelvis: Radiologist's Impression: [address] [id number] Scan ReportSigned Patient: Paz Garcia [facility]#: [id number]: 1950cct:[id number]/Sex: 70 / FDate of Service: 06/28/20Loc: EDAccession Number: [id number] Procedure: CT abdomen pelvis w con Ordering Provider: Jennifer Hazel PROCEDURE: CT ABDOMEN PELVIS W CON INDICATIONS: RLQ pain, hx of ovarian CA TECHNIQUE: After the administration of intravenous contrast, 5 mm thick sections acquired from the diaphragm to the symphysis. 5 mm coronal and sagittal reformats were acquired. For radiation dose reduction, the following was used: automated exposure control, adjustment of mA and/or kV according to patient size. COMPARISON: [facility], CT, CT CHEST ABD PEL W CON, 01/19/2019, 10:54. [facility], CT, CT ABDOMEN PELVIS W CON, 10/28/2018, 13:52. [facility], CT, CT ABDOMEN PELVIS W CON, 10/06/2018, 11:04. [facility], CT, CT ABDOMEN PELVIS W CON, 09/24/2018, 17:12. [facility], CT, CT ABDOMEN W CON, 08/09/2019, 14:20. [facility], CT, CT ABDOMEN PELVIS W CON, 03/04/2019, 5:37. FINDINGS: Image quality: Excellent. ABDOMEN: Lung bases: Lung bases are clear. Heart size is normal. Small pericardial effusion. Solid organs: There is a 1.9 x 2.5 cm mass in the left hepatic lobe adjacent to the falciform ligament, enlarged compared to the last exam on 08/09/2019. Liver is normal in size and enhancement. Gallbladder is contracted. Biliary system is non dilated. Pancreas enhances normally. Spleen is normal in size. There is a 1.8 x 1.2 cm hypodense mass in the medial aspect of the spleen, unchanged. No adrenal nodules. There is a 3.7 x 4.4 x 3.0 cm lobulated mixed solid and cystic mass in the is inferior pole of left kidney, compatible with renal cell carcinoma. Kidneys demonstrate normal size and enhancement, without hydronephrosis. Peritoneum and bowel: There are multiple peritoneal nodules consistent with carcinomatosis. Compared to the last exam, there is interval enlargement. For example, there is a conglomerate 2.4 x 3.3 cm anterior to inferior spleen, previously m ultiple small nodules are present in the same area. There is a 3.7 x 3.6 cm cystic mass in the right anterior abdomen adjacent to the cecum. There is a small amount of ascites anterior to liver. Duodenum appears thickened. Bowel loops demonstrate normal caliber. There is a colostomy. Appendix is normal. No free fluid or air. Nodes and vessels: No retroperitoneal or mesenteric adenopathy by size criteria. Aorta and inferior vena cava are normal in size. Miscellaneous: No ventral hernias. PELVIS: Genitourinary: Bladder wall thickness is normal. Miscellaneous: No inguinal hernias or adenopathy. Bones: No suspicious bony lesions. No vertebral body compression fractures. IMPRESSION: 1. A 3.7 x 3.6 cm cystic mass in the right anterior abdomen adjacent to the cecum. Differential diagnosis include a small abscess or a cystic metastatic lesion. 2. Interval worsening of peritoneal carcinomatosis. 3. Interval enlargement of hepatic lesion consistent with metastasis. 4. Stable lesion in posterior medial aspect of the spleen. 5. Stable lobulated mass in the left kidney. 6. Duodenum is thickened. There is an air-fluid level in stomach. 7. Small pericardial effusion. Dictated by: Belen Hobbs M.D. on 06/28/2020 at 18:15 Approved by: Belen Hobbs M.D. on 06/28/2020 at 18:35 MDM Narrative Medical decision making narrative: 70-year-old female with history of ovarian cancer, presents emergency department for right lower quadrant pain. She was in oncology and has some concern about possible bleeding as she is on chemo medications that can increase this. I suspect the pain is most likely caused by the cystic lesion seen on CT. Differential also includes worsening metastasis as seen on CT as well. Cystic lesion differential includes abscess versus metastasis. Less concern for sepsis as patient is well-appearing, hemodynamically stable, non tachycardic, afebrile, and patient's laboratory work is non-remarkable. I discussed with patient extensively about pain control, she continually denied pain medication throughout the ED stay. She denied needing anything for pain management at home. We discussed the importance of returning to the ED for any new or worsening symptoms. She was encouraged to call Dr. Perla's office tomorrow if she has not heard from them by 1:00 p.m.. Patient was agreeable to plan of care. <Chanda Lai, DO - Last Filed: 07/04/20 09:19> Lab Data Point of care testing: Urine Dip Bedside Urine Glucose Negative Bedside Urine Bilirubin - Negative Bedside Urine Ketone - Negative Urine Specific [place] 1.010 Bedside Urine Occult Blood - Negative Bedside Urine pH 6.0 Bedside Urine Protein - Negative Bedside Urine Urobilinogen - Negative Bedside Urine Nitrite - Negative Bedside Urine Leukocytes - Negative Esterase Discharge Plan Departure Patient Disposition: Home Clinical Impression: Pelvic cyst Activity Restrictions/Additional Instructions: Thank you for entrusting me with your care today. As discussed, as discussed there is a 3.7 x3.6 cm cystic mass in the right anterior abdomen, worsening peritoneal carcinomatosis, and enlargement of a hepatic lesion. I spoke with oncologist Dr. Tijerina today, he will contact Dr. Machuca and they will follow-up with you tomorrow. Return emergency department for any new or worsening symptoms such as severe pain, high fevers, feeling ill, vomiting, or any other concerns. Prescriptions: No Action sertraline 100 mg tablet 100 mg PO DAILY RF: 0 acetaminophen 500 mg Capsule 500 mg PO Q6H PRN (Reason: PAIN) RF: 0 ibuprofen 600 mg tablet 600 mg PO Q6H PRN (Reason: pain) RF: 0 lorazepam 0.5 mg tablet 0.25 - 0.5 mg PO TID PRN (Reason: Anxiety) RF: 0 oxycodone 5 mg tablet 5 mg PO PRN PRN (Reason: pain) RF: 0 melatonin 5 mg Tablet 5 mg PO BEDTIME PRN (Reason: Sleep) RF: 0 albuterol sulfate [Ventolin HFA] 90 mcg/actuation Hfa Aerosol Inhaler 2 puff INHALATION Q4H PRN (Reason: Shortness Of Breath) RF: 0 ondansetron HCl [Zofran] 8 mg Tablet 8 mg PO BID-TID PRN (Reason: Nausea) Qty: 20 RF: 3 Flovent HFA 110 mcg/actuation HFA aerosol inhaler 1 puff Inhalation BID RF: 0 Referrals: Niraj Cantu MD [Primary Care Provider] - Yaniv Tijerina MD [Physician] - Irina Perla MD [Physician] - <Chanda Lai DO - Last Filed: 07/04/20 09:19> Cosign ED Attending Cosdenisseature Attestation: I was immediately available in the department for consultation. Documentation has been reviewed.
--- NOTE | 2020-06-28 20:12 | PC.NURSE ---
Pt following up with her oncologist in the morning. Pt and provider wish for her port to remain accessed. Flushed with heparin.
== END 2020-06-28 20:23 | disposition home or self-care (01) ==
PROVIDERS: Emergency Provider Nurse Practitioner; PCP Internal Medicine
DX: N94.89 Other specified conditions associated with female genital organs and menstrual cycle (principal); C56.9 Malignant neoplasm of unspecified ovary; C64.9 Malignant neoplasm of unspecified kidney, except renal pelvis
CPT/HCPCS: 36591; 74177; 80053; 81001; 81003; 85025; 86304; 86305; 87086; 99283; 99284; J1642; Q9967

== ENCOUNTER → 2020-07-04 16:32 | Outpatient (CLI) | payer MEDICARE, OTHER, SELFPAY ==
[2019-03-04 14:38] VITALS: BMI 25.0
--- NOTE | 2020-07-04 16:35 | DI.MRI.S_ITS ---
PROCEDURE: MR HEAD/BRAIN WO/W CON INDICATIONS: OVARIAN CANCER, DOUBLE VISION TECHNIQUE: Noncontrast axial T1 spin echo, axial T2 fast spin echo, sagittal and axial FLAIR, coronal T2 fast spin echo, axial gradient echo, axial diffusion and ADC through the brain. After the administration of contrast, axial and coronal 3D VIBE or T1 spin echo with fat saturation through the brain. COMPARISON: None. FINDINGS: Image quality: Excellent. CSF Spaces: Basal cisterns are patent. No extra-axial fluid collections. Ventricles are normal in size and shape. Brain: No midline shift. No intracranial bleeds or masses. No abnormal intracranial enhancement. The brainstem appears normal. Diffusion-weighted images demonstrate no acute ischemic insults. No chronic ischemic insults. Normal intravascular flow voids are present. Skull and face: Calvarial marrow is normal in signal. Orbits appear normal. Sinuses: Sinuses and mastoids appear clear. IMPRESSION: Source of reported double vision is not seen. Dictated by: Flynn Robbins M.D. on 07/05/2020 at 8:10 Approved by: Flynn Robbins M.D. on 07/05/2020 at 8:11
== END ==
PROVIDERS: PCP Internal Medicine; Referring Provider Internal Medicine Hematology & Oncology; Visit Provider Internal Medicine Hematology & Oncology
DX: C56.9 Malignant neoplasm of unspecified ovary (principal); H53.2 Diplopia
CPT/HCPCS: 70553; A9579

== ENCOUNTER → 2020-08-20 10:52 | Outpatient (CLI) | payer MEDICARE, OTHER, SELFPAY ==
[2019-03-04 14:38] VITALS: BMI 25.0
--- NOTE | 2020-08-20 10:54 | DI.US.S_ITS ---
PROCEDURE: US ABDOMEN COMPLETE INDICATIONS: EPIGASTRIC PAIN TECHNIQUE: Real-time scanning was performed of the abdominal and retroperitoneal organs, with image documentation. COMPARISON: None. FINDINGS: Liver: The liver demonstrates normal size and demonstrates no focal lesions. The previously seen lesion adjacent to the false form ligament is not seen on the current ultrasound. The liver contour is within normal limits. Gallbladder: No findings of gallstones or sludge are seen. The gallbladder wall is not thickened, measuring 3 mm or less. Polyps versus mild septations can be seen within the gallbladder. No specific pericholecystic fluid is seen. The sonographic Chong sign is negative. Biliary ducts: Intrahepatic bile ducts are non-dilated. Extrahepatic bile duct caliber measures 3 mm. Normal is 6-7 mm or less in diameter, or 10 mm or less post-cholecystectomy. Pancreas: Visualized portions of the pancreas are sonographically normal. Spleen: Spleen is normal in size and homogeneous in echotexture. The previously seen splenic lesion is not seen on the current ultrasound images. Adjacent to the spleen between the spleen and the left kidney, there is a mass seen without abnormal vascularity that measures 2.3 x 1.4 x 1.4 cm, which previously measured 2.4 x 3.3 cm. Kidneys: Kidneys are normal in size and echotexture. Right kidney measures 11.2 cm long; left kidney measures 14.1 cm long. No hydronephrosis or nephrolithiasis. At the inferior pole of the left kidney, there is an irregular mass seen with abnormally increased vascularity that measures 2.7 x 3.5 x 3.3 cm, which previously measured 3.7 x 4.4 x 3 cm. Aorta: Visualized aorta is normal in caliber at less than 3 cm. Iliacs: Not well seen. IVC: Intrahepatic inferior vena cava is patent. Miscellaneous: A small amount of ascites is seen. Within the right lower quadrant, there is a nonvascular mass that measures 5.5 x 4.2 x 4 cm, which previously measured 3.7 x 3.6 cm. IMPRESSION: A cause of focal epigastric pain is not identified on this study. Within the liver, there are polyps versus septations. The gallbladder otherwise demonstrates a normal sonographic appearance. No biliary dilatation is seen. The liver lesion and the splenic lesion seen on the prior CT are not seen by ultrasound. The previously seen lesion between the spleen and the left kidney is slightly smaller on the current study than on the prior. The previously seen lesion at the inferior pole of the left kidney is also slightly smaller on the current study than on the prior ultrasound. The right lower quadrant mass is also slightly smaller on the current study than on the prior ultrasound. A small amount of ascites is seen. Dictated by: Jose Fallon M.D. on 08/20/2020 at 11:43 Approved by: Jose Fallon M.D. on 08/20/2020 at 11:48
== END ==
PROVIDERS: PCP Internal Medicine; Referring Provider Internal Medicine Hematology & Oncology; Visit Provider Internal Medicine Hematology & Oncology
DX: C56.9 Malignant neoplasm of unspecified ovary (principal); C64.9 Malignant neoplasm of unspecified kidney, except renal pelvis; R10.13 Epigastric pain; R18.8 Other ascites
CPT/HCPCS: 76700

== ENCOUNTER 2021-03-02 06:30 | Emergency (ER) | payer MEDICARE, OTHER, SELFPAY ==
[2019-03-04 14:38] VITALS: BMI 25.0
[2021-03-02 06:57] VITALS: BP 140/97; PULSE 96; RESP 14; TEMP 36.6; O2SAT 102; BMI 24.0
[2021-03-02 07:32] LABS: Appearance Urine UA CLOUDY; Bilirubin Urine UA 1+ (NEGATIVE); Color Urine UA BROWN; Glucose Urine UA NEGATIVE (Negative); Ketones Urine UA NEGATIVE (NEGATIVE); Leukocyte Esterase Urine UA TRACE (NEGATIVE); Nitrite Urine UA POSITIVE (Negative); Occult Blood Urine UA 3+ (Negative); Protein Urine UA 3+ (Negative); Specific Gravity Urine UA >=1.030 (1.000-1.035); Urobilinogen Urine UA 0.2 E.U./dL (0.2); pH Urine UA 5.5 (4.5-8.0)
[2021-03-02 07:34] LABS: Ictotest Urine Negative (Negative); RBC Urine >100/HPF (0-5/HPF)
[2021-03-02 07:35] LABS: Bacteria Urine Moderate (10-30); Culture Indicated Urine Specimen Cultured; WBC Urine 10-30/HPF (0-5/HPF)
--- NOTE | 2021-03-02 07:37 | ED.FEMALEGU ---
HPI - Female Genitourinary General Chief complaint: Urogenital-Female Stated complaint: thinks she has uti Time Seen by Provider: 03/02/21 07:31 Source: patient Mode of arrival: Ambulatory Limitations: no limitations History of Present Illness HPI Narrative: This is a 70-year-old female comes with complaint of dysuria and frequency over the past day. Patient states she believes she has UTI. She has had them past typically have 1 every 2-3 years. Patient denies any fevers. She has had 1 episode of vomiting but attributes this to her recent chemotherapy treatment. Patient states she does not feel nauseated at this time. She denies any chest pain or shortness of breath. No abdominal, back or flank pain. She does have a colostomy present and has been draining brown stool without any changes. She denies any diarrhea constipation or black or bloody stools. Patient does take dexamethasone, folic acid, oxycodone as needed for pain, pantoprazole and sertraline. Related Data Home Medications Medication Instructions Recorded Confirmed albuterol sulfate 90 mcg/actuation 2 puff INHALATION Q4H PRN 06/23/18 08/16/20 aerosol inhaler (Ventolin HFA) acetaminophen 500 mg capsule 500 mg PO Q6H PRN 09/24/18 01/17/21 sertraline 100 mg tablet 200 mg PO DAILY 09/24/18 08/16/20 fluticasone propionate 110 1 puff INHALATION BID 10/28/18 08/16/20 mcg/actuation HFA aerosol inhaler ibuprofen 600 mg tablet 600 mg PO Q6H PRN 03/01/19 08/16/20 lorazepam 0.5 mg tablet 0.25 - 0.5 mg PO TID PRN 03/01/19 08/16/20 melatonin 5 mg tablet 5 mg PO BEDTIME PRN 03/01/19 08/16/20 pantoprazole 40 mg tablet,delayed mg PO BID 01/17/21 release Previous Rx's Medication Instructions Recorded ondansetron HCl 8 mg tablet 8 mg PO BID-TID PRN #20 tab 12/23/18 (Zofran) oxycodone 5 mg tablet 5 mg PO Q6H PRN #100 tab 10/04/20 folic acid 1 mg tablet 1 mg PO DAILY #30 tab 01/17/21 dexamethasone 4 mg tablet 4 mg PO BID #36 tab 02/07/21 cephalexin 500 mg capsule 500 mg PO BID 7 Days #14 cap 03/02/21 ondansetron HCl 4 mg tablet 4 mg PO Q6H PRN #5 tab 03/02/21 (Zofran) phenazopyridine 100 mg tablet 100 mg PO TID PRN #6 tab 03/02/21 (Pyridium) Allergies Allergy/AdvReac Type Severity Reaction Status Date / Time venlafaxine [From Effexor] AdvReac Intermediate Difficulty Verified 06/23/18 14:57 Breathing bupropion AdvReac Unknown Anxiety Verified 06/23/18 14:57 escitalopram [From Lexapro] AdvReac Unknown Verified 06/23/18 14:54 fluoxetine AdvReac Unknown Verified 06/23/18 14:57 mirtazapine AdvReac Unknown Verified 06/23/18 14:56 Review of Systems Review of Systems ROS Unobtainable: All systems reviewed & are unremarkable except as noted in HPI and below Patient History Medical History (Updated 03/02/21 @ 07:54 by Chanda Lai DO) Asthma Double vision Ovarian cancer Renal cell carcinoma Tubal ligation evaluation Surgical History H/O breast biopsy Substance Use Type: does not use Exam Narrative Exam Narrative: GENERAL: Alert and oriented x three, female in mild distress. HEENT: Head normocephalic, atraumatic, EOMI, pupils reactive, face symmetric, moist mucous membranes NECK: Supple, full range of motion CARDIOVASCULAR: Regular rate and rhythm without murmurs, rubs or gallops. RESPIRATORY: Breath sounds equal bilaterally, no wheezes rales or rhonchi. ABDOMEN: Soft, nontender. Normoactive bowel sounds all 4 quadrants. No guarding or rebound, rigidity, no mass. Patient has left-sided colostomy with surrounding skin clean dry and intact without any erythema. Patient is draining brownish liquid stool without any melena or hematochezia. : No CVA tenderness EXTREMITIES: Normal range of motion, no clubbing or edema. Neurovascularly intact NEUROLOGICAL: Cranial nerves II through XII grossly intact. Moving all extremities SKIN: Warm, dry, no petechiae, no rashes or lesions. Initial Vital Signs Initial Vital Signs: Vital Signs Temperature 97.8 F 03/02/21 06:57 Pulse Rate 96 H 03/02/21 06:57 Respiratory Rate 14 03/02/21 06:57 Blood Pressure 140/97 H 03/02/21 06:57 Pulse Oximetry 102 H 03/02/21 06:57 Course Orders Ordered: Discontinued Medications Cephalexin HCl (Cephalexin 250 Mg Capsule) 500 mg PO NOW ONE Stop: 03/02/21 07:50 Last Admin: 03/02/21 07:56 Dose: 500 mg Documented by: ULISSES Vital Signs Vital signs: Vital Signs - 8 hr 03/02/21 06:57 Temperature 97.8 F Pulse Rate 96 H Respiratory Rate 14 Blood Pressure 140/97 H Pulse Oximetry 102 H MDM - Female Genitourinary Lab Data Labs: Lab Results 03/02/21 Range/Units 07:19 Urine Color Brown Urine Appearance Cloudy Urine pH 5.5 (4.5-8.0) Ur Specific [place] >=1.030 H (1.000-1.035) Urine Protein 3+ H (Negative) Urine Glucose (UA) Negative (Negative) g/dL Urine Ketones Negative (NEGATIVE) Urine Occult Blood 3+ H (Negative) Urine Nitrate Positive H (Negative) Urine Bilirubin 1+ H (NEGATIVE) Ur Bilirubin Confirm Negative (Negative) Urine Urobilinogen 0.2 (0.2) E.U./dL Ur Leukocyte Esterase Trace H (NEGATIVE) Urine RBC >100/hpf H (0-5/HPF) Urine WBC 10-30/hpf H (0-5/HPF) Urine Bacteria Moderate (10-30) H (None) Ur Culture Indicated? Specimen cultured [facility] Narrative Medical decision making narrative: This is a 70-year-old female who comes with symptoms consistent with UTI with a positive UA with nitrates present. Urine culture is pending. Patient has had some prior cultures that have had a variety of types of growth. She states she has been on Keflex before and found it helpful. She is unsure she has a prescription for Zofran so 1 was provided. We discussed if she might think peridium would be helpful. Return precautions were discussed. Discharge Plan Departure Patient Disposition: Home Clinical Impression: Urinary tract infection Qualifiers: Urinary tract infection type: acute cystitis Hematuria presence: with hematuria Qualified Code(s): N30.01 - Acute cystitis with hematuria Instructions: DI for Urinary Tract Infection (UTI) Activity Restrictions/Additional Instructions: Follow-up with your physician this week for recheck if you are not having any improvement of your symptoms over the next 2-3 days. Take Keflex as prescribed. Take this until it is completely gone. You may take Pyridium 1 tablet every 8 hours as needed for bladder spasm. This medication will make your urine bright orange. May take Zofran/ondansetron 1 tablet every 6 hours as needed for nausea. Prescription sent to [facility] in [place]. Please return for fevers, lightheadedness or passing out, persistent vomiting, new chest pain, shortness of breath, abdominal, back or flank pain, inability urinate, black or bloody stools or other new or concerning symptoms. Prescriptions: New cephalexin 500 mg capsule 500 mg PO BID 7 Days Qty: 14 RF: 0 phenazopyridine [Pyridium] 100 mg tablet 100 mg PO TID PRN (Reason: pain) Qty: 6 RF: 0 ondansetron HCl [Zofran] 4 mg tablet 4 mg PO Q6H PRN (Reason: nausea and vomiting) Qty: 5 RF: 0 No Action sertraline 100 mg tablet 200 mg PO DAILY RF: 0 acetaminophen 500 mg Capsule 500 mg PO Q6H PRN (Reason: PAIN) RF: 0 ibuprofen 600 mg tablet 600 mg PO Q6H PRN (Reason: pain) RF: 0 lorazepam 0.5 mg tablet 0.25 - 0.5 mg PO TID PRN (Reason: Anxiety) RF: 0 melatonin 5 mg Tablet 5 mg PO BEDTIME PRN (Reason: Sleep) RF: 0 albuterol sulfate [Ventolin HFA] 90 mcg/actuation Hfa Aerosol Inhaler 2 puff INHALATION Q4H PRN (Reason: Shortness Of Breath) RF: 0 ondansetron HCl [Zofran] 8 mg Tablet 8 mg PO BID-TID PRN (Reason: Nausea) Qty: 20 RF: 3 oxycodone 5 mg tablet 5 mg PO Q6H PRN (Reason: pain) Qty: 100 RF: 0 pantoprazole 40 mg Tablet,Delayed Release (Dr/Ec) PO BID RF: 0 folic acid 1 mg Tablet 1 mg PO DAILY Qty: 30 RF: 5 dexamethasone 4 mg Tablet 4 mg PO BID Qty: 36 RF: 0 Flovent HFA 110 mcg/actuation HFA aerosol inhaler 1 puff Inhalation BID RF: 0 Referrals: Niraj Cantu MD [Primary Care Provider] -
[2021-03-02] MEDS: cephALEXin 250 MG CAPSULE 500 MG PO (07:56)
[2021-03-02 08:14] VITALS: BP 135/87; PULSE 78; RESP 18; O2SAT 97
== END 2021-03-02 08:14 | disposition home or self-care (01) ==
PROVIDERS: Emergency Provider Emergency Medicine; PCP Internal Medicine
DX: N30.01 Acute cystitis with hematuria (principal)
CPT/HCPCS: 81001; 87077; 87086; 87186; 99283

== ENCOUNTER 2021-04-12 23:13 | Observation (INO) | payer MEDICARE, OTHER, SELFPAY ==
[2019-03-04 14:38] VITALS: BMI 25.0
[2021-04-12 23:20] VITALS: BP 182/107; PULSE 121; RESP 28; TEMP 37.1; O2SAT 91; BMI 23.1
[2021-04-12 23:26] VITALS: BP 185/106
[2021-04-12 23:30] VITALS: BP 173/102; PULSE 104; RESP 35; O2SAT 99
[2021-04-12 23:34] LABS: COVID19 -Nasal RAPID Negative (Negative)
--- NOTE | 2021-04-12 23:38 | ED_ITS ---
HPI - General Adult General Chief complaint: Shortness of Breath/Dyspnea Stated complaint: sob Time Seen by Provider: 04/12/21 23:36 Source: patient Mode of arrival: EMS History of Present Illness HPI narrative: 70-year-old female. History of ovarian cancer and also history of asthma who arrived via EMS for evaluation of shortness of breath. States that over the past 24 hours she feels like she has become very short of breath. She has been using her inhaler at home without any improvement of the symptoms. She is currently under treatment for ovarian cancer. She denies chest pain. No other pain. His taking all of her medications as directed. Generally feels very poor. Related Data Home Medications Medication Instructions Recorded Confirmed albuterol sulfate 90 mcg/actuation 2 puff INHALATION Q4H PRN 06/23/18 03/21/21 aerosol inhaler (Ventolin HFA) acetaminophen 500 mg capsule 500 mg PO Q6H PRN 09/24/18 03/21/21 sertraline 100 mg tablet 200 mg PO DAILY 09/24/18 03/21/21 fluticasone propionate 110 1 puff INHALATION BID 10/28/18 03/21/21 mcg/actuation HFA aerosol inhaler ibuprofen 600 mg tablet 600 mg PO Q6H PRN 03/01/19 03/21/21 lorazepam 0.5 mg tablet 0.25 - 0.5 mg PO TID PRN 03/01/19 03/21/21 melatonin 5 mg tablet 5 mg PO BEDTIME PRN 03/01/19 03/21/21 pantoprazole 40 mg tablet,delayed mg PO BID 01/17/21 release olanzapine 5 mg tablet 5 mg PO DAILY 03/21/21 03/21/21 Previous Rx's Medication Instructions Recorded ondansetron HCl 8 mg tablet 8 mg PO BID-TID PRN #20 tab 12/23/18 (Zofran) oxycodone 5 mg tablet 5 mg PO Q6H PRN #100 tab 10/04/20 folic acid 1 mg tablet 1 mg PO DAILY #30 tab 01/17/21 dexamethasone 4 mg tablet 4 mg PO BID #36 tab 02/07/21 ondansetron HCl 4 mg tablet 4 mg PO Q6H PRN #5 tab 03/02/21 (Zofran) oxycodone 10 mg tablet,crush 10 mg PO Q12H #60 tab 03/07/21 resistant,extended release 12 hr (OxyContin) Allergies Allergy/AdvReac Type Severity Reaction Status Date / Time venlafaxine [From Effexor] AdvReac Intermediate Difficulty Verified 06/23/18 14:57 Breathing bupropion AdvReac Unknown Anxiety Verified 06/23/18 14:57 escitalopram [From Lexapro] AdvReac Unknown Verified 06/23/18 14:54 fluoxetine AdvReac Unknown Verified 06/23/18 14:57 mirtazapine AdvReac Unknown Verified 06/23/18 14:56 Review of Systems Constitutional Constitutional: Denies fever(s) and Denies headache(s) ENT Ears, Nose, Mouth, and Throat: Denies headache(s) Cardiovascular Cardiovascular: Reports as per HPI and Reports system reviewed and no additional complaints, except as documented Respiratory Respiratory: Reports as per HPI and Reports system reviewed and no additional complaints, except as documented Gastrointestinal Gastrointestinal: Reports system reviewed and no additional complaints, except as documented Musculoskeletal Musculoskeletal: Reports system reviewed and no additional complaints, except as documented Integumentary/Breasts Skin/Breast: Reports system reviewed and no additional complaints, except as doc umented Neurologic Neurologic: Denies headache(s) Hematologic/Lymphatic On Anticoagulants: No Allergic/Immunologic Allergic/Immunologic: Reports system reviewed and no additional complaints, except as documented Patient History Medical History Asthma Double vision Ovarian cancer Renal cell carcinoma Tubal ligation evaluation Surgical History H/O breast biopsy Social History marital status: household members: spouse Smoking Status: Never smoker alcohol intake: never substance use type: does not use Smoking Status: Never smoker Substance Use Type: does not use Exam Initial Vital Signs Initial Vital Signs: Vital Signs Temperature 98.7 F 04/12/21 23:20 Pulse Rate 121 H 04/12/21 23:20 Respiratory Rate 28 H 04/12/21 23:20 Blood Pressure 182/107 H 04/12/21 23:20 Pulse Oximetry 91 04/12/21 23:20 Const General: cooperative and comfortable HENMT Head: normal to inspection and normocephalic Resp Effort & Inspection: labored, no retractions and tachypneic Auscultation: clear to auscultation bilaterally Cardio Rate: tachycardic Rhythm: regular rhythm GI Inspection: normal to inspection Skin General: no rashes or lesions noted Neuro General: patient alert, patient awake and moves all extremities Extrem General: normal to inspection and capillary refill normal Psych Appearance: grossly normal and well kempt Course Orders Ordered: ED Orders 04/12/21 23:15 COVID19 -Nasal swab/Pre-Proc Stat 04/12/21 23:30 Complete Blood Count AUTO DIFF Stat Comprehensive Metabolic Panel Stat Lipase Stat NT-proBNP (BNP-Adult 18+) Stat Troponin & CK Cardiac Panel Stat 04/12/21 23:43 CT angio chest PE protocol Stat EKG-12 Lead Stat RT Consult Eval and Treat Now 04/13/21 00:40 CT abdomen pelvis w con Stat Sodium Chloride (Normal Saline 0.9%) 1,000 mls @ 125 mls/hr IV CONT LILIAN Last Infusion: 04/13/21 05:34 Dose: 125 mls/hr Documented by: Admin: 04/13/21 00:39 Dose: 125 mls/hr Documented by: ANGELICA Vital Signs Vital signs: Vital Signs - 8 hr 04/12/21 23:20 04/12/21 23:26 04/12/21 23:30 Temperature 98.7 F Pulse Rate 121 H 104 H Respiratory Rate 28 H 35 H Blood Pressure 182/107 H 185/106 H 173/102 H Pulse Oximetry 91 99 04/13/21 00:00 04/13/21 00:30 04/13/21 00:41 Temperature Pulse Rate 101 H 100 H 96 H Respiratory Rate 39 H 36 H 39 H Blood Pressure 180/101 H 170/111 H Pulse Oximetry 98 97 97 04/13/21 01:05 04/13/21 01:30 04/13/21 02:00 Temperature Pulse Rate 105 H 91 H 87 Respiratory Rate 27 H 36 H 28 H Blood Pressure Pulse Oximetry 98 98 98 04/13/21 02:30 04/13/21 02:42 04/13/21 03:01 Temperature Pulse Rate 84 89 113 H Respiratory Rate 33 H 24 21 Blood Pressure 173/100 H Pulse Oximetry 98 99 91 04/13/21 03:02 Temperature Pulse Rate 105 H Respiratory Rate 27 H Blood Pressure 182/95 H Pulse Oximetry 96 Medical Decision Making Medical Records Medical records reviewed: Yes I reviewed the patient's medical records. Lab Data Lab results reviewed: Yes I reviewed the patient's lab results. Result diagrams: 04/12/21 23:30 04/12/21 23:30 Labs: Lab Results 04/12/21 04/12/21 04/12/21 Range/Units 23:15 23:30 23:30 WBC 5.3 (4.5-11.0) X10^3/uL RBC 3.59 L (4.0-5.2) X10^6/uL Hgb 10.5 L (12.0-16.0) g/dL Hct 32.3 L (36-46) % MCV 90.1 (80-100) fL MCH 29.2 (26-34) PG MCHC 32.4 (30-36) % RDW 23.7 H (11.6-14.8) % Plt Count 263 (150-400) X10^3/uL Neut % (Auto) 48.6 L (50-75) % Lymph % (Auto) 35.6 (25-40) % [place] % (Auto) 10.8 (3-14) % Eos % (Auto) 4.2 H (2-4) % Baso % (Auto) 0.8 (0-2) % Neut # (Auto) 2600 (7600-9013) /uL Lymph # (Auto) 1900 (5389-2555) /uL [place] # (Auto) 600 (0-900) /uL Eos # (Auto) 200 (0-450) /uL Baso # (Auto) 0 (0-100) /uL RBC Morphology See below Anisocytosis 2+ H Sodium 141 (137-145) mmol/L Potassium 4.1 (3.4-5.1) mmol/L Chloride 108 H (98-107) mmol/L Carbon Dioxide 25 (22-32) mmol/L BUN 16 (7-17) mg/dL Creatinine 0.60 (0.52-1.04) mg/dL Estimated GFR > 60.0 (>60) mL/min BUN/Creatinine Ratio 26.7 H (6-22) Glucose 120 H (80-110) mg/dL Calcium 9.4 (8.4-10.2) mg/dL Total Bilirubin 0.4 (0.2-1.3) mg/dL AST 32 (14-36) IU/L ALT 14 (<35) IU/L Alkaline Phosphatase 109 (38-126) U/L Total Creatine Kinase 65 (30-135) U/L CK-MB (CK-2) TNP CK-MB (CK-2) Rel Index TNP Troponin I < 0.012 (0.01-0.034) ng/mL NT-Pro-B Natriuret Pep 425 H (<125) pg/mL Total Protein 8.2 (6.3-8.2) g/dL Albumin 4.0 (3.5-5.0) g/dL Globulin 4.2 H (1.7-4.1) g/dL Albumin/Globulin Ratio 1.0 (1.0-2.8) Lipase 136 (23-300) U/L SARS-CoV-2 (PCR) Negative (Negative) Imaging Data CT scan - chest: Radiologist's Impression: [place] [address] CT Scan Report Signed Patient: Paz Garcia MR#: [id number] : 1950 Acct:[id number] Age/Sex: 70 / F Date of Service: 04/12/21 Loc: ED Accession Number: [id number] ?? Procedure: CT angio chest PE protocol Ordering Provider: Arun Cantu D.O. PROCEDURE:? CT ANGIO CHEST PE PROTOCOL ? INDICATIONS:? Chest pain, shortness of breath, tachycardia ? TECHNIQUE:? After the administration of intravenous contrast, 2 mm thick sections acquired from the pulmonary apices to the posterior costophrenic angles.? 3-dimensional maximum intensity projection (MIP) coronal and sagittal reformats were then acquired through the thorax.? For radiation dose reduction, the following was used:? automated exposure control, adjustment of mA and/or kV according to patient size.? ? COMPARISON:? [facility], CT, CT ABDOMEN PELVIS W CON, 06/28/2020, 17:45.? [facility], CT, CT CHEST ABD PEL W CON, 01/19/2019, 10:54.? [facility], CT, CT ABDOMEN PELVIS W CON, 03/04/2019, 5:37. ? FINDINGS:? Image quality:? Excellent.? ? Pulmonary arteries:? Pulmonary arteries are normal in size, and demonstrate no intraluminal filling defects to suggest central pulmonary embolism.? ? Lungs and pleura:? There are small bilateral pleural effusions.? No pneu mothorax.? Central and peripheral airways are patent.? ? Mediastinum:? Heart size is normal.? There is a moderate pericardial effusion.? No mediastinal or hilar adenopathy.? Thoracic aorta is normal in caliber and enhancement.? Esophagus is normal in caliber, without hiatal hernia.? ? Bones and chest wall:? There is a right-sided chest port seen, with the tip seen near the cavoatrial junction.? No suspicious bony lesions.? Ribs and thoracic spine appear intact throughout.? Age-appropriate bony degenerative changes are seen.? Accentuated thoracic kyphosis is seen. ? Thyroid gland demonstrates no significant abnormality.? No axillary or supraclavicular adenopathy.? ? Abdomen:? There is moderate ascites seen within the upper abdomen.? Prominent periportal edema can be seen.? There are tiny bubbles of potential gas seen within the central liver.? Within the anterior mid liver, there is a worsening low-density lesion seen, as on series 4, image 152 that measures approximately 2.9 cm, which is attributed to worsening metastasis.? The visualized portions of the upper abdominal structures are otherwise unremarkable for imaging technique. ? ? ? IMPRESSION:? Negative for pulmonary embolism. ? Small bilateral pleural effusions are seen, which are clearly worse compared to prior. ? There is a moderate pericardial effusion, which has increased compared to the prior. ? Moderate ascites is seen within the visualized upper abdomen.? In this patient with known ovarian cancer, this may be related to worsening peritoneal metastatic disease. ? Prominent periportal edema is seen, which is nonspecific, yet can be seen in patients with hepatitis.? This finding is new compared to the 03/04/2019 CT examination. ? Tiny bubbles of potential gas can be seen that the central liver. ? Worsening liver metastasis. ? If not contraindicated, please consider a dedicated CT of the abdomen pelvis for further evaluation. ? ? Incidental note is made of: Right-sided chest port, with the tip near the cavoatrial junction ? Note: Findings and recommendations discussed by telephone with Dr. Cantu at 11:31 p.m. [place] time on April 12, 2021. ? ? Dictated by: Jose Fallon M.D. on 04/12/2021 at 23:23 ? ? Approved by: Jose Fallon M.D. on 04/12/2021 at 23:35? CT scan - abdomen/pelvis: Radiologist's Impression: [address] [address] [address] Scan Report Signed Patient: Paz Garcia MR#: [id number] : 1950 Acct:[id number] Age/Sex: 70 / F Date of Service: 04/13/21 Loc: ED Accession Number: [id number] ?? Procedure: CT abdomen pelvis w con Ordering Provider: Arun Cantu D.O. PROCEDURE:? CT ABDOMEN PELVIS W CON ? INDICATIONS:? Periportal air seen on chest CT ? TECHNIQUE:? After the administration of IV contrast, axial sections were acquired from the lung bases to the pubic symphysis.? Coronal and sagittal reformats were performed.? For radiation dose reduction, the following was used:? automated exposure control, adjustment of mA and/or kV according to patient size. ? COMPARISON:? [facility], CT, CT ABDOMEN W CON, 08/09/2019, 14:20.? [facility], CT, CT ANGIO CHEST PE PROTOCOL, 04/13/2021, 0:06.? [facility], US, US ABDOMEN COMPLETE, 08/20/2020, 11:08.? [facility], CT, CT ABDOMEN PELVIS W CON, 06/28/2020, 17:45. ? FINDINGS:? Image quality:? Excellent.? ? Lung bases:? Small bilateral pleural effusions are seen at the lung bases. Heart:? There is a moderate pericardial effusion. ? ? ABDOMEN: Liver:? The previously seen potential small bubbles of gas within the central liver are not seen on the current study.? Adjacent to the falciform ligament, there is an enlarging low-density mass seen now measures 3 cm, which is attributed to worsening metastatic disease.? Prominent periportal edema can be seen.? The portal vein appears normal, with normal enhancement. Gallbladder:? The gallbladder appears collapsed on the current study.? ? Biliary ducts:? Unremarkable.? ? Pancreas:? Unremarkable.? ? Spleen:? Unremarkable.? ? Adrenal Glands:? Unremarkable.? ? Kidneys and Ureters:? There is a partially exophytic mass seen along the anterior aspect of the left kidney that measures up to 4.4 cm and demonstrates irregularity and decreased enhancement.? This is similar to the prior examination. ? Stomach and Bowel:? Stomach, small bowel loops, and colon are unremarkable.? There is thickening of the omentum seen, with numerous irregular nodules along the peritoneal surfaces, including within the presacral region.? A worsening cystic and solid nodule can be seen immediately inferior to the spleen, as on series 4, image 24 that measures at least 2.4 cm. A left lower quadrant colostomy can be seen. A normal appendix is incidentally noted.? Peritoneum:? Abnormal fluid can be seen within the peritoneal cavity, with apparent loculation of fluid adjacent to the stomach, as well as a focus of loculated fluid within the right mid abdomen, as on series 2, image 41. No free air can be seen. ? Ventral Wall: ? No hernia.? Abdominal Nodes:? No retroperitoneal or mesenteric adenopathy by size criteria.? Vessels:? Aorta and inferior vena cava are normal in size.? ? PELVIS: Pelvic Organs:? Status post hysterectomy.? Pelvic clips can be seen. Bladder:? Unremarkable.? ? Pelvic Nodes: No enlarged lymph nodes.? Miscellaneous: No inguinal hernias are seen. ? ? ? Bones:? Mild dextroconvex scoliotic curvature is noted.? Age-appropriate bony degenerative changes are seen.? Grade 1 L4-5 anterolisthesis is seen, with focal degenerative change.? IMPRESSION:? ? No bubbles of gas can now be seen within the central liver.? The previously seen appearance may be related to artifact. ? Worsening metastatic disease to the liver. ? Relatively prominent periportal edema is seen, which is nonspecific, yet can be seen in patients with hepatitis. ? There is abnormal intraperitoneal fluid seen with locules within the upper abdomen, primarily adjacent to the stomach.? There is overall worsening of cystic and solid lesions along the peritoneal surfaces. ? This is attributed to worsening peritoneal metastatic disease in this patient with known ovarian cancer. ? Presumed neoplastic mass along the anterior aspect of the left kidney, stable. ? ? ? Incidental note is made of: Small bilateral pleural effusions Moderate pericardial effusion Normal appendix Left lower quadrant colostomy Hysterectomy Focal L4-L5 degenerative change Dextroconvex scoliotic curvature ? Dictated by: Jose Fallon M.D. on 04/13/2021 at 0:11 ? ? Approved by: Jose Fallon M.D. on 04/13/2021 at 0:21?? ECG Data Attestation: I personally reviewed and interpreted this ECG as follows: Interpretation: Sinus tachycardia Ventricular rate 105 Normal axis Normal QRS Normal QTC No ST T wave changes MDM Narrative Medical decision making narrative: Patient was not technically hypoxic upon arrival but was in the low 90s. She was very labored and had quite a bit of air hunger. This did improve with oxygen by nasal cannula. She had a clear lung exam. I did not feel that any further nebulizer treatments would be beneficial to her. She had no chest pain. CT scan of the chest was ordered which did not show any signs of pneumonia. No signs of pulmonary embolism. Radiologist reading the studies did not have access to a CT scan that was performed just 2 weeks ago. I did not have access to the pictures from the CT scan but I did have the report. It does appear that all of the abnormal findings seen on the CT scan of the chest and abdomen pelvis today are very similar to the CT scan from 2 weeks ago. There is no indication for any antibiotics. I did discuss the case with Dr. Ennis who was the oncologist public relations account executive the [facility]. There is no emergent oncologic issue that would require transfer. I do have some suspicion that her shortness of breath today is related to anxiety in the patient did express that this potentially could be the case as well. The plan will be is to admit her to this facility for continued observation. The patient may require oxygen at home for her comfort and air hunger issues. She understands the extent of her disease process. There has been talk of hospice/palliative care in the past and she is currently on palliative chemotherapy. Will admitted to the hospital for further evaluation. Discussed the case with Dr. Zimmerman who agrees to admit. Patient expressed understanding and agreement this plan. Discharge Plan Departure Patient Disposition: Admitted as Observation Clinical Impression: Shortness of breath, Ovarian cancer Admit Date/Time: 04/13/21 04:34 Admit Provider: Matteo Zimmerman
--- NOTE | 2021-04-12 23:43 | DI.CT.S_ITS ---
PROCEDURE: CT ANGIO CHEST PE PROTOCOL INDICATIONS: Chest pain, shortness of breath, tachycardia TECHNIQUE: After the administration of intravenous contrast, 2 mm thick sections acquired from the pulmonary apices to the posterior costophrenic angles. 3-dimensional maximum intensity projection (MIP) coronal and sagittal reformats were then acquired through the thorax. For radiation dose reduction, the following was used: automated exposure control, adjustment of mA and/or kV according to patient size. COMPARISON: [facility], CT, CT ABDOMEN PELVIS W CON, 06/28/2020, 17:45. [facility], CT, CT CHEST ABD PEL W CON, 01/19/2019, 10:54. [facility], CT, CT ABDOMEN PELVIS W CON, 03/04/2019, 5:37. FINDINGS: Image quality: Excellent. Pulmonary arteries: Pulmonary arteries are normal in size, and demonstrate no intraluminal filling defects to suggest central pulmonary embolism. Lungs and pleura: There are small bilateral pleural effusions. No pneumothorax. Central and peripheral airways are patent. Mediastinum: Heart size is normal. There is a moderate pericardial effusion. No mediastinal or hilar adenopathy. Thoracic aorta is normal in caliber and enhancement. Esophagus is normal in caliber, without hiatal hernia. Bones and chest wall: There is a right-sided chest port seen, with the tip seen near the cavoatrial junction. No suspicious bony lesions. Ribs and thoracic spine appear intact throughout. Age-appropriate bony degenerative changes are seen. Accentuated thoracic kyphosis is seen. Thyroid gland demonstrates no significant abnormality. No axillary or supraclavicular adenopathy. Abdomen: There is moderate ascites seen within the upper abdomen. Prominent periportal edema can be seen. There are tiny bubbles of potential gas seen within the central liver. Within the anterior mid liver, there is a worsening low-density lesion seen, as on series 4, image 152 that measures approximately 2.9 cm, which is attributed to worsening metastasis. The visualized portions of the upper abdominal structures are otherwise unremarkable for imaging technique. IMPRESSION: Negative for pulmonary embolism. Small bilateral pleural effusions are seen, which are clearly worse compared to prior. There is a moderate pericardial effusion, which has increased compared to the prior. Moderate ascites is seen within the visualized upper abdomen. In this patient with known ovarian cancer, this may be related to worsening peritoneal metastatic disease. Prominent periportal edema is seen, which is nonspecific, yet can be seen in patients with hepatitis. This finding is new compared to the 03/04/2019 CT examination. Tiny bubbles of potential gas can be seen that the central liver. Worsening liver metastasis. If not contraindicated, please consider a dedicated CT of the abdomen pelvis for further evaluation. Incidental note is made of: Right-sided chest port, with the tip near the cavoatrial junction Note: Findings and recommendations discussed by telephone with Dr. Cantu at 11:31 p.m. [place] time on April 12, 2021. Dictated by: Jose Fallon M.D. on 04/12/2021 at 23:23 Approved by: Jose Fallon M.D. on 04/12/2021 at 23:35
[2021-04-12 23:51] LABS: Add Manual Diff / Slide Review NO; Basophils Absolute Auto 0 /uL (0-100); Basophils Percent Auto 0.8 % (0-2); Eosinophils Absolute Auto 200 /uL (0-450); Eosinophils Percent Auto 4.2 % (2-4); Hematocrit 32.3 % (36-46); Hemoglobin 10.5 g/dL (12.0-16.0); Lymphocytes Absolute Auto 1900 /uL (1100-4500); Lymphocytes Percent Auto 35.6 % (25-40); Mean Corpuscular HGB Conc 32.4 % (30-36); Mean Corpuscular Hemoglobin 29.2 PG (26-34); Mean Corpuscular Volume 90.1 fL (80-100); Monocytes Absolute Auto 600 /uL (0-900); Monocytes Percent Auto 10.8 % (3-14); Neutrophils Absolute Auto 2600 /uL (1500-7000); Neutrophils Percent Auto 48.6 % (50-75); Platelet Count 263 X10^3/uL (150-400); Red Blood Cell Count 3.59 X10^6/uL (4.0-5.2); Red Cell Distribution Width 23.7 % (11.6-14.8); White Blood Cell Count 5.3 X10^3/uL (4.5-11.0)
[2021-04-12 23:56] LABS: Alanine Aminotransferase 14 IU/L (<35); Alkaline Phosphatase 109 U/L (38-126); Aspartate Aminotransferase 32 IU/L (14-36); BUN Creatinine Ratio 26.7 (6-22); Bilirubin Total 0.4 mg/dL (0.2-1.3); Blood Urea Nitrogen 16 mg/dL (7-17); Calcium 9.4 mg/dL (8.4-10.2); Carbon Dioxide 25 mmol/L (22-32); Chloride 108 mmol/L (98-107); Creatine Kinase 65 U/L (30-135); Estimated Glomerular Filt Rate > 60.0 mL/min (>60); Globulin 4.2 g/dL (1.7-4.1); Glucose 120 mg/dL (80-110); HEMOLYSIS < 15 (0-50); Lipase 136 U/L (23-300); Potassium 4.1 mmol/L (3.4-5.1); Sodium 141 mmol/L (137-145); Total Protein 8.2 g/dL (6.3-8.2)
[2021-04-13] VITALS (13 sets, daily range): BP systolic 155–182; BP diastolic 95–111; PULSE 84–113; RESP 15–39; TEMP 36.4; O2SAT 91–99; BMI 22.6
[2021-04-13 00:08] LABS: NT-proBNP (BNP-Adult 18+) 425 pg/mL (<125); Troponin I < 0.012 ng/mL (0.01-0.034)
[2021-04-13 00:11] LABS: Anisocytosis 2+
[2021-04-13] MEDS: SODIUM CHLORIDE 0.9% 1,000 ML 125 ML IV (00:39)
--- NOTE | 2021-04-13 00:40 | DI.CT.S_ITS ---
PROCEDURE: CT ABDOMEN PELVIS W CON INDICATIONS: Periportal air seen on chest CT TECHNIQUE: After the administration of IV contrast, axial sections were acquired from the lung bases to the pubic symphysis. Coronal and sagittal reformats were performed. For radiation dose reduction, the following was used: automated exposure control, adjustment of mA and/or kV according to patient size. COMPARISON: [facility], CT, CT ABDOMEN W CON, 08/09/2019, 14:20. [facility], CT, CT ANGIO CHEST PE PROTOCOL, 04/13/2021, 0:06. [facility], US, US ABDOMEN COMPLETE, 08/20/2020, 11:08. [facility], CT, CT ABDOMEN PELVIS W CON, 06/28/2020, 17:45. FINDINGS: Image quality: Excellent. Lung bases: Small bilateral pleural effusions are seen at the lung bases. Heart: There is a moderate pericardial effusion. ABDOMEN: Liver: The previously seen potential small bubbles of gas within the central liver are not seen on the current study. Adjacent to the falciform ligament, there is an enlarging low-density mass seen now measures 3 cm, which is attributed to worsening metastatic disease. Prominent periportal edema can be seen. The portal vein appears normal, with normal enhancement. Gallbladder: The gallbladder appears collapsed on the current study. Biliary ducts: Unremarkable. Pancreas: Unremarkable. Spleen: Unremarkable. Adrenal Glands: Unremarkable. Kidneys and Ureters: There is a partially exophytic mass seen along the anterior aspect of the left kidney that measures up to 4.4 cm and demonstrates irregularity and decreased enhancement. This is similar to the prior examination. Stomach and Bowel: Stomach, small bowel loops, and colon are unremarkable. There is thickening of the omentum seen, with numerous irregular nodules along the peritoneal surfaces, including within the presacral region. A worsening cystic and solid nodule can be seen immediately inferior to the spleen, as on series 4, image 24 that measures at least 2.4 cm. A left lower quadrant colostomy can be seen. A normal appendix is incidentally noted. Peritoneum: Abnormal fluid can be seen within the peritoneal cavity, with apparent loculation of fluid adjacent to the stomach, as well as a focus of loculated fluid within the right mid abdomen, as on series 2, image 41. No free air can be seen. Ventral Wall: No hernia. Abdominal Nodes: No retroperitoneal or mesenteric adenopathy by size criteria. Vessels: Aorta and inferior vena cava are normal in size. PELVIS: Pelvic Organs: Status post hysterectomy. Pelvic clips can be seen. Bladder: Unremarkable. Pelvic Nodes: No enlarged lymph nodes. Miscellaneous: No inguinal hernias are seen. Bones: Mild dextroconvex scoliotic curvature is noted. Age-appropriate bony degenerative changes are seen. Grade 1 L4-5 anterolisthesis is seen, with focal degenerative change. IMPRESSION: No bubbles of gas can now be seen within the central liver. The previously seen appearance may be related to artifact. Worsening metastatic disease to the liver. Relatively prominent periportal edema is seen, which is nonspecific, yet can be seen in patients with hepatitis. There is abnormal intraperitoneal fluid seen with locules within the upper abdomen, primarily adjacent to the stomach. There is overall worsening of cystic and solid lesions along the peritoneal surfaces. This is attributed to worsening peritoneal metastatic disease in this patient with known ovarian cancer. Presumed neoplastic mass along the anterior aspect of the left kidney, stable. Incidental note is made of: Small bilateral pleural effusions Moderate pericardial effusion Normal appendix Left lower quadrant colostomy Hysterectomy Focal L4-L5 degenerative change Dextroconvex scoliotic curvature Dictated by: Jose Fallon M.D. on 04/13/2021 at 0:11 Approved by: Jose Fallon M.D. on 04/13/2021 at 0:21
--- NOTE | 2021-04-13 06:17 | P.HP_ITS ---
History of Present Illness History of Present Illness Chief complaint: sob Narrative: Ms. Garcia is a 70W with PMH of metastatic ovarian cancer to liver and peritoneum, asthma, left kidney mass, exlap in 2019 with BSO, omenectomy and colostomy who presents with shortness of breath. She states on she last had her chemotherapy, Avastin. She had no shortness of breath. Her shortness of breath began Thursday. She noted it was worse with lying flat. She had no fevers, no cough, no pleghm production. She had no chest pain. She noted no leg swelling. Of note she has been treated for her metastatic ovarian cancer since 2019 on multiple different medications. She continues on avastin, she recently had pemetrexed stopped due to side effects. She has discussed hospice with them previously. In the ED workup was done, she was noted to be tachypneic, tachycardic, hypertensive, and hypoxemic. She was placed on oxygen. She was ordered for IV fluids. Labs were notable for WBC 5.3, hgb 10.3, creatinine 0.60, troponin negative, BNP 425. CTA of her chest and CT abdomen/pelvis were done and negative for pulmonary embolism, small bilateral pleural effusions, and moderte pericardial effusion which was worse from prior CT. She was noted to have moderate ascites as well, worsening liver mets, worsening peritoneal mets, stable left kidney mass. She was admitted for further treatment. Patient History Medical History Asthma Double vision Ovarian cancer Renal cell carcinoma Tubal ligation evaluation Surgical History H/O breast biopsy Family & Social History Social History: household members spouse Safety & Behavioral: Feels Safe in Current Yes Environment Tobacco & Substance use: Smoking Status Never smoker alcohol intake never Substance Use Type does not use Meds Home Medications and Allergies Home Medications Medication Instructions Recorded Confirmed Type albuterol sulfate 90 mcg/actuation 2 puff INHALATION Q4H PRN 06/23/18 04/13/21 History aerosol inhaler (Ventolin HFA) acetaminophen 500 mg capsule 500 mg PO Q6H PRN 09/24/18 03/21/21 History sertraline 100 mg tablet 200 mg PO DAILY 09/24/18 04/13/21 History fluticasone propionate 110 1 puff INHALATION BID 10/28/18 03/21/21 History mcg/actuation HFA aerosol inhaler ondansetron HCl 8 mg tablet 8 mg PO BID-TID PRN #20 tab 12/23/18 03/21/21 Rx (Zofran) ibuprofen 600 mg tablet 600 mg PO Q6H PRN 03/01/19 03/21/21 History lorazepam 0.5 mg tablet 0.25 - 0.5 mg PO TID PRN 03/01/19 04/13/21 History melatonin 5 mg tablet 5 mg PO BEDTIME PRN 03/01/19 03/21/21 History oxycodone 5 mg tablet 5 mg PO Q6H PRN #100 tab 10/04/20 03/21/21 Rx folic acid 1 mg tablet 1 mg PO DAILY #30 tab 01/17/21 03/21/21 Rx pantoprazole 40 mg tablet,delayed 40 mg PO BID 01/17/21 04/13/21 History release dexamethasone 4 mg tablet 4 mg PO BID #36 tab 02/07/21 03/21/21 Rx ondansetron HCl 4 mg tablet 4 mg PO Q6H PRN #5 tab 03/02/21 03/21/21 Rx (Zofran) oxycodone 10 mg tablet,crush 10 mg PO Q12H #60 tab 03/07/21 03/21/21 Rx resistant,extended release 12 hr (OxyContin) olanzapine 5 mg tablet 5 mg PO DAILY 03/21/21 04/13/21 History metoclopramide HCl 10 mg tablet 10 mg PO Q6H PRN 04/13/21 04/13/21 History Allergies Allergy/AdvReac Type Severity Reaction Status Date / Time venlafaxine [From Effexor] AdvReac Intermediate Difficulty Verified 06/23/18 14:57 Breathing bupropion AdvReac Unknown Anxiety Verified 06/23/18 14:57 escitalopram [From Lexapro] AdvReac Unknown Verified 06/23/18 14:54 fluoxetine AdvReac Unknown Verified 06/23/18 14:57 mirtazapine AdvReac Unknown Verified 06/23/18 14:56 Review of Systems Review of Systems Narrative: 14 systems reviewed and negative aside from what is noted in HPI Exam Vital Signs (past 8 hours): - 04/12/21 23:20 04/12/21 23:26 04/12/21 23:30 Temperature 98.7 F Pulse Rate 121 H 104 H Respiratory Rate 28 H 35 H Blood Pressure 182/107 H 185/106 H 173/102 H Pulse Oximetry 91 99 04/13/21 00:00 04/13/21 00:30 04/13/21 00:41 Temperature Pulse Rate 101 H 100 H 96 H Respiratory Rate 39 H 36 H 39 H Blood Pressure 180/101 H 170/111 H Pulse Oximetry 98 97 97 04/13/21 01:05 04/13/21 01:30 04/13/21 02:00 Temperature Pulse Rate 105 H 91 H 87 Respiratory Rate 27 H 36 H 28 H Blood Pressure Pulse Oximetry 98 98 98 04/13/21 02:30 04/13/21 02:42 04/13/21 03:01 Temperature Pulse Rate 84 89 113 H Respiratory Rate 33 H 24 21 Blood Pressure 173/100 H Pulse Oximetry 98 99 91 04/13/21 03:02 04/13/21 05:00 Temperature 97.5 F L Pulse Rate 105 H 94 H Respiratory Rate 27 H 18 Blood Pressure 182/95 H 166/106 H Pulse Oximetry 96 99 Oxygen Delivery Method Nasal Cannula Oxygen Flow Rate 2 Narrative Exam Narrative: GEN: no acute distress HEENT: PERRL, moist mucous membranes NECK: no JVD, trachea midline PULM: clear bilaterally except for decreased breath sounds bilaterally CV: regular rate and rhythm with no murmurs, port in chest ABD: soft, nontender, nondistended, no organomegaly, normal bowel sounds, colost vinh present EXT: warm and well perfused, with no edema SKIN: no rashes noted NEURO: moving all extremities, no focal deficits noted PSYCH: pleasant, cooperative Objective Labs Result Diagrams: 04/12/21 23:30 04/12/21 23:30 Labs: Laboratory Results - last 24 hr 04/12/21 04/12/21 04/12/21 23:15 23:30 23:30 WBC 5.3 RBC 3.59 L Hgb 10.5 L Hct 32.3 L MCV 90.1 MCH 29.2 MCHC 32.4 RDW 23.7 H Plt Count 263 Neut % (Auto) 48.6 L Lymph % (Auto) 35.6 [place] % (Auto) 10.8 Eos % (Auto) 4.2 H Baso % (Auto) 0.8 Neut # (Auto) 2600 Lymph # (Auto) 1900 [place] # (Auto) 600 Eos # (Auto) 200 Baso # (Auto) 0 RBC Morphology See below Anisocytosis 2+ H Sodium 141 Potassium 4.1 Chloride 108 H Carbon Dioxide 25 BUN 16 Creatinine 0.60 Estimated GFR > 60.0 BUN/Creatinine Ratio 26.7 H Glucose 120 H Calcium 9.4 Total Bilirubin 0.4 AST 32 ALT 14 Alkaline Phosphatase 109 Total Creatine Kinase 65 CK-MB (CK-2) TNP CK-MB (CK-2) Rel Index TNP Troponin I < 0.012 NT-Pro-B Natriuret Pep 425 H Total Protein 8.2 Albumin 4.0 Globulin 4.2 H Albumin/Globulin Ratio 1.0 Lipase 136 SARS-CoV-2 (PCR) Negative Assessment & Plan Assessment & Plan narrative: 1. Acute hypoxemic respiratory failure -likely multifactorial from progressing cancer from anasarca with pleural effusion, pericardial effusion, and ascites noted -no evidence of infection, CTA negative for PE, no wheezing means unlikely asthma, unlikely this is CHF, troponin negative unlikely ACS -discussed paracentesis, throacentesis, and pericardiocentesis at length and advised that as these effusions are likely secondary to a progressing malignancy that fluid removal will likely not have very long lasting benefit -can consider ECHO for further eval of pericardial effusion, but patient currently unsure if would want to proceed -continue on oxygen for now -could consider lasix, but would be hesitant to diurese with pericardial effusion -hospice referral ordered 2. Metastatic ovarian cancer with liver mets, peritoneal mets s/p colostomy -per latest CT has progressive liver and peritoneal mets -recently stopped pemetrexed -per oncology notes hospice has been discussed with patient 3. Asthma -stable, patient says her current shortness of breath is not similar to her previous asthma exacerbations, she is not currently wheezing -order PRN nebs 4. Left renal mass -has had active surveillance showing no change in mass 5. Anemia -mild -likely secondary to chronic disease -no indication for transfusion currently CODE: DNR Proxy: El Garcia, spouse DVT ppx: heparin sc Dispo: Patient is admitted with hypoxemic respiratory failure, may opt for paracentesis or thoracentesis, may opt for home with hospice I have utilized all available immediate resources to obtain, update, or review the patient's current medications. Time Spent With Patient Critical Care time: I spent a total of [] minutes of critical care time on this patient's care today; this time is exclusive of procedural time. Quality MIPS - Admit I confirm the patient?s Advance Care Plan is present, Code status is documented, Surrogate decision maker is in patient?s record [If Yes, STOP here]: Yes
--- NOTE | 2021-04-13 09:24 | PC.NURSE ---
Addendum entered by Arianna Bee R.N. 04/13/21 11:45: Port flushed with NS and Heparin, then deaccessed. dc instructions reviewed with pt and . This RN answered 's question about effusions and ascites; and hospice. pt dc'd via wheelchair Original Note: Hospice: pt states, I knew this time was coming. I have been done with (cancer) treatment for a while now. Doctor says they can drain the fluid from my lungs and belly but it'll come back and there are risks with it. I'm not sure if I should con't with Avastin. And I'll need oxygen when I go home. Pt reports hard to eat when I can't breath very well. I am hungry
--- NOTE | 2021-04-13 09:50 | PM.DS.1 ---
History of Present Illness History of Present Illness Chief complaint: sob Narrative: Ms. Garcia is a 70W with PMH of metastatic ovarian cancer to liver and peritoneum, asthma, left kidney mass, exlap in 2019 with BSO, omenectomy and colostomy who presents with shortness of breath. She states on she last had her chemotherapy, Avastin. She had no shortness of breath. Her shortness of breath began Thursday. She noted it was worse with lying flat. She had no fevers, no cough, no pleghm production. She had no chest pain. She noted no leg swelling. Of note she has been treated for her metastatic ovarian cancer since 2019 on multiple different medications. She continues on avastin, she recently had pemetrexed stopped due to side effects. She has discussed hospice with them previously. In the ED workup was done, she was noted to be tachypneic, tachycardic, hypertensive, and hypoxemic. She was placed on oxygen. She was ordered for IV fluids. Labs were notable for WBC 5.3, hgb 10.3, creatinine 0.60, troponin negative, BNP 425. CTA of her chest and CT abdomen/pelvis were done and negative for pulmonary embolism, small bilateral pleural effusions, and moderte pericardial effusion which was worse from prior CT. She was noted to have moderate ascites as well, worsening liver mets, worsening peritoneal mets, stable left kidney mass. She was admitted for further treatment. Discharge Providers Provider Date of admission: 04/13/21 04:34 Discharge Date: 04/13/21 Primary care physician: Niraj Cantu MD Consults: 04/13/21 06:15 Consult to Hospice Referral Routine Comment: 04/13/21 06:19 Consult to Dietitian, Adult Routine Comment: Ovarian cancer with mets Reason For Exam: weight loss 04/13/21 09:41 Consult to Respiratory Therapy Evaluate & Treat Comment: please eval for home oxygen Physician Instructions: Evaluate and treat Discharge provider: Matteo Zimmerman MD Summary Hospital Course Discharge Diagnosis: 1. Acute hypoxemic respiratory failure 2. Mestatic ovarian cancer with liver, peritoneal mets 3. s/p colostomy 4. Asthma 5. Renal mass 6. Anemia Hospital Course: Ms. Garcia was admitted with shortness of breath, she has a history of asthma, but said her asthma symptoms are different, she had no wheezes this time. She had no chest pain. Imaging showed anasarca with peritoneal, pleural, and pericardial fluid that was increased from prior. She had worsening cancer burden in her liver and peritoneum. Discussion was had with her about the possible symptomatic options such as paracentesis, thoracentesis, and pericardiotensis. It was explained as the etiology is the cancer, drainage would likely only be effective for symptoms for a very short period, as the cancer was progressing. She decided she wanted to go home. She will be evaluated for oxygen by respiratory therapy. She is referred to hospice. Lasix was avoided due to her pericardial effusion, as wanted to avoid increasing the risk of tamponade. Discharge time: 35 minutes Exam Vital Signs (past 8 hours): - 04/13/21 02:00 04/13/21 02:30 04/13/21 02:42 Temperature Pulse Rate 87 84 89 Respiratory Rate 28 H 33 H 24 Blood Pressure 173/100 H Pulse Oximetry 98 98 99 04/13/21 03:01 04/13/21 03:02 04/13/21 05:00 Temperature 97.5 F L Pulse Rate 113 H 105 H 94 H Respiratory Rate 21 27 H 18 Blood Pressure 182/95 H 166/106 H Pulse Oximetry 91 96 99 Oxygen Delivery Method Nasal Cannula Oxygen Flow Rate 2 Narrative Exam Narrative: GEN: no acute distress HEENT: PERRL, moist mucous membranes NECK: no JVD, trachea midline PULM: clear bilaterally except for decreased breath sounds bilaterally CV: regular rate and rhythm with no murmurs, port in chest ABD: soft, nontender, nondistended, no organomegaly, normal bowel sounds, colostomy present EXT: warm and well perfused, with no edema SKIN: no rashes noted NEURO: moving all extremities, no focal deficits noted PSYCH: pleasant, cooperative Objective Labs Result Diagrams: 04/12/21 23:30 04/12/21 23:30 Labs: Laboratory Results - last 24 hr 04/12/21 04/12/21 04/12/21 23:15 23:30 23:30 WBC 5.3 RBC 3.59 L Hgb 10.5 L Hct 32.3 L MCV 90.1 MCH 29.2 MCHC 32.4 RDW 23.7 H Plt Count 263 Neut % (Auto) 48.6 L Lymph % (Auto) 35.6 [place] % (Auto) 10.8 Eos % (Auto) 4.2 H Baso % (Auto) 0.8 Neut # (Auto) 2600 Lymph # (Auto) 1900 [place] # (Auto) 600 Eos # (Auto) 200 Baso # (Auto) 0 RBC Morphology See below Anisocytosis 2+ H Sodium 141 Potassium 4.1 Chloride 108 H Carbon Dioxide 25 BUN 16 Creatinine 0.60 Estimated GFR > 60.0 BUN/Creatinine Ratio 26.7 H Glucose 120 H Calcium 9.4 Total Bilirubin 0.4 AST 32 ALT 14 Alkaline Phosphatase 109 Total Creatine Kinase 65 CK-MB (CK-2) TNP CK-MB (CK-2) Rel Index TNP Troponin I < 0.012 NT-Pro-B Natriuret Pep 425 H Total Protein 8.2 Albumin 4.0 Globulin 4.2 H Albumin/Globulin Ratio 1.0 Lipase 136 Nasal Screen MRSA (PCR) SARS-CoV-2 (PCR) Negative 04/13/21 05:00 WBC RBC Hgb Hct MCV MCH MCHC RDW Plt Count Neut % (Auto) Lymph % (Auto) [place] % (Auto) Eos % (Auto) Baso % (Auto) Neut # (Auto) Lymph # (Auto) [place] # (Auto) Eos # (Auto) Baso # (Auto) RBC Morphology Anisocytosis Sodium Potassium Chloride Carbon Dioxide BUN Creatinine Estimated GFR BUN/Creatinine Ratio Glucose Calcium Total Bilirubin AST ALT Alkaline Phosphatase Total Creatine Kinase CK-MB (CK-2) CK-MB (CK-2) Rel Index Troponin I NT-Pro-B Natriuret Pep Total Protein Albumin Globulin Albumin/Globulin Ratio Lipase Nasal Screen MRSA (PCR) Negative for mrsa SARS-CoV-2 (PCR) [facility] [place] Medical History Asthma Double vision Ovarian cancer Renal cell carcinoma Tubal ligation evaluation Surgical History H/O breast biopsy Social History marital status: household members: spouse Smoking Status: Never smoker alcohol intake: never substance use type: does not use Discharge Plan Discharge Plan Patient Disposition: Hospice - Home Provider Discharge Comment: Ms. Garcia came to the hospital with shortness of breath. She was found to have low oxygen levels. She was found to have growing cancer in her liver and abdomen. She fluid building up in her abdomen, around her lung, and around her heart from the cancer. Discussion was had about her goals, and she wanted to go home. She was agreeable to hospice referral. Due to her shortness of breath she will be evaluated for oxygen at home. Discharge orders & Medications Discharge Orders: Discharge (Order); Ordered 04/13/21 Ordered By: Matteo Zimmerman Prescriptions: Continued sertraline 100 mg tablet 200 mg PO DAILY RF: 0 acetaminophen 500 mg Capsule 500 mg PO Q6H PRN (Reason: PAIN) RF: 0 ibuprofen 600 mg tablet 600 mg PO Q6H PRN (Reason: pain) RF: 0 lorazepam 0.5 mg tablet 0.25 - 0.5 mg PO TID PRN (Reason: Anxiety) RF: 0 melatonin 5 mg Tablet 5 mg PO BEDTIME PRN (Reason: Sleep) RF: 0 ondansetron HCl [Zofran] 4 mg tablet 4 mg PO Q6H PRN (Reason: nausea and vomiting) Qty: 5 RF: 0 albuterol sulfate [Ventolin HFA] 90 mcg/actuation Hfa Aerosol Inhaler 2 puff INHALATION Q4H PRN (Reason: Shortness Of Breath) RF: 0 ondansetron HCl [Zofran] 8 mg Tablet 8 mg PO BID-TID PRN (Reason: Nausea) Qty: 20 RF: 3 oxycodone 5 mg tablet 5 mg PO Q6H PRN (Reason: pain) Qty: 100 RF: 0 pantoprazole 40 mg Tablet,Delayed Release (Dr/Ec) 40 mg PO BID RF: 0 folic acid 1 mg Tablet 1 mg PO DAILY Qty: 30 RF: 5 dexamethasone 4 mg Tablet 4 mg PO BID Qty: 36 RF: 0 oxycodone [OxyContin] 10 mg Tablet,Oral Only,Ext.Rel.12 Hr 10 mg PO Q12H Qty: 60 RF: 0 olanzapine 5 mg Tablet 5 mg PO DAILY RF: 0 fluticasone propionate 110 mcg/actuation HFA aerosol inhaler 1 puff Inhalation BID RF: 0 metoclopramide HCl 10 mg Tablet 10 mg PO Q6H PRN (Reason: Nausea) RF: 0 Follow up/Referrals: Niraj Cantu MD [Primary Care Provider] - Discharge Data Primary Care Provider: Niraj Cantu V Attending Provider: Matteo Zimmerman MIPS - DC The patient has current or prior documentation of left ventricular ejection fraction (LVEF) less than 40%, or moderate or severely depressed left ventricular systolic function.: No
[2021-04-13] MEDS: LORazepam 0.5 MG TABLET PO (09:51)
--- NOTE | 2021-04-13 12:16 | CM.DANOTE ---
DCP: Case received, EMR reviewed and met with patient. Introduced self and role. Was able to obtain information regarding patient's baseline activity status at home, as well as some of her health information. DCP assessment completed with information currently available. Patient is a 70 year old female who admitted early this morning to the care of the hospitalist team. PCP: Dr. Cantu. Payer: confirmed: Medicare/[employer]. Patient came to the hospital via private vehicle secondary to having shortness of breath. Patient has history of asthma, as well as ovarian cancer. She is undergoing current treatment at [facility], and her last treatment was . Patient noted small bilateral pleural effusion, and pericardial effusion. She is also noted to have liver metastasis with moderate ascites. She has a colostomy and omenectomy. Due to her prognosis, hospice has been discussed by provider here at the hospital, since there are no further treatments that can assist with her diagnosis. Met with patient in her room. Spouse, El, was also at bedside. Patient is alert and oriented. Confirmed that they both reside in [place], Dr. Cantu is her primary doctor. She is independent at home per her baseline. Asked patient if she was familiar with hospice. She indicated, she knows where they are located, but would like further information on their services. Gave patient a brochure and explained that [facility] the agency that serves this area. Let her know that this is covered by her Medicare, and that they cover having a nurse coming out to see her, depends upon her needs as to how frequent the visits are. Also explained that the team consists of spiritual counselors, as well as social workers and bath aide. Let her know that services cover hospital bed, oxygen, bedside table, as well as briefs, and other toiletries. Let her know that pain meds and comfort meds are covered. She verbalized understanding. Let her know that this field case manager will contact [facility] today, and she should be expecting a phone call from them with an informational visit via phone, and nursing visits will occur after. P: Patient is to discharge home today with [facility]. Will fax them information on patient and will follow up with a phone call. Lupe North RN/Information Services Consultant Discharge Planning/Care Management CM Discharge Assessment Start: 04/13/21 12:14 Freq: Status: Active Protocol: Document 04/13/21 12:14 (Rec: 04/13/21 12:16 [id number]) Discharge Planning Assessment Assigned Lever Tender Lupe North RN/Information Services Consultant Advance Directives? Yes Advance Directives on File No History Provided By Patient,Medical Record Prior Living Arrangements House Household Members spouse Type of transporation used prior to Drives own vehicle admit Independent with ADL's Yes Is patient alert and oriented? Yes Needs Assistance With Home Chores / Shopping Caregiver for Another No Comment Patient will be discharging home with [facility] . Barriers to Discharge No Discharge Plan Hospice Transportation Arrangement Spouse Referrals Initiated Other Additional Comment [facility] Has Agency SNF been contacted Yes Comment Will contact hospice today. Whiteboard Updated in Patient Room with Yes name and ext. # of Lever Tender Review Status In Process Next Review Type Continued Stay Review
--- NOTE | 2021-04-19 09:32 | PC.NURSE ---
James from [facility] called stating that she could not reach medical records and pt was in her office for follow up. D/C summary sent to her @ [phone].
== END 2021-04-13 11:45 | disposition hospice, home (50) ==
LOC: ED 04-13 04:30 → ICU 04-13 07:54 → AC 04-15 10:25 → ICU 04-15 15:42
PROVIDERS: Admitting Provider Internal Medicine; Emergency Provider Emergency Medicine; PCP Internal Medicine; Referring Provider Emergency Medicine; Visit Provider Internal Medicine
DX: J96.01 Acute respiratory failure with hypoxia (principal); C56.9 Malignant neoplasm of unspecified ovary; C78.7 Secondary malignant neoplasm of liver and intrahepatic bile duct; C78.6 Secondary malignant neoplasm of retroperitoneum and peritoneum; J45.909 Unspecified asthma, uncomplicated; D64.9 Anemia, unspecified; N28.89 Other specified disorders of kidney and ureter; Z93.3 Colostomy status; Z20.822 Contact with and (suspected) exposure to COVID-19
CPT/HCPCS: 36415; 71275; 74177; 80053; 82550; 83690; 83880; 84484; 85025; 87635; 87797; 94618; 96360; 96361; 99285; C9803; G0378; Q9967

== ENCOUNTER 2021-09-29 15:45 | Emergency (ER) | payer MEDICARE, OTHER, SELFPAY ==
[2021-04-13 05:55] VITALS: BMI 22.6
[2021-09-29 15:56] VITALS: BP 153/101; PULSE 116; RESP 24; O2SAT 97
[2021-09-29] MEDS: ONDANSETRON 4 MG/2 ML INJ (16:12)
[2021-09-29 16:27] LABS: INR 1.3 (0.9-1.3); Prothrombin Time 14.4 SECONDS (10.1-12.7)
[2021-09-29 16:29] LABS: Add Manual Diff / Slide Review NO; Basophils Absolute Auto 0 /uL (0-100); Basophils Percent Auto 0.2 % (0-2); Eosinophils Absolute Auto 100 /uL (0-450); Eosinophils Percent Auto 1.3 % (2-4); Hematocrit 42.8 % (36-46); Hemoglobin 14.4 g/dL (12.0-16.0); Lymphocytes Absolute Auto 1500 /uL (1100-4500); Lymphocytes Percent Auto 18.3 % (25-40); Mean Corpuscular HGB Conc 33.5 % (30-36); Mean Corpuscular Hemoglobin 29.8 PG (26-34); Monocytes Absolute Auto 500 /uL (0-900); Monocytes Percent Auto 5.6 % (3-14); Neutrophils Absolute Auto 6100 /uL (1500-7000); Neutrophils Percent Auto 74.6 % (50-75); Platelet Count 281 X10^3/uL (150-400); Red Blood Cell Count 4.81 X10^6/uL (4.0-5.2); Red Cell Distribution Width 17.1 % (11.6-14.8); White Blood Cell Count 8.2 X10^3/uL (4.5-11.0)
[2021-09-29 16:32] LABS: Albumin 4.8 g/dL (3.5-5.0); Alkaline Phosphatase 122 U/L (38-126); Aspartate Aminotransferase 37 IU/L (14-36); Bilirubin Total 0.9 mg/dL (0.2-1.3); Blood Urea Nitrogen 30 mg/dL (7-17); Calcium 10.8 mg/dL (8.4-10.2); Carbon Dioxide 25 mmol/L (22-32); Chloride 100 mmol/L (98-107); Estimated Glomerular Filt Rate 50.7 mL/min (>60); Glucose 102 mg/dL (80-110); HEMOLYSIS < 15 (0-50); Potassium 4.1 mmol/L (3.4-5.1); Sodium 139 mmol/L (137-145)
[2021-09-29 16:44] LABS: Alanine Aminotransferase 22 IU/L (<35)
[2021-09-29 16:47] LABS: Total Protein 9.8 g/dL (6.3-8.2)
[2021-09-29 17:25] VITALS: BP 134/94; PULSE 95; RESP 16; O2SAT 98
--- NOTE | 2021-09-29 17:38 | ED.ABDPAIN ---
HPI - Abdominal Pain <Wilton Min PA-C - Last Filed: 09/29/21 19:49> General Chief Complaint: Abdominal Pain Stated Complaint: Difficulty swallowing, pain swallowing Time Seen by Provider: 09/29/21 17:30 Source: patient Mode of arrival: Ambulatory History of Present Illness HPI narrative: Patient is a 71-year-old female presents to the ED reporting increased difficulty with swallowing and pain located in the center of her chest. She has a history of ovarian cancer and is currently under chemo for the past 3 years. She has had a rapid decline in her caloric intake over the past month. She reports that she is only able to drink 1 boost a day and limited amount of food. Patient states that once the pain started does not let up for quite some time. She describes the pain to be a fluttering sensation in the center of her chest that radiates up and downward along her soft a PITO line. She denies any shortness of breath or chest pain. She denies any vomiting or diarrhea although she does have ongoing nausea has resolved probably likely of her chemo therapy. Patient denies any abdominal discomfort bloating or pain. Related Data Home Medications Medication Instructions Recorded Confirmed albuterol sulfate 90 mcg/actuation 2 puff INHALATION Q4H PRN 06/23/18 09/05/21 aerosol inhaler (Ventolin HFA) acetaminophen 500 mg capsule 500 mg PO Q6H PRN 09/24/18 09/05/21 sertraline 100 mg tablet 200 mg PO DAILY 09/24/18 09/05/21 fluticasone propionate 110 1 puff INHALATION BID 10/28/18 09/05/21 mcg/actuation HFA aerosol inhaler ibuprofen 600 mg tablet 600 mg PO Q6H PRN 03/01/19 09/05/21 lorazepam 0.5 mg tablet 0.25 - 0.5 mg PO TID PRN 03/01/19 09/05/21 melatonin 5 mg tablet 5 mg PO BEDTIME PRN 03/01/19 09/05/21 pantoprazole 40 mg tablet,delayed 40 mg PO BID 01/17/21 09/05/21 release olanzapine 5 mg tablet 5 mg PO DAILY 03/21/21 09/05/21 metoclopramide HCl 10 mg tablet 10 mg PO Q6H PRN 04/13/21 09/05/21 Previous Rx's Medication Instructions Recorded ondansetron HCl 8 mg tablet 8 mg PO BID-TID PRN #20 tab 12/23/18 (Zofran) folic acid 1 mg tablet 1 mg PO DAILY #30 tab 01/17/21 dexamethasone 4 mg tablet 4 mg PO BID #36 tab 02/07/21 ondansetron HCl 4 mg tablet 4 mg PO Q6H PRN #5 tab 03/02/21 (Zofran) oxycodone 10 mg tablet,crush 10 mg PO Q12H #60 tab 03/07/21 resistant,extended release 12 hr (OxyContin) nystatin 100,000 unit/mL oral 100,000 unit PO QID #100 ml 08/15/21 suspension oxycodone 5 mg tablet 5 mg PO Q6H PRN #100 tab 08/15/21 Allergies Allergy/AdvReac Type Severity Reaction Status Date / Time venlafaxine [From Effexor] AdvReac Intermediate Difficulty Verified 06/23/18 14:57 Breathing bupropion AdvReac Unknown Anxiety Verified 06/23/18 14:57 escitalopram [From Lexapro] AdvReac Unknown Verified 06/23/18 14:54 fluoxetine AdvReac Unknown Verified 06/23/18 14:57 mirtazapine AdvReac Unknown Verified 06/23/18 14:56 Review of Systems <Wilton Min PA-C - Last Filed: 09/29/21 19:49> Review of Systems ROS Unobtainable: All systems reviewed & are unremarkable except as noted in HPI and below Constitutional Constitutional: Denies chills, Denies fatigue, Denies fever(s), Denies frequent falls, Denies lethargy and Denies weakness Eyes Eyes: Denies change in vision, Denies eye discharge, Denies irritation and Denies loss of vision ENT Ears, Nose, Mouth, and Throat: Denies change in voice, Reports dysphagia, Denies dizziness, Denies neck pain, Denies sore throat and Denies throat swelling Cardiovascular Cardiovascular: Denies chest pain, Denies irregular heart rhythm, Denies lightheadedness, Denies palpitations, Denies dyspnea, Denies dyspnea on exertion and Denies orthopnea Respiratory Respiratory: Denies cough, Denies dyspnea, Denies dyspnea on exertion and Denies wheezing Gastrointestinal Gastrointestinal: Denies abdominal pain, Denies change in bowel habits, Reports dysphagia, Denies diarrhea, Denies nausea and Denies vomiting Genitourinary Genitourinary: Denies hematuria, Denies flank pain, Denies urinary incontinence and Denies urinary urgency Musculoskeletal Musculoskeletal: Denies back pain, Denies muscle weakness, Denies neck pain, Denies numbness and Denies tingling Integumentary/Breasts Skin/Breast: Denies pruritus, Denies erythema, Denies rash and Denies wounds Neurologic Neurologic: Denies behavioral changes, Denies confusion, Denies dizziness, Denies frequent falls, Denies loss of vision, Denies numbness, Denies tingling and Denies weakness Psychiatric Psychiatric: Denies anxiety, Denies behavioral changes, Denies confusion, Denies depression, Denies homicidal ideation and Denies suicidal ideation Endocrine Endocrine: Denies fatigue, Denies flushing and Denies palpitations Hematologic/Lymphatic Hematologic/Lymphatic: Denies easy bruising Allergic/Immunologic Allergic/Immunologic: Denies urticaria, Denies throat swelling and Denies wheezing Patient History <Wilton Min PA-C - Last Filed: 09/29/21 19:49> Medical History Asthma Double vision Ovarian cancer Renal cell carcinoma Tubal ligation evaluation Surgical History H/O breast biopsy Social History marital status: household members: spouse Smoking Status: Never smoker alcohol intake: never substance use type: does not use Smoking Status: Never smoker alcohol intake frequency: 0-2 drinks per day Substance Use Type: does not use Exam <Wilton Min PA-C - Last Filed: 09/29/21 19:49> Initial Vital Signs Initial Vital Signs: Vital Signs Pulse Rate 116 H 09/29/21 15:56 Respiratory Rate 24 09/29/21 15:56 Blood Pressure 153/101 H 09/29/21 15:56 Pulse Oximetry 97 09/29/21 15:56 Const General: cooperative, comfortable and frail appearing Nutritional Appearance: malnourished and thin Orientation: Orientation [facility] Head: normal to inspection and normocephalic Ears: hearing grossly normal bilaterally and external ears normal Nose: external nose normal Face and sinus: normal facial exam Chest Chest: normal inspection of the chest and normal palpation of entire chest wall Resp Effort & Inspection: normal respiratory effort and able to speak in complete sentences Auscultation: clear to auscultation bilaterally Cardio Palpation: normal PMI Rate: regular rate Rhythm: regular rhythm Heart Sounds: S1 normal and S2 normal GI Inspection: normal to inspection Palpation: soft and no hepatosplenomegaly Percussion: normal to percussion Auscultation: normal bowel sounds Skin General: no rashes or lesions noted <DO Nate Thomason Last Filed: 09/30/21 03:03> Initial Vital Signs Initial Vital Signs: Vital Signs Pulse Rate 116 H 09/29/21 15:56 Respiratory Rate 24 09/29/21 15:56 Blood Pressure 153/101 H 09/29/21 15:56 Pulse Oximetry 97 09/29/21 15:56 Course <GUNJAN Hunter Last Filed: 09/29/21 19:49> Orders Ordered: ED Orders 09/29/21 18:04 CT chest wo con Stat Consultations Consultation #1: I contacted general surgery on-call spoke to her about what treatment options could be considered for the obstruction of the esophagus. A PEG tube could be a likely option as well as a esophageal stent. General surgeon said that the esophageal stent would require transfer to another facility. Vital Signs Vital signs: Vital Signs - 8 hr 09/29/21 19:58 Pulse Rate 87 Respiratory Rate 15 Blood Pressure 141/95 H Pulse Oximetry 98 <Tara Lai DO - Last Filed: 09/30/21 03:03> Orders Ordered: ED Orders 09/29/21 18:04 CT chest wo con Stat Vital Signs Vital signs: Vital Signs - 8 hr 09/29/21 19:58 Pulse Rate 87 Respiratory Rate 15 Blood Pressure 141/95 H Pulse Oximetry 98 MDM - Abdominal Pain <GUNJAN Hunter Last Filed: 09/29/21 19:49> Differential Diagnosis Differential diagnosis: Likely other Lab Data Result diagrams: 09/29/21 16:05 09/29/21 16:05 Labs: Lab Results 09/29/21 09/29/21 09/29/21 Range/Units 16:05 16:05 16:05 WBC 8.2 (4.5-11.0) X10^3/uL RBC 4.81 (4.0-5.2) X10^6/uL Hgb 14.4 (12.0-16.0) g/dL Hct 42.8 (36-46) % MCV 89.0 (80-100) fL MCH 29.8 (26-34) PG MCHC 33.5 (30-36) % RDW 17.1 H (11.6-14.8) % Plt Count 281 (150-400) X10^3/uL Neut % (Auto) 74.6 (50-75) % Lymph % (Auto) 18.3 L (25-40) % Rock % (Auto) 5.6 (3-14) % Eos % (Auto) 1.3 L (2-4) % Baso % (Auto) 0.2 (0-2) % Neut # (Auto) 6100 (8303-0712) /uL Lymph # (Auto) 1500 (3198-3345) /uL Rock # (Auto) 500 (0-900) /uL Eos # (Auto) 100 (0-450) /uL Baso # (Auto) 0 (0-100) /uL PT 14.4 H (10.1-12.7) SECONDS INR 1.3 (0.9-1.3) Sodium 139 (137-145) mmol/L Potassium 4.1 (3.4-5.1) mmol/L Chloride 100 (98-107) mmol/L Carbon Dioxide 25 (22-32) mmol/L BUN 30 H (7-17) mg/dL Creatinine 1.07 H (0.52-1.04) mg/dL Estimated GFR 50.7 L (>60) mL/min BUN/Creatinine Ratio 28.0 H (6-22) Glucose 102 (80-110) mg/dL Calcium 10.8 H (8.4-10.2) mg/dL Total Bilirubin 0.9 (0.2-1.3) mg/dL AST 37 H (14-36) IU/L ALT 22 (<35) IU/L Alkaline Phosphatase 122 (38-126) U/L Total Protein 9.8 H* (6.3-8.2) g/dL Albumin 4.8 (3.5-5.0) g/dL Globulin 5.0 H (1.7-4.1) g/dL Albumin/Globulin Ratio 1.0 (1.0-2.8) Imaging Data CT scan - chest: Radiologist's Impression: PROCEDURE:? CT CHEST WO CON ? INDICATIONS:? chest pain, difficulty swallowing, CA patient ? TECHNIQUE: Noncontrast 5 mm thick sections acquired from the pulmonary apices to the posterior costophrenic angles.? 1 mm lung window, 5 mm thick coronal and sagittal and 7 mm axial MIP reformats were then acquired.? For radiation dose reduction, the following was used:? automated exposure control, adjustment of mA and/or kV according to patient size.? ? COMPARISON:? [facility], CT, CT ANGIO CHEST PE PROTOCOL, 04/13/2021, 0:06. ? FINDINGS:? Image quality:? Excellent.? ? Lungs and pleura:? Chronic moderate size left and small right pleural effusions.? Associated atelectatic change.? Mild fissural thickening and septal thickening at the right lung base.? A small subpleural nodules in the right middle lobe and left lower lobe, stable. ? Mediastinum:? The esophagus is dilated and contains an air-fluid level.? Distally, there is circumferential esophageal wall thickening.? The heart size is normal and there is a small pericardial effusion.? The ascending aorta is aneurysmal measuring 4.5 cm in AP diameter, slightly enlarged, previously measured 4.3 cm.? Mild atherosclerotic calcification.? Central pulmonary arteries are normal size.? The branching great vessels have conventional anatomy.? No bulky mediastinal or hilar adenopathy.? Right IJ MediPort is in place.? ? Bones and chest wall:? Partially imaged thyroid appears normal.? No axillary or supraclavicular adenopathy.? Right IJ Port-A-Cath. ? Abdomen:? Fluid in the distended, partially imaged stomach.? There is perigastric loculated ascites anterior to the stomach, similar compared to the prior study.? There is linear and branching radiodensity in the visible left hepatic lobe, potentially treatment related change in the liver. ? IMPRESSION:? ? 1. Dilated fluid-filled esophagus with distal esophageal wall thickening.? This may be secondary to nonvisualized gastric outlet obstruction, treatment related esophagitis, or distal soft tissue mass in the esophagus. ? 2. Chronic bilateral pleural effusions, left larger than right without significant interval increase. ? 3. Ascending aorta aneurysm. ? 4. No new adenopathy in the chest.? ? ? Dictated by: Lesa Pennington M.D. on 09/29/2021 at 19:05 ? ? Approved by: Lesa Pennington M.D. on 09/29/2021 at 19:12?? MDM Narrative Medical decision making narrative: Patient was evaluated today for pain in the center of her chest and epigastric region that she experiences after eating. This has been going on for the last few days and she has not been able to consume very many calories as a result. CT scan shows evidence of a esophageal obstruction at the distal and that is likely a gastric outlet obstruction. After speaking with the patient she it would like to be discharged home consider her options and she will follow-up with her oncologist and make a decision at that point. In the meantime she will take small sips of protein supplements and liquids to maintain hydration and improve caloric intake. She will be discharged home and she can follow up in the ED if the symptoms worsened. <Tara Lai, DO - Last Filed: 09/30/21 03:03> Lab Data Labs: Lab Results 09/29/21 09/29/21 09/29/21 Range/Units 16:05 16:05 16:05 WBC 8.2 (4.5-11.0) X10^3/uL RBC 4.81 (4.0-5.2) X10^6/uL Hgb 14.4 (12.0-16.0) g/dL Hct 42.8 (36-46) % MCV 89.0 (80-100) fL MCH 29.8 (26-34) PG MCHC 33.5 (30-36) % RDW 17.1 H (11.6-14.8) % Plt Count 281 (150-400) X10^3/uL Neut % (Auto) 74.6 (50-75) % Lymph % (Auto) 18.3 L (25-40) % Rock % (Auto) 5.6 (3-14) % Eos % (Auto) 1.3 L (2-4) % Baso % (Auto) 0.2 (0-2) % Neut # (Auto) 6100 (5021-0004) /uL Lymph # (Auto) 1500 (8883-0879) /uL Rock # (Auto) 500 (0-900) /uL Eos # (Auto) 100 (0-450) /uL Baso # (Auto) 0 (0-100) /uL PT 14.4 H (10.1-12.7) SECONDS INR 1.3 (0.9-1.3) Sodium 139 (137-145) mmol/L Potassium 4.1 (3.4-5.1) mmol/L Chloride 100 (98-107) mmol/L Carbon Dioxide 25 (22-32) mmol/L BUN 30 H (7-17) mg/dL Creatinine 1.07 H (0.52-1.04) mg/dL Estimated GFR 50.7 L (>60) mL/min BUN/Creatinine Ratio 28.0 H (6-22) Glucose 102 (80-110) mg/dL Calcium 10.8 H (8.4-10.2) mg/dL Total Bilirubin 0.9 (0.2-1.3) mg/dL AST 37 H (14-36) IU/L ALT 22 (<35) IU/L Alkaline Phosphatase 122 (38-126) U/L Total Protein 9.8 H* (6.3-8.2) g/dL Albumin 4.8 (3.5-5.0) g/dL Globulin 5.0 H (1.7-4.1) g/dL Albumin/Globulin Ratio 1.0 (1.0-2.8) Discharge Plan Departure Patient Disposition: Home Clinical Impression: Gastric outlet obstruction, Esophagitis Instructions: DI for Gastric Outlet Obstruction Activity Restrictions/Additional Instructions: Your gastric outlet syndrome has caused an obstruction in the distal portion of your esophagus making it difficult for food and large pieces of food to pass through. The treatment options that we discussed today were to have a PEG tube placed into your stomach so that you can begin to receive caloric intake directly anterior stomach. The other option is to consider an esophageal stent to relieve the obstruction to allow for food to pass through. Based on your instructed instructions to be discharged home I would recommend that you work to maintain adequate hydration and that all food needs to be in liquid form and to do your best to try to increase her caloric intake. Contact your oncologist to discuss treatment options that you would like to proceed with. If you are not able to stay hydrated or you have any further difficulty please return back to the emergency room. Thank you for the opportunity to be involved in your care today. Prescriptions: No Action sertraline 100 mg tablet 200 mg PO DAILY 0RF acetaminophen 500 mg Capsule 500 mg PO Q6H PRN (Reason: PAIN) 0RF ibuprofen 600 mg tablet 600 mg PO Q6H PRN (Reason: pain) 0RF lorazepam 0.5 mg tablet 0.25 - 0.5 mg PO TID PRN (Reason: Anxiety) 0RF melatonin 5 mg Tablet 5 mg PO BEDTIME PRN (Reason: Sleep) 0RF ondansetron HCl [Zofran] 4 mg tablet 4 mg PO Q6H PRN (Reason: nausea and vomiting) Qty: 5 0RF albuterol sulfate [Ventolin HFA] 90 mcg/actuation Hfa Aerosol Inhaler 2 puff INHALATION Q4H PRN (Reason: Shortness Of Breath) 0RF ondansetron HCl [Zofran] 8 mg Tablet 8 mg PO BID-TID PRN (Reason: Nausea) Qty: 20 3RF pantoprazole 40 mg Tablet,Delayed Release (Dr/Ec) 40 mg PO BID 0RF folic acid 1 mg Tablet 1 mg PO DAILY Qty: 30 5RF dexamethasone 4 mg Tablet 4 mg PO BID Qty: 36 0RF Rx Instructions: take 4 mg BID for 3 days starting the day before Tx, for 6 cycles oxycodone [OxyContin] 10 mg Tablet,Oral Only,Ext.Rel.12 Hr 10 mg PO Q12H Qty: 60 0RF olanzapine 5 mg Tablet 5 mg PO DAILY 0RF oxycodone 5 mg tablet 5 mg PO Q6H PRN (Reason: pain) Qty: 100 0RF nystatin 100,000 unit/mL Suspension 100,000 unit PO QID Qty: 100 1RF Rx Instructions: administer 1/2 of dose in each side of the mouth, swish around as long as possible, the ngargle and swallow. fluticasone propionate 110 mcg/actuation HFA aerosol inhaler 1 puff Inhalation BID 0RF metoclopramide HCl 10 mg Tablet 10 mg PO Q6H PRN (Reason: Nausea) 0RF Referrals: Niraj Cantu MD [Primary Care Provider] - <Tara Lai DO - Last Filed: 09/30/21 03:03> Cosign ED Attending Cosignature Attestation: I was immediately available in the department for consultation. Documentation has been reviewed. I agree with assessment and plan.
--- NOTE | 2021-09-29 18:04 | DI.CT.S_ITS ---
PROCEDURE: CT CHEST WO CON INDICATIONS: chest pain, difficulty swallowing, CA patient TECHNIQUE: Noncontrast 5 mm thick sections acquired from the pulmonary apices to the posterior costophrenic angles. 1 mm lung window, 5 mm thick coronal and sagittal and 7 mm axial MIP reformats were then acquired. For radiation dose reduction, the following was used: automated exposure control, adjustment of mA and/or kV according to patient size. COMPARISON: [facility], CT, CT ANGIO CHEST PE PROTOCOL, 04/13/2021, 0:06. FINDINGS: Image quality: Excellent. Lungs and pleura: Chronic moderate size left and small right pleural effusions. Associated atelectatic change. Mild fissural thickening and septal thickening at the right lung base. A small subpleural nodules in the right middle lobe and left lower lobe, stable. Mediastinum: The esophagus is dilated and contains an air-fluid level. Distally, there is circumferential esophageal wall thickening. The heart size is normal and there is a small pericardial effusion. The ascending aorta is aneurysmal measuring 4.5 cm in AP diameter, slightly enlarged, previously measured 4.3 cm. Mild atherosclerotic calcification. Central pulmonary arteries are normal size. The branching great vessels have conventional anatomy. No bulky mediastinal or hilar adenopathy. Right IJ MediPort is in place. Bones and chest wall: Partially imaged thyroid appears normal. No axillary or supraclavicular adenopathy. Right IJ Port-A-Cath. Abdomen: Fluid in the distended, partially imaged stomach. There is perigastric loculated ascites anterior to the stomach, similar compared to the prior study. There is linear and branching radiodensity in the visible left hepatic lobe, potentially treatment related change in the liver. IMPRESSION: 1. Dilated fluid-filled esophagus with distal esophageal wall thickening. This may be secondary to nonvisualized gastric outlet obstruction, treatment related esophagitis, or distal soft tissue mass in the esophagus. 2. Chronic bilateral pleural effusions, left larger than right without significant interval increase. 3. Ascending aorta aneurysm. 4. No new adenopathy in the chest. Dictated by: Lesa Pennington M.D. on 09/29/2021 at 19:05 Approved by: Lesa Pennington M.D. on 09/29/2021 at 19:12
[2021-09-29 19:58] VITALS: BP 141/95; PULSE 87; RESP 15; O2SAT 98
== END 2021-09-29 19:59 | disposition home or self-care (01) ==
PROVIDERS: Emergency Medicine; Emergency Provider Physician Assistant; PCP Internal Medicine
DX: K31.1 Adult hypertrophic pyloric stenosis (principal); K20.90 Esophagitis, unspecified without bleeding
CPT/HCPCS: 36415; 71250; 80053; 85025; 85610; 99283; J2405

== ENCOUNTER → 2021-09-30 13:52 | Outpatient (CLI) | payer MEDICARE, OTHER, SELFPAY ==
[2021-04-13 05:55] VITALS: BMI 22.6
--- NOTE | 2021-09-30 14:00 | DIET.CONS ---
Dietary Consultation Note Assessment: 71[address] visit for persistent and accelerating weight loss secondary to ovarian cancer. Pt missed previous nutrition visit as she and her spouse were in [facility] at their vacation home. Pt enters RD office and immediately begins sobbing stating, I'm hungry. Pt tolerating one Boost ONS daily and applesauce though feels it get stuck in esophagus. Pt was in Emergency department yesterday secondary to difficulty swallowing CT of chest done, found to have dilated esophagus with circumferential esophageal wall thickening. Per provider note, PEG placement possible, pt decided to go home to talk with spouse. It seems there is disagreement between pt and spouse on PEG tube as she currently has colostomy. Nutrition visit brief as pt desires to go to [facility] to get fluids and discuss whether or not she can move forward with PEG placement. Wt: 45.3kg UBW: 72kg (-37% unintentional x1y) Nutrition Diagnosis: Severe Acute on Chronic Protein Calorie Malnutrition r/t ovarian cancer and difficulty swallowing aeb 37% unintentional weight loss in 1y (severe), pt with circumferential esophageal wall thickening limiting PO intake, pt hungry, desires PEG placement. Interventions: 1. Discussed PEG tube, what it looks like management, and indication. 2. Discussed PO strategies to reduce further weight loss through ONS Boost High Calorie (500kcal/22g PRO) and provided samples of Medtrition high PRO jello and liquid protein modular to add to apple sauce. EER: 1575kcal (35kcal/kg per PCM), 70g PRO (1.5g/kg per PCM) Monitoring/Evaluations: following POC Electronically Signed by: Adrienne Sow 09/30/21 14:00 Clinical Dietitian [address] [id number]
== END ==
PROVIDERS: PCP Internal Medicine; Referring Provider Internal Medicine; Visit Provider Internal Medicine
DX: E43 Unspecified severe protein-calorie malnutrition (principal); C56.9 Malignant neoplasm of unspecified ovary; R63.4 Abnormal weight loss; K22.89 Other specified disease of esophagus; R13.10 Dysphagia, unspecified; Z71.3 Dietary counseling and surveillance
CPT/HCPCS: 97802

== ENCOUNTER 2021-09-30 17:06 | Inpatient (IN) | payer MEDICARE, OTHER, SELFPAY ==
[2021-04-13 05:55] VITALS: BMI 22.6
[2021-09-30] VITALS (13 sets, daily range): BP systolic 136–169; BP diastolic 88–103; PULSE 77–87; RESP 18–22; TEMP 36.1–36.4; O2SAT 93–98; BMI 17.5
--- NOTE | 2021-09-30 17:43 | PC.NURSE ---
pt grandson requesting to come back, pt already has a visitor in the room. we explained the visitor policy to both spouse (in the room) and grandson. I did explain if there is a change in pt status we would have a conversation about adapting the policy to her needs. i did offered to help video chat for the family.
--- NOTE | 2021-09-30 17:45 | PC.NURSE ---
Pt is currently being treated for ovarian ca. and is here for pain management. Received 2mg of morphine at the ca center approx 1 hr ago per husbands report
[2021-09-30] MEDS: ONDANSETRON 4 MG/2 ML INJ IV (18:00)
[2021-09-30] MEDS: HYDROMORPHONE 0.5 MG INJ IV ×4 (18:00→22:45)
--- NOTE | 2021-09-30 18:11 | ED_ITS ---
HPI - Recheck/Abnormal Lab/Rx General Chief Complaint: Recheck/Abnormal Lab/Rx Stated Complaint: LOTS OF PAIN CANCER PATIENT PAIN CONTROL Time Seen by Provider: 09/30/21 18:11 Source: patient Mode of arrival: Wheelchair History of Present Illness HPI narrative: 71F nonsmoker with history of end-stage ovarian cancer with Mets throughout in the process of arranging hospice care presents for help managing pain. She is a DNR with comfort measures only and had a conversation with oncology today that she does not want to pursue any further treatment whatsoever and is ready to . Hospice consultation has been put in place but is not available for the next few days. She has an esophageal mass providing her from swallowing any food, liquids or medications. She does not have any sort of feeding tube in place and does not want to pursue this as an option. She is here purely for pain control, her primary source of pain is in the lower throat and upper chest. She was here recently and had imaging demonstrating these findings Related Data Home Medications Medication Instructions Recorded Confirmed albuterol sulfate 90 mcg/actuation 2 puff INHALATION Q4H PRN 06/23/18 09/05/21 aerosol inhaler (Ventolin HFA) acetaminophen 500 mg capsule 500 mg PO Q6H PRN 09/24/18 09/05/21 sertraline 100 mg tablet 200 mg PO DAILY 09/24/18 09/05/21 fluticasone propionate 110 1 puff INHALATION BID 10/28/18 09/05/21 mcg/actuation HFA aerosol inhaler ibuprofen 600 mg tablet 600 mg PO Q6H PRN 03/01/19 09/05/21 lorazepam 0.5 mg tablet 0.25 - 0.5 mg PO TID PRN 03/01/19 09/05/21 melatonin 5 mg tablet 5 mg PO BEDTIME PRN 03/01/19 09/05/21 pantoprazole 40 mg tablet,delayed 40 mg PO BID 01/17/21 09/05/21 release olanzapine 5 mg tablet 5 mg PO DAILY 03/21/21 09/05/21 metoclopramide HCl 10 mg tablet 10 mg PO Q6H PRN 04/13/21 09/05/21 Previous Rx's Medication Instructions Recorded ondansetron HCl 8 mg tablet 8 mg PO BID-TID PRN #20 tab 12/23/18 (Zofran) folic acid 1 mg tablet 1 mg PO DAILY #30 tab 01/17/21 dexamethasone 4 mg tablet 4 mg PO BID #36 tab 02/07/21 ondansetron HCl 4 mg tablet 4 mg PO Q6H PRN #5 tab 03/02/21 (Zofran) oxycodone 10 mg tablet,crush 10 mg PO Q12H #60 tab 03/07/21 resistant,extended release 12 hr (OxyContin) nystatin 100,000 unit/mL oral 100,000 unit PO QID #100 ml 08/15/21 suspension oxycodone 5 mg tablet 5 mg PO Q6H PRN #100 tab 09/30/21 Allergies Allergy/AdvReac Type Severity Reaction Status Date / Time venlafaxine [From Effexor] AdvReac Intermediate Difficulty Verified 09/30/21 17:22 Breathing bupropion AdvReac Unknown Anxiety Verified 09/30/21 17:22 escitalopram [From Lexapro] AdvReac Unknown Verified 09/30/21 17:22 fluoxetine AdvReac Unknown Verified 09/30/21 17:22 mirtazapine AdvReac Unknown Verified 09/30/21 17:22 Review of Systems Review of Systems Narrative: GENERAL: Denies chills, fatigue, malaise, fever, sweats. HEENT: See HPI RESPIRATORY: Denies dyspnea, cough, wheezing, hemoptysis, sputum. CARDIOVASCULAR: Denies chest pain, palpitations, orthopnea, edema, GASTROINTESTINAL: Denies nausea, vomiting, abdominal pain, diarrhea, constipation, melena. : Denies dysuria, frequency, incontinence, hematuria, urinary retention. MUSCULOSKELETAL: denies weakness, joint pain, or bony pain SKIN: Denies rash, skin lesions, or other NEUROLOGIC: Denies weakness, headache, numbness, change in speech, confusion, seizures, incoordination. PSYCHIATRIC: No concerning psychosocial issues. 12 point review of systems is negative except for those stated above Patient History Medical History Asthma Double vision Ovarian cancer Renal cell carcinoma Tubal ligation evaluation Surgical History H/O breast biopsy Social History marital status: household members: spouse Smoking Status: Never smoker alcohol intake: never substance use type: does not use Smoking Status: Never smoker alcohol intake frequency: 0-2 drinks per day Substance Use Type: does not use Exam Narrative Exam Narrative: GENERAL: [71 year old patient appears stated age. Thin, clearly chronically ill, in mild distress. HEAD: Atraumatic. Normocephalic. EYES: Pupils equal round and reactive. Extraocular motions intact. No scleral icterus. No injection or drainage. ENT: Dry mucous membranes, Nose without bleeding, purulent drainage. Throat without erythema, tonsillar hypertrophy or exudate. Airway patent. NECK: Trachea midline. Non tender CARDIOVASCULAR: Regular rate and rhythm without murmurs, gallops, or rubs. RESPIRATORY: Clear to auscultation. Breath sounds equal bilaterally. No wheezes, rales, or rhonchi. GASTROINTESTINAL: Abdomen soft, non-tender, nondistended. EXTREMITIES: No edema or joint tenderness. BACK: Nontender without deformity or crepitance. No flank tenderness. NEURO: AOx3. SKIN: Poor skin turgor No rash or erythema of visible areas Initial Vital Signs Initial Vital Signs: Vital Signs Temperature 97.5 F L 09/30/21 17:18 Pulse Rate 82 09/30/21 17:18 Respiratory Rate 22 09/30/21 17:18 Blood Pressure 152/97 H 09/30/21 17:18 Pulse Oximetry 98 09/30/21 17:18 Course Course Course Narrative: SW consulted early in the visit, they have reached out to hospice and states that it is about a 2 day turned around. We sure the opinion that the patient will be best served to come into the hospital for hydration and pain control with comfort as our goal. Patient and family agree with and understand the plan Orders Ordered: ED Orders 09/30/21 18:31 Consult to GEOLOGIST PETROLEUM - Cash Register Repairer Stat 09/30/21 18:32 Consult to GEOLOGIST PETROLEUM - Cash Register Repairer Stat 09/30/21 18:35 Consult to Hospice Referral Stat 09/30/21 18:40 COVID19 -Nasal swab/Pre-Proc Stat Acetaminophen (Acetaminophen 325 Mg Tablet) 650 mg PO Q6HR PRN PRN Reason: Fever/Mild Pain (1-3) Artificial Tears (Polyvinyl Alcohol Drops) 1 drops EYE-BOTH Q2HR PRN PRN Reason: Dry Eye(s) Atropine Sulfate (Atropine 1% Ophth) 2 drops SL Q2HR PRN PRN Reason: Secretions Bisacodyl (Bisacodyl 5 Mg Tablet) 5 mg PO BID PRN PRN Reason: Constipation Hydromorphone HCl (Hydromorphone 0.5 Mg Inj) 0.5 mg IV Q1H PRN PRN Reason: Pain, Moderate (4-6) Last Admin: 09/30/21 22:45 Dose: 0.5 mg Documented by: BETSY Lorazepam (Lorazepam 2 Mg/Ml Inj) 1 mg IV Q1HR PRN PRN Reason: Agitation/Anxiety Metoclopramide HCl (Metoclopramide 10 Mg/2 Ml Inj) 10 mg IV Q4HR PRN PRN Reason: Nausea And Vomiting Naloxone HCl (Naloxone 0.4 Mg/Ml Vial) 0.2 mg IV Q2MIN PRN PRN Reason: Opiate Reversal Ondansetron HCl (Ondansetron 4 Mg/2 Ml Inj) 4 mg IV Q6HR PRN PRN Reason: Nausea And Vomiting Scopolamine (Scopolamine 1 Patch) 1 patch TOP Q72H PRN PRN Reason: Secretions Discontinued Medications Hydromorphone HCl (Hydromorphone 0.5 Mg Inj) 0.5 mg IV NOW ONE Stop: 09/30/21 17:55 Last Admin: 09/30/21 18:00 Dose: 0.5 mg Documented by: ULISSES Hydromorphone HCl (Hydromorphone 0.5 Mg Inj) 0.5 mg IV NOW ONE Stop: 09/30/21 18:31 Last Admin: 09/30/21 18:35 Dose: 0.5 mg Documented by: ULISSES Hydromorphone HCl (Hydromorphone 0.5 Mg Inj) 0.5 mg IV NOW ONE Stop: 09/30/21 21:19 Last Admin: 09/30/21 21:23 Dose: 0.5 mg Documented by: ULISSES Ondansetron HCl (Ondansetron 4 Mg/2 Ml Inj) 4 mg IV NOW ONE Stop: 09/30/21 17:55 Last Admin: 09/30/21 18:00 Dose: 4 mg Documented by: ULISSES Vital Signs Vital signs: Vital Signs - 8 hr 09/30/21 17:18 09/30/21 17:20 09/30/21 18:03 Temperature 97.5 F L Pulse Rate 82 79 Respiratory Rate 22 Blood Pressure 152/97 H 152/97 H Pulse Oximetry 98 93 96 09/30/21 18:04 09/30/21 18:30 09/30/21 19:00 Temperature Pulse Rate 79 79 77 Respiratory Rate Blood Pressure 139/92 H 169/103 H 145/92 H Pulse Oximetry 95 96 95 09/30/21 19:30 09/30/21 20:00 09/30/21 20:30 Temperature Pulse Rate 84 85 86 Respiratory Rate Blood Pressure 136/88 143/95 H 142/92 H Pulse Oximetry 95 93 93 09/30/21 21:00 Temperature Pulse Rate 87 Respiratory Rate Blood Pressure Pulse Oximetry 97 MDM - Recheck/Abnormal Lab/Rx Lab Data Labs: Lab Results 09/30/21 Range/Units 18:40 SARS-CoV-2 (PCR) Negative (Negative) Discharge Plan Departure Patient Disposition: Admitted as Observation Clinical Impression: Adult failure to thrive, Acute esophageal obstruction Admit Date/Time: 09/30/21 21:25 Admit Provider: Amanda Machuca
--- NOTE | 2021-09-30 19:11 | PC.NURSE ---
Pt states her pain is better under control with the 2nd dose of Dilaudid. Declines need for additional meds at this time
--- NOTE | 2021-09-30 19:16 | CM.DANOTE ---
DCP Assessment Patient is 71 y/o female who presents to ED via recommendation from Oncologist Dr. Perla. Patient presents with uncontrollable pain and seeking comfort care and hospice. Per ONC note, Dr. Perla submitted Hospice referral as well. Patient has hx of Ovarian cancer, Gastric Outlet obstruction, current colostomy, Asthma, and Renal cell carcinoma. Patient's PCP is Dr. Niraj Cantu, patient has Medicare and life insurance. Patient states she is DNR and seeking comfort care. Patient presents as A/Ox4 with El in room. Patient states I want to . Patient endorses constant pain and has been feeling this way for the last four days and presents with an obstruction in her esophagus and states she cannot eat. Patient states I should have stayed home and taken a handful of oxycodone. Prior to meeting with patient, DISTANCE EDUCATION DIRECTOR consults with ED provider Dr. Omer who requests referral for Hospice. DISTANCE EDUCATION DIRECTOR calls [facility] and it is reported that they can call patient tomorrow AM (10/01/21) but services would not be able to start for aprox. another two days. DISTANCE EDUCATION DIRECTOR endorses to patient that hospice will contact patient tomorrow morning and schedule intake appt. Patient indicates agreement and understanding. Per ED provider Dr. Omer patient to be admitted to acute care until Hospice is in place. Plan: Hospice referral sent, Hospice to call patient in the AM on 10/01/21, POC pending on start of in home hospice. BENJAMIN Dalton Discharge Planning/Care Management CM Discharge Assessment Start: 09/30/21 19:14 Freq: Status: Active Protocol: Document 09/30/21 19:14 LN (Rec: 09/30/21 19:16 LN [id number]) Discharge Planning Assessment Assigned Enforcement Manager BENJAMIN Cleary Advance Directives? Yes Advance Directives on File No History Provided By Patient,Medical Record Has Patient been admitted in last 30 No days? Prior Living Arrangements House Household Members spouse Type of transportation used prior to Relies on Others admit Independent with ADL's No Is patient alert and oriented? Yes Needs Assistance With Eating Comment Hospice referral intiated Discharge Plan [facility] Hospice Transportation Arrangement Spouse Referrals Initiated Other Additional Comment [facility] Review Status In Process Please Provide Date Initial DC 09/30/21 Assessment Was Performed Next Review Type Continued Stay Review
[2021-09-30 19:57] LABS: COVID19 -Nasal RAPID Negative (Negative)
[2021-09-30] MEDS: LORazepam 2 MG/ML INJ 1 MG IV (23:00)
--- NOTE | 2021-09-30 23:03 | PM.HP.1 ---
History of Present Illness History of Present Illness Date Patient Seen: 09/30/21 Time Patient Seen: 22:30 Chief complaint: Cancer pt. requesting Hospice & pain mgmt. Narrative: Paz Garcia is an unfortunate 71 y.o. with end stage metastatic ovarian cancer to liver and peritoneum, asthma, left kidney mass, exlap in 2019 with BSO, omenectomy and colostomy who presents to the ED for the second day in a row seeking pain control and hospice. She was found to have an esophageal mass, seen in the ED one day ago and offered a feeding tube due to her persistent weight loss and inability to swallow. She had wanted to give it some thought and was in process of being referred to hospice which will not be available likely until later this week. She informs me that she just wants to , she is over this and just wants to be made comfortable. Review of her last oncology note indicated she was receiving palliative Avastin administered q 21 days and and completed a course of Pemetrexed in March 2021. She was to have continued bevacizumab, but it appears she has discontinued this. In the emergency department to they did not do any imaging studies today however CT scan done yesterday indicated dilated fluid-filled esophagus with distal esophageal wall thickening concerning for a distal soft tissue mass. Today her temperature is 97.0?, blood pressure 144/93, heart rate 82, respiratory rate 18, oxygen saturation of 94% on room air she weighs 46.2 kg with a BMI of 22.6. COVID PCR is negative. Patient History Medical History Asthma Double vision Ovarian cancer Renal cell carcinoma Tubal ligation evaluation Surgical History H/O bilateral salpingo-oophorectomy H/O breast biopsy History of colostomy Family & Social History Social History: household members spouse Prior Living Arrangements House Safety & Behavioral: Feels Safe in Current Yes Environment Been Physically Hurt or No Threatened By a Person Tobacco & Substance use: Smoking Status Never smoker alcohol intake never alcohol intake frequency 0-2 drinks per day Substance Use Type does not use Meds Home Medications and Allergies Home Medications Medication Instructions Recorded Confirmed Type albuterol sulfate 90 mcg/actuation 2 puff INHALATION Q4H PRN 06/23/18 09/05/21 History aerosol inhaler (Ventolin HFA) acetaminophen 500 mg capsule 500 mg PO Q6H PRN 09/24/18 09/05/21 History sertraline 100 mg tablet 200 mg PO DAILY 09/24/18 09/05/21 History fluticasone propionate 110 1 puff INHALATION BID 10/28/18 09/05/21 History mcg/actuation HFA aerosol inhaler ondansetron HCl 8 mg tablet 8 mg PO BID-TID PRN #20 tab 12/23/18 09/05/21 Rx (Zofran) ibuprofen 600 mg tablet 600 mg PO Q6H PRN 03/01/19 09/05/21 History lorazepam 0.5 mg tablet 0.25 - 0.5 mg PO TID PRN 03/01/19 09/05/21 History melatonin 5 mg tablet 5 mg PO BEDTIME PRN 03/01/19 09/05/21 History folic acid 1 mg tablet 1 mg PO DAILY #30 tab 01/17/21 09/05/21 Rx pantoprazole 40 mg tablet,delayed 40 mg PO BID 01/17/21 09/05/21 History release dexamethasone 4 mg tablet 4 mg PO BID #36 tab 02/07/21 09/05/21 Rx ondansetron HCl 4 mg tablet 4 mg PO Q6H PRN #5 tab 03/02/21 09/05/21 Rx (Zofran) oxycodone 10 mg tablet,crush 10 mg PO Q12H #60 tab 03/07/21 09/05/21 Rx resistant,extended release 12 hr (OxyContin) olanzapine 5 mg tablet 5 mg PO DAILY 03/21/21 09/05/21 History metoclopramide HCl 10 mg tablet 10 mg PO Q6H PRN 04/13/21 09/05/21 History nystatin 100,000 unit/mL oral 100,000 unit PO QID #100 ml 08/15/21 09/05/21 Rx suspension oxycodone 5 mg tablet 5 mg PO Q6H PRN #100 tab 09/30/21 Rx Allergies Allergy/AdvReac Type Severity Reaction Status Date / Time venlafaxine [From Effexor] AdvReac Intermediate Difficulty Verified 09/30/21 17:22 Breathing bupropion AdvReac Unknown Anxiety Verified 09/30/21 17:22 escitalopram [From Lexapro] AdvReac Unknown Verified 09/30/21 17:22 fluoxetine AdvReac Unknown Verified 09/30/21 17:22 mirtazapine AdvReac Unknown Verified 09/30/21 17:22 Review of Systems Review of Systems Narrative: Patient just referred to generalized overall pain, difficulty swallowing, lesions on her tongue, dry mouth. No complaints of shortness of breath or chest pain. Exam Vital Signs (past 8 hours): - 09/30/21 17:18 09/30/21 17:20 09/30/21 18:03 Temperature 97.5 F L Pulse Rate 82 79 Respiratory Rate 22 Blood Pressure 152/97 H 152/97 H Pulse Oximetry 98 93 96 09/30/21 18:04 09/30/21 18:30 09/30/21 19:00 Temperature Pulse Rate 79 79 77 Respiratory Rate Blood Pressure 139/92 H 169/103 H 145/92 H Pulse Oximetry 95 96 95 09/30/21 19:30 09/30/21 20:00 09/30/21 20:30 Temperature Pulse Rate 84 85 86 Respiratory Rate Blood Pressure 136/88 143/95 H 142/92 H Pulse Oximetry 95 93 93 09/30/21 21:00 09/30/21 21:30 09/30/21 22:00 Temperature Pulse Rate 87 83 82 Respiratory Rate Blood Pressure Pulse Oximetry 97 94 93 09/30/21 22:05 Temperature 97.0 F L Pulse Rate 82 Respiratory Rate 18 Blood Pressure 144/93 H Pulse Oximetry 94 Oxygen Delivery Method Room Air Oxygen Flow Rate 0 Narrative Exam Narrative: Gen: Alert, oriented, cachectic appearing 80 y.o. female, anxious HEENT: normocephalic, atraumatic, conjunctiva clear, sclera non-icteric, oral mucosa pink and moist Neck: supple, full ROM, no JVD, trachea is midline Skin: no lesions or rashes, dry and intact Neuro: Alert and oriented X 4 w/no focal deficits. Speech clear and coherent. Extremities: moves all 4 extremities, is ambulatory, negative Oneil?s sign Psyche: labile, but appropriate for the circumstances Objective Labs Labs: Laboratory Results - last 24 hr 09/30/21 18:40 SARS-CoV-2 (PCR) Negative Assessment & Plan Assessment & Plan narrative: Assessment: Advanced care planning for palliative care Metastatic late stage ovarian cancer Renal cell carcinoma Colostomy status Obstructing esophageal mass Plan: aPz Garcia will be placed in observation for comfort measures only with referral to hospice. Patient is indicated that she prefers to not go home to and would prefer to remain in the hospital to pass. I have not ordered any significant interventions or VTE prophylaxis in honor of her wishes to pass naturally as soon as possible. She is on the comfort measures only protocol with medications for pain control, nausea control, and symptom control related to having a dry mouth and difficulty swallowing. She was previously encouraged to take small sips however she is unable to do so at this time. We will leave it at her discretion make those decisions on her own if she wants to moisturizer mouth or attempt to take small amounts of food or fluids. IV Dilaudid 0.5 q.2 hours as needed for pain, Zofran and Reglan for nausea and vomiting, may add Ativan for anxiety. She currently takes melatonin however she may not be able to swallow it. Code status: Comfort measures only. COVID-19 COVID-19 status: Negative Result date/Date tested (Pos, Neg/Pending): 09/30/21 Time Spent With Patient Critical Care time: I spent a total of [] minutes of critical care time on this patient's care today; this time is exclusive of procedural time. Quality VTE Deep Vein Thrombosis/Pulmonary Embolism Present on Admission: No MIPS - Admit I confirm the patient?s Advance Care Plan is present, Code status is documented, Surrogate decision maker is in patient?s record [If Yes, STOP here]: Yes MIPS - DC The patient has current or prior documentation of left ventricular ejection fraction (LVEF) less than 40%, or moderate or severely depressed left ventricular systolic function.: No
--- NOTE | 2021-10-01 01:16 | PC.NURSE ---
Pt admitted for pain control and comfort care. Pt states I wished I could just in the hospital. Pt wants limited interventions only, No quiles catheter. Just wants pain control management. Pt received a dose of hydromorphone 0.5 mg and 1 mg of Ativan. Plan is for patient to go home with hospice.
[2021-10-01 07:30] VITALS: BP 112/79; PULSE 105; RESP 20; TEMP 36.6; O2SAT 94
[2021-10-01] MEDS: HYDROMORPHONE 0.5 MG INJ IV ×2 (08:54→12:44)
--- NOTE | 2021-10-01 09:23 | ONC.MSW ---
ONC check-in/emotional support COVER MAKER met with pt in the room this am to offer coping/emotional support. Pt is a long-time patient of Oncology, and was very involved in this COVER MAKER's women's cancer support group. Provided end-of-life counseling, pt again expresses readiness to , feels at peace. She shared that her pain is in better control today, however, her RN just gave her pain meds prior to this COVER MAKER entering the room. Of note, there was a full tray of food on the bedside table. COVER MAKER informed the ORE STORAGE DRIER that pt cannot eat, and to please make a note as to her dietary restrictions. Pt's , El, will be returning to the room later this morning. COVER MAKER will check-in w/him and offer additional coping support/closure from Oncology. Will plan to continue to monitor until pt's d/c to hospice.
[2021-10-01] MEDS: NYSTATIN SUSP 500,000 UNIT/5 ML UDC 100000 UNIT PO ×4 (09:24→23:25)
[2021-10-01 10:27] VITALS: O2SAT 92; O2SAT 94
--- NOTE | 2021-10-01 13:51 | CM.DPC ---
Addendum entered by Maria G Klein 10/01/21 14:56: Spoke with Mindy at [facility]. She reports that hospice will have informational visit with patient and spouse tomorrow at 9:00AM. Per Mindy at hospice patient declined DME in the residence. Hospice has patient tentatively scheduled to see in the home on Thursday 3-25 in the afternoon. At this time it is unclear whether or not patient would need to be seen by hospice on same day of discharge. It medically appropriate patient could go home with spouse until hospice arrived but pain would need to be managed. Current plan is once pain managed for patient to d/c home. Provider reports that patient may need pain management until Thursday when hospice can see her in the residence. CM team following closely. Patient currently inpatient status. P: Home with hospice. MAKAYLA Original Note: DCP/continued: Reviewed chart. [facility] evaluation initiated in the ED. REGISTERED DENTAL HYGIENIST left vm with [facility] to determine when they can open in the residence and when will DME be delivered. Neither known at this time. Dr. Milian reports that he will put patient on sublingual morphine today in hopes that she can d/c tomorrow? P: Awaiting call back from [facility] re: start date. MAKAYLA
[2021-10-01] MEDS: HYDROMORPHONE 1 MG INJ IV ×3 (15:48→23:18)
--- NOTE | 2021-10-01 18:34 | PM.PN.1 ---
Subjective Subjective Date Patient Seen: 10/01/21 Time Patient Seen: 15:00 Interval history: This is a 71-year-old female admitted for pain control in the setting of metastatic ovarian cancer. She also has a likely esophageal obstruction based on CT imaging though no discrete mass was seen. She does not desire any further workup with endoscopy or further imaging. Was agreeable to trial of steroids to see if she could potentially eat slightly more given inflammation seen and the distal esophagus. Her pain is primarily located in the upper chest with minimal p.o. intake, but she diffusely has a significant amount of pain related to her malignancy as well. Exam Vital Signs (past 8 hours): Oxygen Delivery Method Nasal Cannula Oxygen Flow Rate 1 Narrative Exam Narrative: Gen: Alert, oriented, cachectic appearing 80 y.o. female, anxious HEENT: normocephalic, atraumatic, conjunctiva clear, sclera non-icteric, oral mucosa pink and moist Neck: supple, full ROM, no JVD, trachea is midline Skin: no lesions or rashes, dry and intact Neuro: Alert and oriented X 4 w/no focal deficits. Speech clear and coherent. Extremities: no edema or joint effusions Psyche: occasionally tearful, mildly anxious, appropriate for situation. Objective Labs Labs: Laboratory Results - last 24 hr 09/30/21 18:40 SARS-CoV-2 (PCR) Negative PFSH Medical History Asthma Double vision Ovarian cancer Renal cell carcinoma Tubal ligation evaluation Surgical History H/O bilateral salpingo-oophorectomy H/O breast biopsy History of colostomy Social History marital status: household members: spouse Smoking Status: Never smoker alcohol intake: never substance use type: does not use Assessment & Plan Assessment & Plan narrative: Advanced care planning for palliative care Metastatic late stage ovarian cancer Renal cell carcinoma Possible esophageal obstruction Severe Acute on Chronic Protein Calorie Malnutrition r/t ovarian cancer This is a 71-year-old female with a past medical history of late stage ovarian cancer as well as a history of renal cell carcinoma who presented with uncontrolled pain. She was admitted for pain control and is feeling improved today with continued IV pain medications. Will try and transition to oral morphine in the hopes that she can go home on hospice and avoid IV medications. Her goal is primarily to have her pain controlled at the moment. Hospice cannot open at home at this point until Thursday at this time but we may be able to get her home sooner if pain is controlled on oral medications. CT scan did not show a discrete mass causing esophageal struck kumar but there is certainly concern for this. Will try some steroids to see if this is inflammatory in nature and if it can potentially help her tolerate more food. Code status:? Comfort measures only. Dispo: remains inpatient for continued pain control. Likely discharge home with home hospice to open on thursday. If pain controlled can potentially discharge in the next 1-2 days. COVID-19 COVID-19 status:?Negative Result date/Date tested (Pos, Neg/Pending):?09/30/21 Time Spent With Patient Critical Care time: I spent a total of [] minutes of critical care time on this patient's care today; this time is exclusive of procedural time. Quality VTE Deep Vein Thrombosis/Pulmonary Embolism Present on Admission: No
[2021-10-01] MEDS: DEXAMETHASONE 4 MG/ML VIAL IV (23:27)
[2021-10-01] MEDS: SODIUM CHLORIDE 0.9% FLUSH 10 ML IV (23:34)
[2021-10-02 01:50] VITALS: PULSE 105; RESP 20; O2SAT 92
[2021-10-02] MEDS: HYDROMORPHONE 1 MG INJ IV ×2 (03:27→07:50)
[2021-10-02] MEDS: DEXAMETHASONE 4 MG/ML VIAL IV (05:59)
[2021-10-02] MEDS: SODIUM CHLORIDE 0.9% FLUSH 10 ML IV (07:51)
[2021-10-02 08:00] VITALS: BP 108/84; PULSE 92; RESP 22; TEMP 36.5; O2SAT 99
[2021-10-02] MEDS: NYSTATIN SUSP 500,000 UNIT/5 ML UDC 100000 UNIT PO (09:27)
[2021-10-02] MEDS: MORPHINE 10 MG/0.5 ML ORAL SYRINGE PO ×3 (09:27→12:02)
[2021-10-02] MEDS: LORazepam 2 MG/ML ORAL SOL 1 MG PO (10:11)
[2021-10-02 11:14] VITALS: O2SAT 94
[2021-10-02] MEDS: LORazepam 2 MG/ML ORAL SOL PO (12:01)
[2021-10-02 12:27] VITALS: BP 119/77; PULSE 78; RESP 16; TEMP 36.2; O2SAT 98
--- NOTE | 2021-10-02 14:51 | PC.NURSE ---
Bedside shift report done. Noted pt to be in significant amount of pain at change of shift. Pt reporting 8/10 localized to chest exacerbated by swallowing liquids. It feels like it just doesn't go down and then it hurts. Pt is tearful, tremulous, and unsure about what to do to manage pain. Pt given IV dilaudid with good effect; however did not last long. Pt was given education regarding pain med regimen and available options. Pt expresses concern regarding confusion r/t medications. Pt states she feels the gentleman on TV is looking at her, though she knows that is not reality. Explained to pt that if medications provided comfort and confusion was not bothersome or causing her distress, it was ok to be have some confusion. She states that her gets concerned when she has confusion. Reassured pt that education regarding pain med regimen would be explained to spouse and that primary goal should be comfort. Administered PRN morphine and ativan SL. Pt tolerated well and reported morphine decreased pain level but endorses anxiety. Called to Dr. Milian. Reported assessment findings. Orders rec'd to increase dose of PRN ativan. Administered with good effect. Pt is sleeping post med administration. Pt is using 1.5L NC O2 for comfort.
--- NOTE | 2021-10-02 15:44 | CM.DPC ---
DCP Hospice Planning Per MD, pt medically stable but primary concern is her significant pain control issues and will attempt two oral pain meds today to see if pt can tolerate prior to d/c to Home with Hospice. MD states pt and spouse agreeable to discharge to home prior to [facility] opening pt to service as long as her pain is better controlled. SW spoke to Mindy at [facility] and she confirms she just completed phone Info Visit with spouse and they are agreeable to [facility] at d/c and only concern is her pain. Spouse declines DME and [facility] can open pt to service on Thursday10/04/21 between [id number]. Pt's POLST currently shows [facility] and updated Dr. Milian that may need updated POLST for transport potentially and he is agreeable to update if needed. Plan: SW to follow closely for pt's pain to be better managed towards determining d/c to home tomorrow or Thursday when [facility] can open between [id number]. SW to follow to determine if pt's POLST needs to be updated for likely BLS transport at d/c. BENJAMIN Simon
--- NOTE | 2021-10-02 18:24 | PM.PN.1 ---
Subjective Subjective Date Patient Seen: 10/02/21 Time Patient Seen: 18:24 Interval history: Patient appears comfortable after 3 doses of oral morphine, last dose of ativan around noon. She is more difficult to arouse at this time after medications. Exam Vital Signs (past 8 hours): - 10/02/21 11:14 10/02/21 12:27 Temperature 97.2 F L Pulse Rate 78 Respiratory Rate 16 Blood Pressure 119/77 Pulse Oximetry 94 98 Oxygen Delivery Method Nasal Cannula Oxygen Flow Rate 1 Narrative Exam Narrative: Gen: Alert, oriented, cachectic appearing 80 y.o. female, no acute distress and appears comfortable. HEENT: normocephalic, atraumatic, conjunctiva clear, sclera non-icteric, oral mucosa pink and moist Neck: supple, full ROM, no JVD, trachea is midline Skin: no lesions or rashes, dry and intact Neuro: somnolent and difficult to arouse after morphine and ativan. [facility] Medical History Asthma Double vision Ovarian cancer Renal cell carcinoma Tubal ligation evaluation Surgical History H/O bilateral salpingo-oophorectomy H/O breast biopsy History of colostomy Social History marital status: household members: spouse Smoking Status: Never smoker alcohol intake: never substance use type: does not use Assessment & Plan Assessment & Plan narrative: Advanced care planning for palliative care Metastatic late stage ovarian cancer Renal cell carcinoma Possible esophageal obstruction Severe Acute on Chronic Protein Calorie Malnutrition r/t ovarian cancer This is a 71-year-old female with a past medical history of late stage ovarian cancer as well as a history of renal cell carcinoma who presented with uncontrolled pain.? She was admitted for pain control and was trialed on oral pain medications today. She was slightly over-sedated this afternoon but finally appears comfortable. Her goal is primarily to have her pain controlled at the moment.? Hospice cannot open at home at this point until Thursday at this time but we may be able to get her home sooner if pain is controlled on oral medications.? CT scan did not show a discrete mass causing esophageal struck kumar but there is certainly concern for this, steroids were attempted but not helpful in relieving a possible esophageal obstruction. Code status:? Comfort measures only. Dispo: remains inpatient for continued pain control. Likely discharge home with home hospice to open on thursday. If pain controlled and patient less somnolent can potentially discharge in the next 1-2 days. Time Spent With Patient Critical Care time: I spent a total of [] minutes of critical care time on this patient's care today; this time is exclusive of procedural time. Quality VTE Deep Vein Thrombosis/Pulmonary Embolism Present on Admission: No MIPS - Admit I confirm the patient?s Advance Care Plan is present, Code status is documented, Surrogate decision maker is in patient?s record [If Yes, STOP here]: Yes
[2021-10-02 19:54] VITALS: O2SAT 98
--- NOTE | 2021-10-03 06:28 | PC.NURSE ---
Pt slept most of shift, no complaints of pain or discomfort. Up to the bedside commode x3, with 2PA. Pt is weak.
[2021-10-03 08:13] VITALS: BP 119/86; PULSE 102; RESP 18; TEMP 36.4; O2SAT 97
[2021-10-03 08:54] VITALS: O2SAT 96
[2021-10-03 08:57] VITALS: O2SAT 96
[2021-10-03] MEDS: BENZOCAINE/MENTHOL 1 LOZ PKT 1 EACH PO (09:06)
--- NOTE | 2021-10-03 09:14 | CM.DPNOTE ---
Arranged S transport for 1300 per [place]. Spoke to Viviane at [facility]. Maxine Cheema CM Assist.
[2021-10-03] MEDS: SODIUM CHLORIDE 0.9% FLUSH 10 ML IV (09:27)
--- NOTE | 2021-10-03 09:38 | PC.NURSE ---
Day shift: Pt tearful and emotional at approx 0920. Small amount of confusion about her current situation. Oriented to her current situation and this appears to have helped. Reminded her of the plan of going home w/ Hospice care tomorrow. Call light in reach. She did not want any pain meds or Ativan at this time.
--- NOTE | 2021-10-03 10:47 | PM.DS.1 ---
History of Present Illness History of Present Illness Date Patient Seen: 10/03/21 Time Patient Seen: 10:47 Chief complaint: Cancer pt requesting Hospice & pain mgmt Narrative: Per LEO Ely: Paz Garcia is an unfortunate? 71 y.o. with end stage metastatic ovarian cancer to liver and peritoneum, asthma, left kidney mass, exlap in 2019 with BSO, omenectomy and colostomy who presents to the ED for the second day in a row seeking pain control and hospice. She was found to have an esophageal mass, seen in the ED one day ago and offered a feeding tube due to her persistent weight loss and inability to swallow. She had wanted to give it some thought and was in process of being referred to hospice which will not be available likely until later this week. She informs me that she just wants to , she is over this and just wants to be made comfortable. Review of her last oncology note indicated she was receiving palliative Avastin administered q 21 days and and completed a course of Pemetrexed in March 2021. She was to have continued bevacizumab, but it appears she has discontinued this. In the emergency department to they did not do any imaging studies today however CT scan done yesterday indicated dilated fluid-filled esophagus with distal esophageal wall thickening concerning for a distal soft tissue mass.? Today her temperature is 97.0?, blood pressure 144/93, heart rate 82, respiratory rate 18, oxygen saturation of 94% on room air she weighs 46.2 kg with a BMI of 22.6.? COVID PCR is negative. Discharge Providers Provider Date of admission: 09/30/21 21:25 Discharge Date: 10/03/21 Primary care physician: Niraj Cantu MD Consults: 09/30/21 18:31 Consult to [facility] [place] Title Insurance Agent Stat Comment: hospice, end of life 09/30/21 18:32 Consult to [facility] [place] - Title Insurance Agent Stat Comment: 09/30/21 18:35 Consult to Hospice Referral Stat Comment: Patient seeking comfort care 09/30/21 22:11 Consult to Discharge Planning Routine Comment: Consult to Hospice Referral Urgent Comment: Discharge provider: Alfredo Milian DO Summary Hospital Course Discharge Diagnosis: Advanced care planning for palliative care Metastatic late stage ovarian cancer Renal cell carcinoma Partial esophageal obstruction Severe Acute on Chronic Protein Calorie Malnutrition r/t ovarian cancer Hospital Course: This is a 71-year-old female with a past medical history of late stage ovarian cancer as well as a history of renal cell carcinoma who presented with uncontrolled pain.? She was admitted for pain control and once this was achieved with IV medications at first given her esophageal obstruction she was transitioned to oral morphine and ativan (intensol versions of each) with continued improvement in her pain. CT scan did not show a discrete mass causing esophageal obstruction but there is certainly concern for this, steroids were attempted but not helpful in relieving a relieving esophageal obstruction so were subsequently stopped. Patient was eventually discharged home with hospice to open the same day. Time Spent with Patient Time spent: Greater than 30 minutes Exam Vital Signs (past 8 hours): - 10/03/21 08:13 10/03/21 08:54 10/03/21 08:57 Temperature 97.5 F L Pulse Rate 102 H Respiratory Rate 18 Blood Pressure 119/86 Pulse Oximetry 97 96 96 Oxygen Delivery Method Nasal Cannula Oxygen Flow Rate 2 Narrative Exam Narrative: Gen: Alert, oriented, cachectic appearing 80 y.o. female, no acute distress and appears comfortable. HEENT: normocephalic, atraumatic, conjunctiva clear, sclera non-icteric, oral mucosa pink and moist Neck: supple, full ROM, no JVD, trachea is midline Skin: no lesions or rashes, dry and intact Neuro: somnolent and difficult to arouse after morphine and ativan. [facility] Medical History Asthma Double vision Ovarian cancer Renal cell carcinoma Tubal ligation evaluation Surgical History H/O bilateral salpingo-oophorectomy H/O breast biopsy History of colostomy Social History marital status: household members: spouse Smoking Status: Never smoker alcohol intake: never substance use type: does not use Discharge Plan Discharge Plan Patient Disposition: Hospice - Home Provider Discharge Comment: You were admitted to the hospital for pain control. Improved with oral morphine and ativan. These will be continued with hospice at home. Discharge orders & Medications Prescriptions: New lorazepam [Lorazepam Intensol] 2 mg/mL Concentrate 2 mg PO Q1HR PRN (Reason: Anxiety) 7 Days Qty: 30 0RF morphine concentrate 10 mg/0.5 mL Syringe 10 mg PO Q1H PRN (Reason: Pain/Dyspnea) 7 Days Qty: 50 0RF scopolamine base [Transderm-Scop] 1 mg over 3 days Patch 3 Day 1 patch topical Q72H PRN (Reason: Secretions) 10 Days Qty: 4 0RF Continued sertraline 100 mg tablet 200 mg PO DAILY 0RF acetaminophen 500 mg Capsule 500 mg PO Q6H PRN (Reason: PAIN) 0RF ibuprofen 600 mg tablet 600 mg PO Q6H PRN (Reason: pain) 0RF lorazepam 0.5 mg tablet 0.25 - 0.5 mg PO BID 0RF albuterol sulfate [Ventolin HFA] 90 mcg/actuation Hfa Aerosol Inhaler 2 puff INHALATION Q4H PRN (Reason: Shortness Of Breath) 0RF olanzapine 5 mg Tablet 5 mg PO DAILY 0RF oxycodone 5 mg tablet 5 mg PO Q6H PRN (Reason: pain) Qty: 100 0RF fluticasone propionate 110 mcg/actuation HFA aerosol inhaler 1 puff Inhalation BID 0RF Follow up/Referrals: Niraj Cantu MD [Primary Care Provider] - Diet/Activity/Treatments Diet: Diet as Tolerated Diet comment: small bites only to avoid discomfort. Activity: As tolerated Visit Report/Discharge Packet Instructions: End of Life Care, How to Prevent Falls Discharge Data Primary Care Provider: Niraj Cantu V Quality VTE Deep Vein Thrombosis/Pulmonary Embolism Present on Admission: No
--- NOTE | 2021-10-03 13:36 | PC.NURSE ---
This nurse provided D/C teaching and education to pt. pt is aware that family was informed regarding pickup of pt's Rx. Pt departed via stretcher to [facility]. D/C print out and pt report was provided to EMS prior to departure.
--- NOTE | 2021-10-03 15:08 | CM.DPNOTE ---
DC Note Received call from [facility] this morning; they have a slot now available for patient this afternoon. Coordinated plan as follows: DC home this afternoon, BLS arranged for 1300 p/u, screen cutter and trimmer arrival at 1400. Spouse declines hospital bed, Home O2 will be delivered this afternoon for comfort Updated patient, spouse El and Dr Milian, all agreeable to this plan. POLST updated. BLS completed and signed by Dr Milian JW
== END 2021-10-03 13:04 | disposition hospice, home (50) | DRG 947 ==
LOC: ED 19:30 → AC 22:22
PROVIDERS: Admitting Provider Nurse Practitioner Family; Emergency Provider Emergency Medicine; PCP Internal Medicine; Visit Provider Nurse Practitioner Family
DX: G89.3 Neoplasm related pain (acute) (chronic) (principal); E43 Unspecified severe protein-calorie malnutrition; C56.9 Malignant neoplasm of unspecified ovary; C78.7 Secondary malignant neoplasm of liver and intrahepatic bile duct; C78.6 Secondary malignant neoplasm of retroperitoneum and peritoneum; Z68.1 Body mass index [BMI] 19.9 or less, adult; C64.9 Malignant neoplasm of unspecified kidney, except renal pelvis; C77.2 Secondary and unspecified malignant neoplasm of intra-abdominal lymph nodes; K31.1 Adult hypertrophic pyloric stenosis; K22.2 Esophageal obstruction; Z20.822 Contact with and (suspected) exposure to COVID-19; Z51.5 Encounter for palliative care; Z93.3 Colostomy status; R63.4 Abnormal weight loss; K22.89 Other specified disease of esophagus; R13.10 Dysphagia, unspecified; Z71.3 Dietary counseling and surveillance; K20.90 Esophagitis, unspecified without bleeding
CPT/HCPCS: 36415; 71250; 80053; 84156; 85025; 85610; 87635; 96374; 96375; 96376; 97802; 99283; 99284; C9803; J1100; J1170; J1642; J2060; J2270; J2405